=== PATIENT | female | born 1980 | race Caucasian/White ===

== ENCOUNTER 2022-01-23 19:29 | Emergency (ER) | payer MEDICAID, SELFPAY | END 2022-01-23 22:40 | disposition left against medical advice (07) | PROVIDERS: Emergency Provider Emergency Medicine; PCP Nurse Practitioner Primary Care | DX: D69.51 Posttransfusion purpura (principal) ==

== ENCOUNTER → 2022-05-22 09:30 | Outpatient (BNVA) | payer MEDICAID, SELFPAY | PROVIDERS: PCP Nurse Practitioner Primary Care; Visit Provider Physician Assistant Surgical | DX: Z13.89 Encounter for screening for other disorder (principal) ==

== ENCOUNTER 2023-03-07 10:43 | Outpatient (REF) | payer MEDICAID, SELFPAY ==
--- NOTE | ~2023-03-07 | XR_ITS ---
EXAMINATION: XR FOOT, LEFT CLINICAL INFORMATION: Left foot pain COMPARISON: Same-day left ankle TECHNIQUE: AP, lateral, and oblique views of the left foot. FINDINGS: The bones are intact. No fracture. Alignment is anatomic. Joint spaces are maintained. Small posterior plantar calcaneal spur and moderate size Achilles enthesopathy is noted. XR/XR foot LT min 3V IMPRESSION: No acute bony abnormality.
--- NOTE | ~2023-03-07 | XR_ITS ---
EXAMINATION: XR ANKLE, LEFT CLINICAL INFORMATION: Acute left ankle pain COMPARISON: None available. TECHNIQUE: AP and oblique views of the left ankle. FINDINGS: No fracture. Alignment is anatomic. No erosions. Joint spaces are maintained. Soft tissues are normal. XR/XR ankle LT 2V IMPRESSION: No bony abnormality.
== END 2023-03-07 10:44 | disposition home or self-care (01) ==
LOC: HO.XRAY 10:43
PROVIDERS: PCP Nurse Practitioner Primary Care; Visit Provider Nurse Practitioner Primary Care
DX: M25.572 Pain in left ankle and joints of left foot (principal); M79.672 Pain in left foot
CPT/HCPCS: 73600; 73630

== ENCOUNTER 2023-03-17 20:31 | Emergency (ER) | payer MEDICAID, SELFPAY ==
--- NOTE | ~2023-03-17 | XR_ITS ---
EXAMINATION: XR CHEST CLINICAL INFORMATION: Chest pain COMPARISON: None available. TECHNIQUE: 2 views of the chest were obtained. FINDINGS: Tiny area of linear atelectasis is present at the left lung base. No significant abnormality is noted involving the heart, lungs, mediastinum, bony thorax or soft tissues. XR/XR chest 2V IMPRESSION: No acute intrathoracic disease.
[2023-03-17 20:33] VITALS: BP 137/71; PULSE 83; RESP 14; TEMP 36.5; O2SAT 98; BMI 37.1
--- NOTE | 2023-03-17 20:36 | ECG_ITS ---
Test Reason : CHEST PAIN Blood Pressure : / mmHG Vent. Rate : 068 BPM Atrial Rate : 068 BPM P-R Int : 162 ms QRS Dur : 080 ms QT Int : 396 ms P-R-T Axes : 017 066 021 degrees QTc Int : 421 ms Normal sinus rhythm with sinus arrhythmia Normal ECG No previous ECGs available Referred By: Elvia Bobo Electronically Signed By:BHUPINDER CLINTON MD
--- NOTE | 2023-03-17 20:36 | ED.GENADULT ---
HPI - General Adult General Chief complaint: Chest Pain Stated complaint: pain under left breast.dizziness, ear pain Time Seen by Provider: 03/17/23 21:28 Source: patient Mode of arrival: ambulatory Limitations: no limitations History of Present Illness HPI narrative: Patient Been complaining of pain left lower ribs under the breast since early today apparently patient was bending down on the sofa edge no shortness of breath pain increases on deep breath Related Data Previous Rx's Medication Instructions Recorded ibuprofen 600 mg tablet 600 mg PO Q6H PRN fever or pain 03/17/23 #30 tabs Allergies Allergy/AdvReac Type Severity Reaction Status Date / Time No Known Allergies Allergy Verified 05/22/22 10:08 Review of Systems Review of Systems: Yes all other systems are reviewed and are negative [facility] Past Medical History Medical History Hyperlipidemia, unspecified Pseudotumor cerebri Iron deficiency anemia due to chronic blood loss Cardiovascular event risk Depressive disorder Asthma Social History Social History Household Members: Significant Other Advance Directives: No Advance Directives Information Provided: Yes Physical Exam ED Vital Signs: Vital Signs - 24 hr 03/17/23 20:33 Temperature 97.7 F Pulse Rate 83 Respiratory Rate 14 Blood Pressure 137/71 Pulse Oximetry 98 Oxygen Delivery Method Room Air BMI result Body Mass Index 37.1 Appearance: Alert. Oriented X3. No acute distress. Neck: Normal inspection. Neck supple. CVS: Normal heart rate and rhythm. Pulses normal. Respiratory: No respiratory distress. Equal air entry bilateral, no wheezing/rales/rhonchi tender left lower rib Abdomen: Soft and nontender. Bowel sounds are present, no mass palpable, no CVA tenderness Skin: Skin warm and dry. Normal skin color. Normal skin turgor. Extremities: No lower extremity edema. No calf tenderness Neuro: Oriented X 3. No motor deficit. Course Course Course Narrative: RME performed by Elvia Bobo PA-C. Patient is a 42 year old assigned female at presenting to the emergency department with left sided chest pain. Labs, imaging, and swabs ordered. Patient placed back in the waiting room pending room availability and results. Medications Administered Discontinued Medications Generic Name Dose Route Start Last Admin Trade Name Freq PRN Reason Stop Dose Admin Tramadol HCl 50 mg 11/20/23 21:51 03/17/23 22:04 Tramadol Hcl 50 Mg Tablet PO 03/17/23 21:52 50 mg ONCE ONE Administration Medical Decision Making Medical Decision Making [facility] Narrative: Patient clinically musculoskeletal pain when she bent down and hit the edge of the sofa to her left lower ribs x-rays negative for fracture lungs are clear discharge patient home on ibuprofen Differential Diagnosis Differential Diagnoses: The differential diagnosis associated with the presentation includes Musculoskeletal pain/rib contusion/rib fracture Lab Data [facility] Lab Attestation statement: I reviewed the patient's lab results. 03/17/23 20:52 03/17/23 20:52 Labs: Lab Results 03/17/23 Range/Units 20:52 WBC 9.4 (4.8-10.8) X10*3/uL RBC 4.11 L (4.20-5.50) X10*6/uL Hgb 10.0 L (12.0-16.0) g/dl Hct 32.3 L (37.0-47.0) % MCV 78.6 L (80.0-98.0) fL MCH 24.3 L (27.0-33.0) pg MCHC 31.0 (31.0-35.0) g/dl RDW 15.7 (11.0-16.0) % Plt Count 259 (160-400) X10*3/uL MPV 9.6 (9.4-12.3) fL Immature Gran % (Auto) 0.5 H (0.0-0.4) % Neut % (Auto) 61.6 (45-73) % Lymph % (Auto) 29.8 (20-40) % Daniels % (Auto) 6.5 (2-11) % Eos % (Auto) 1.4 (0-4) % Baso % (Auto) 0.2 (0-2) % Lymph # (Auto) 2.8 (1.2-4.9) X10*3/uL Daniels # (Auto) 0.6 (0.1-1.2) X10*3/uL Eos # (Auto) 0.1 (0.0-0.4) X10*3/uL Baso # (Auto) 0.0 (0.0-0.2) X10*3/uL Abs Immat Gran (auto) 0.05 H (0.00-0.03) X10*3/uL Absolute Neuts (auto) 5.8 (2.0-8.3) x10*3/uL Absolute Nucleated RBC 0.000 (0.0-0.012) X10*3/uL Nucleated RBC % (auto) 0.0 (0.0-0.2) /100WBC PT 11.7 (11.1-13.3) SEC INR 1.0 (0.9-1.1) APTT 30.3 (26.0-36.4) SEC Sodium 141 (135-145) mmol/L Potassium 3.6 (3.3-5.1) mmol/L Chloride 109 H (96-108) mmol/L Carbon Dioxide 25 (22-29) mmol/L Anion Gap 11 L (12-20) BUN 7 L (9-16) mg/dL Creatinine 0.90 (0.5-1.4) mg/dL Estim Creat Clear Calc 95.9 Estimated GFR > 60 Random Glucose 114 (60-115) mg/dL Calcium 9.0 (8.4-10.2) mg/dL Magnesium 1.8 (1.6-2.6) mg/dL Total Bilirubin 0.3 (0.0-1.0) mg/dL AST 13 (5-31) U/L ALT 13 (0-31) U/L Alkaline Phosphatase 55 (39-117) U/L Troponin I High Sens < 2.7 (<3.5-17.0) ng/L Total Protein 6.8 (6.5-8.0) g/dL Albumin 3.9 (3.5-5.0) g/dL Influenza Type A (PCR) NEGATIVE (Negative) Influenza Type B (PCR) NEGATIVE (Negative) RSV RNA Qual (PCR) NEGATIVE (Negative) SARS-CoV-2 RNA (RT-PCR) NEGATIVE (Negative) Independent Interpretation I performed an independent interpretation of an: Plain X-Ray Radiology Impression Discussion of test interpretation with radiology: I have reviewed the radiologist's reading. Discharge Plan Discharge Clinical Impression: Anterior chest wall pain Patient Disposition: Home, Self-Care Instructions: Chest Wall Pain (ED) Additional Instructions: Likely have rib contusion take pain medication as prescribed Prescriptions: New ibuprofen 600 mg tablet 600 mg PO Q6H PRN (Reason: fever or pain) Qty: 30 0RF Interventions: ED Discharge Assessment Last Done: 03/17/23 22:31 Discharge Date/Time: 03/17/23 22:31
[2023-03-17 21:03] LABS: Basophils Percent Auto 0.2 % (0-2); Eosinophils Absolute Auto 0.1 X10*3/uL (0.0-0.4); Eosinophils Percent Auto 1.4 % (0-4); Hematocrit 32.3 % (37.0-47.0); Imm Gran Abs Auto 0.05 X10*3/uL (0.00-0.03); Imm Gran Pct Auto 0.5 % (0.0-0.4); Lymphocytes Absolute Auto 2.8 X10*3/uL (1.2-4.9); Lymphocytes Percent Auto 29.8 % (20-40); MANUAL DIFF FLAG NO; Mean Corpuscular Hemoglobin 24.3 pg (27.0-33.0); Mean Corpuscular Volume 78.6 fL (80.0-98.0); Mean Platelet Volume 9.6 fL (9.4-12.3); Monocytes Absolute Auto 0.6 X10*3/uL (0.1-1.2); Monocytes Percent Auto 6.5 % (2-11); Neutrophils Absolute Auto 5.8 x10*3/uL (2.0-8.3); Neutrophils Percent Auto 61.6 % (45-73); Platelet Count 259 X10*3/uL (160-400); Red Blood Count 4.11 X10*6/uL (4.20-5.50); Red Cell Distribution Width 15.7 % (11.0-16.0); White Blood Count 9.4 X10*3/uL (4.8-10.8)
[2023-03-17 21:12] LABS: Prothrombin Time 11.7 SEC (11.1-13.3)
[2023-03-17 21:15] LABS: Partial Thromboplastin Time 30.3 SEC (26.0-36.4)
[2023-03-17 21:23] LABS: Alanine Aminotransferase 13 U/L (0-31); Albumin Level 3.9 g/dL (3.5-5.0); Alkaline Phosphatase 55 U/L (39-117); Anion Gap 11 (12-20); Aspartate Amino Transferase 13 U/L (5-31); Bilirubin Total 0.3 mg/dL (0.0-1.0); Blood Urea Nitrogen 7 mg/dL (9-16); Carbon Dioxide 25 mmol/L (22-29); Chloride 109 mmol/L (96-108); Creatinine Clr Calc Pharmacy 95.9; Estimated Glomerular Filt Rate > 60; Glucose Random 114 mg/dL (60-115); Magnesium 1.8 mg/dL (1.6-2.6); Potassium 3.6 mmol/L (3.3-5.1); Sodium 141 mmol/L (135-145); Total Protein 6.8 g/dL (6.5-8.0)
[2023-03-17 21:36] LABS: Troponin-I High Sensitivity < 2.7 ng/L (<3.5-17.0)
[2023-03-17 21:50] LABS: Influenza A PCR NEGATIVE (Negative); Influenza B PCR NEGATIVE (Negative); Resp Syncy Virus RNA Qual PCR NEGATIVE (Negative); SARS COV2 PCR INHOUSE NEGATIVE (Negative)
[2023-03-17] MEDS: traMADoL HCL 50 MG TABLET PO (22:04)
== END 2023-03-17 22:31 | disposition home or self-care (01) ==
LOC: HO.ED 22:30
PROVIDERS: Physician Assistant Medical; Emergency Provider Internal Medicine; PCP Nurse Practitioner Primary Care
DX: R07.89 Other chest pain (principal); E78.5 Hyperlipidemia, unspecified; D50.9 Iron deficiency anemia, unspecified; Z20.822 Contact with and (suspected) exposure to COVID-19; Z20.828 Contact with and (suspected) exposure to other viral communicable diseases; Z87.891 Personal history of nicotine dependence
CPT/HCPCS: 0241U; 71046; 80053; 83735; 84484; 85025; 85610; 85730; 93005; 99283; 99284

== ENCOUNTER 2023-03-27 09:03 | Outpatient (AMB) | payer MEDICAID, SELFPAY ==
[2023-03-27 09:09] VITALS: BP 128/70; PULSE 90; TEMP 36.3; O2SAT 98; BMI 36.9
--- NOTE | 2023-03-27 09:09 | A.OFFVIS_ITS ---
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 Reports generalized body pains making it difficult to sleep. Was given Tramadol for a chest spasm which she has also taken for the pain and has found relief. Reports cold sensation in the bones for 6 months. Cold and rainy days make her pain worst specially on left hip, down the left leg. Finds relief when bending the left knee. 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 NO prior clinical safety specialist. Medicare Compliance Auditor Required: No Accompanied by: Self / Same As Patient Allergies No Known Allergies Allergy (Verified 03/27/23 09:18) HPI HPI Comments History of Present Illness Details Ms. Leonarda rodriguez 42-year-old female referred for evaluation of left ankle enthesopathy. Patient reports she had ankle pain and was evaluated by her PCP who took an x-ray and they sent her to Rheumatology for further workup. She also reports left-sided pain to her gluteal muscle. Additionally, a time left lateral thigh to feels numb with a weird pain. It sometimes wakes her up at night and she has to constantly turning to change sides during sleep. The pain travels down from her gluteal muscle to the side of her knees at times. She reports that sometimes her left leg feels weak like it is going to fall out from under her. She takes Aleve that sometimes help but the last 2-3 hours and Tylenol is of no effect Patient denies Raynaud's phenomenon, butterfly rash on face ; denies photosensitivity - getting sick or developing a rash from being out in the sun; denies blood or froth in urine; patient denies hx of SOB, chest pain. Patient denies hx of Carditis or Pleuritis. The patient reports never have had o take aspirin or a blood thinner during the successful pregnancies. Denies fevers, excessive fatigue, unexplained weight-loss or weight-gain, Denies: thinning hair or hair loss Denies: dry, itchy eyes, red burning eyes needing steroids to treat. She does report that she was told she has increased pressure in her high and possible glaucoma in the right. Patient denied dry mouth, mouth sores or ulcers; nose bleed; ringing in the ear, She has abdominal pain to right upper quadrant but workup was unrevealing and she was put on a PPI. Patient has bouts of constipation that can last up to 4 days. However, she denies blood or mucous in stool; nausea, vomiting and diarrhea , difficulty swallowing, heartburn. Colonoscopy 1 year ago at [facility] - no concerns per patient. Denies morning stiffness lasting more than 10 mins. She deines red, warm swollen joints. Denies dactylitis, uveitis, plantar fasciitis, low back pain, elbow tendinitis. [facility] Medical History (Updated 03/27/23 @ 10:18 by ENOC Charles-) Piriformis syndrome of left side Left sciatic nerve pain Plantar fasciitis of left foot Psoriasis Enthesopathy of ankle Hyperlipidemia, unspecified Pseudotumor cerebri Iron deficiency anemia due to chronic blood loss Cardiovascular event risk Depressive disorder Asthma Family History (Updated 03/27/23 @ 09:21 by GISELA Aldana) Maternal Aunt Hx of autoimmune disorder Mother Arthritis Maternal Grandmother Arthritis Social History (Updated 03/27/23 @ 09:19 by GISELA Aldana) Household Members: Significant Other Alcohol intake: current Alcohol intake frequency: holidays/special occasions only Patient Tobacco Use Status: Former Tobacco user Years Smoked: 5 Current occupational status: unemployed Female Reproductive History Menstrual Total pregnancies: 6 Review of Systems Const All systems reviewed & are unremarkable except as noted in HPI and below Physical Exam Vital Signs: Last Vital Signs Temp 97.4 F 03/27/23 09:09 Pulse 90 03/27/23 09:09 Pulse Ox 98 03/27/23 09:09 Oxygen Delivery Method Room Air 03/27/23 09:09 BMI result Body Mass Index 36.9 BP 128/70 APPEARANCE: Patient in no acute distress EYES no redness, pupils equal and reactive to light, eyelids normal EARS:? External ear normal, canal clear and tympanic membrane normal. NOSE/SINUS:? Airflow through both nares, no nasal discharge, no bleeding THROAT:? Oral mucosa moist, no ulcerations NECK:? No thyromegaly or masses, no adenopathy, trachea midline. HEART:? Regulrar rhythm, S1-S2 heard, no murmurs, rubs or gallops. LUNG:? Clear to percussion and auscultation ABD:? Normal bowel sounds, no organomegaly, masses or tenderness. EXTREMITIES:? No edema, no calf tenderness, normal peripheral pulses. NEURO:? Oriented and alert x3.? No focal weakness.? Reflexes symmetric.? Gait normal. SKIN:? There are scattered small 1 to 2 cm erythematous lesions on bilateral lower legs, largest on left calf with mild scaling. Disfigured fingernail rate 2nd due to injury per patient. Left great toe psoriasis versus fungus. -brittle nails both toes and fingers. No objective signs of Raynaud's phenomenon. JOINT EXAM: ?Cervical Spine:.? Full range of motion without pain; no tenderness. Thoracic Spine:.? No scoliosis.? No tenderness on palpation. Lumbar Spine:.? Alignment normal.? Full range of motion without pain, no tenderness. Chest Wall:.? No tenderness, swelling, increased warmth or erythema. Hands:.? Normal pain-free range of motion without tenderness, swelling, increased warmth or erythema. Able to make a full fist and has a good flask pusher strength. mild tenderness in MCP grove of left 2nd and 3rd fingers Wrists:.? Normal pain-free range of motion without tenderness, swelling, increased warmth or erythema. Elbows:. Normal pain-free range of motion without tenderness, swelling, increased warmth or erythema. mild tenderness to left lateral epicondyle Shoulders:.?? Full range of motion without pain. No tenderness, weakness, swelling, increased warmth or erythema. Hips:.? Full range of motion without pain. Hip bursa:.?Moderate tenderness to left bursa, lateral mid Gluteal muscle pin point tenderness Knees:.?? Normal pain-free range of motion without tenderness, swelling, i ncreased warmth or erythema.? There is no effusion or crepitation Ankles:.? Normal pain-free range of motion without swelling, increased warmth or erythema. Left heel, plantar and achilles tenderness, Feet:.? Normal pain-free range of motion without swelling, increased warmth or erythema. tenderness to dorsum left football scout points:? No tenderness to digital palpation at the occiput, trapezius, second rib, right lateral epicondyle, knees, greater trochanter and gluteal area bilaterally. ? Office Procedures Joint Injection/Drain Joint Injection/Drain Details: Left Piriformis Muscle/Sciatica Injection Primary Site: other Injected: 40 mg of, Kenalog, with 1 mL of and 1% plain lidocaine Approach Used: anterolateral Procedure: The patient tolerated the procedure well Coding 74188 - Sternocleidomastoid/Piriformis Procedure code (CPT) selection complete Results Reviewed Results Reviewed: FINDINGS: Tiny area of linear atelectasis is present at the left lung base. No significant abnormality is noted involving the heart, lungs, mediastinum, bony thorax or soft tissues. XR/XR chest 2V IMPRESSION: No acute intrathoracic disease. TECHNIQUE: AP, lateral, and oblique views of the left foot. FINDINGS: The bones are intact. No fracture. Alignment is anatomic. Joint spaces are maintained. Small posterior plantar calcaneal spur and moderate size Achilles enthesopathy is noted. FINDINGS: No fracture. Alignment is anatomic. No erosions. Joint spaces are maintained. Soft tissues are normal. XR/XR ankle LT 2V IMPRESSION: No bony abnormality. Laboratory Tests 03/17/23 20:52 RBC 4.11 L Hgb 10.0 L Hct 32.3 L MCV 78.6 L MCH 24.3 L Immature Gran % (Auto) 0.5 H Abs Immat Gran (auto) 0.05 H Chloride 109 H Anion Gap 11 L BUN 7 L Assessment & Plan Assessment & Plan (1) Enthesopathy of ankle: Code(s): M77.50 - Other enthesopathy of unspecified foot and ankle (2) Psoriasis: Code(s): L40.9 - Psoriasis, unspecified (3) Plantar fasciitis of left foot: Code(s): M72.2 - Plantar fascial fibromatosis (4) Piriformis syndrome of left side: Code(s): G57.02 - Lesion of sciatic nerve, left lower limb (5) Left sciatic nerve pain: Code(s): M54.32 - Sciatica, left side Plan #Left Ankle Enthesopathy/Psoriasis/PsA: Ms. Eric, 42-year-old female, referred to our practice by PCP for evaluation of left ankle enthesopathy. 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 She has scattered lesions on her lower extremities that she says happens intermittently since 2017. They are effectively treated with hydrocortisone cream and oatmeal exfoliate. 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 Per patient she does not get them when she is m ore exposed to the sun in [place]. Left Ankle Xray shows small posterior plantar calcaneal spur and moderate size Achilles enthesopathy. She does have tenderness on PE of the left Achilles, none on the right. I will obtain additional imaging to assess the right ankle. Patient denies chronic tendinitis and tenderness in other joints, and none observed on PE. Enthisitis a common occurrence in the presence of SPA such as PsA. She denies other signs symptoms of psoriatic arthritis such as uveitis, red warm swollen joints, DIP tenderness, dactylitis and lower back pain. She does endorses IBS. She does have thin nails but no pitting observe. The great left toenail does have look of psoriasis or possible fungal. Nonetheless I do not think she requires empiric treatment at this time. Her psoriasis is being effectively treated with topical hydrocortisone. I will refer her to Podiatry for further evaluation of her left foot as patient describe what could possibly be plantar fasciitis and she does have a heel spur also seen on xray which is painful for her. I anticipate that podiatry can help. At this time I will do thin it is necessary to start a systemic immunomdulator. Will continue to monitor for increase in and worsening of symptoms. Will review with patient Possible Dermatology evaluation. #Left Sciatic Nerve/Piriformis Muscle: I think she will benefit from physical therapy for her left sciatic nerve pain and piriformis muscle pain. It seems reasonable to me so I gave her an injection that could help relieve the acute discomfort. Patient cautioned to modify her activities not to engage in anything strenuous for the next couple of day steroids. Orders: Orders Anti Extractable Nuclear Ag Today L40.9 - Psoriasis, unspecified, M77.50 - Other enthesopathy of unspecified foot and ankle C Reactive Protein Today L40.9 - Psoriasis, unspecified, M77.50 - Other enthesopathy of unspecified foot and ankle Erythrocyte Sedimentation Rate Today L40.9 - Psoriasis, unspecified, M77.50 - Other enthesopathy of unspecified foot and ankle RUSSELL Reflex Titer and Pattern Today L40.9 - Psoriasis, unspecified, M77.50 - Other enthesopathy of unspecified foot and ankle Creatine Kinase Total Today L40.9 - Psoriasis, unspecified, M77.50 - Other enthesopathy of unspecified foot and ankle Aldolase Today L40.9 - Psoriasis, unspecified, M77.50 - Other enthesopathy of unspecified foot and ankle HLA B27 Today L40.9 - Psoriasis, unspecified, M77.50 - Other enthesopathy of unspecified foot and ankle PT Evaluation and Treatment Today G57.02 - Lesion of sciatic nerve, left lower limb, M54.32 - Sciatica, left side Referrals Podiatry Referral M72.2 - Plantar fascial fibromatosis, M77.50 - Other enthesopathy of unspecified foot and ankle Coding Level of Care Code New Pt Level 4 (09553) Diagnoses Enthesopathy of ankle M77.50 Psoriasis L40.9 Plantar fasciitis of left foot M72.2 Piriformis syndrome of left side G57.02 Left sciatic nerve pain M54.32 CPT Codes Coding - Joint 3: 32727 - Sternocleidomastoid/Piriformis ([id number])
== END 2023-03-27 10:35 | disposition home or self-care (01) ==
PROVIDERS: PCP Nurse Practitioner Primary Care; Visit Provider Nurse Practitioner Family
DX: M77.50 Other enthesopathy of unspecified foot and ankle (principal); L40.9 Psoriasis, unspecified; M72.2 Plantar fascial fibromatosis; G57.02 Lesion of sciatic nerve, left lower limb; M54.32 Sciatica, left side
CPT/HCPCS: 20552; 99204

== ENCOUNTER → 2023-03-27 09:03 | Outpatient (BNVA) | payer MEDICAID, SELFPAY | PROVIDERS: PCP Nurse Practitioner Primary Care; Visit Provider Nurse Practitioner Family | DX: M77.50 Other enthesopathy of unspecified foot and ankle (principal); M72.2 Plantar fascial fibromatosis; M54.32 Sciatica, left side; L40.9 Psoriasis, unspecified; G57.02 Lesion of sciatic nerve, left lower limb | CPT/HCPCS: 20552; 99212 ==

== ENCOUNTER 2023-04-01 13:59 | Outpatient (REF) | payer MEDICAID, SELFPAY ==
[2023-04-01 15:11] LABS: C Reactive Protein 0.87 mg/dL (< or = 0.50)
[2023-04-01 15:24] LABS: Erythrocyte Sedimentation Rate 9 MM/HR (0-20)
[2023-04-04 12:24] LABS: SM/Ribonucleoprotein Ab <1.0 NEG AI (<1.0 NEG); Smith Protein <1.0 NEG AI (<1.0 NEG)
[2023-04-05 17:27] LABS: HLA B27 Negative (Negative)
[2023-04-06 14:49] LABS: Aldolase 3.8 U/L (<=8.1)
[2023-04-07 14:14] LABS: Anti Nuclear Antibody Screen NEGATIVE (NEGATIVE)
== END 2023-04-01 14:00 | disposition home or self-care (01) ==
LOC: HO.LAB 13:59
PROVIDERS: PCP Nurse Practitioner Primary Care; Visit Provider Nurse Practitioner Family
DX: M77.50 Other enthesopathy of unspecified foot and ankle (principal); L40.9 Psoriasis, unspecified
CPT/HCPCS: 36415; 82085; 82550; 85652; 86038; 86140; 86235; 86812

== ENCOUNTER 2023-05-06 09:36 | Outpatient (AMB) | payer MEDICAID, SELFPAY ==
--- NOTE | 2023-05-06 09:37 | A.OFFVIS_ITS ---
Intake Vital Signs 05/06/23 09:48 Height 5 ft 5 in Weight 218 lb 14.704 oz BMI 36.4 BP 100/60 Blood Pressure Location Rt brachial Position Sitting Pulse 77 Pulse Source Pulse Oximeter Temp 97.7 F Temp Source Skin Pulse Oximetry (%) 97 Oxygen Delivery Method Room Air Intake Visit Reasons: PsO, Left Ankle Enthesitis, Left Sciatica Intake Note: Patient last seen 03/27/23, presents today for follow up and test results. c/o left ankle pain c/o hand shakiness x 1 mo, has caught herself close to dropping items c/o left thumb pulling back Reports receiving a series of 3 injections on left shoulder at PCP's office. ? Euglexxa. Heavy Repairer Required: No Accompanied by: Self / Same As Patient Allergies No Known Allergies Allergy (Verified 05/06/23 09:49) HPI HPI Comments History of Present Illness Details Ms. Eric 42-year-old female has returned for follow-up to her initial evaluation of left ankle enthesopathy. She expresses relief from the injection to the left trochanteric bursa and gluteal muscle. She continues with pain to her left ankle. She has new onset of lower back pain which she thinks was incited by sudden twist in her body movement. Lower back pain is helped with Aleve which lasts about 6 hours per patient;hot showers also help. The patient describes that she thinks she would benefit from using a compression device to her abdomen which she Avinash does cause additional strain and stress to her lower back due to the increase weight gain in her abdomen. She has not yet started PT as prescribed last visit - she desires to resolve the concerns with her lower back before starting PT. Per patient her ankle pain is worse during the colder weather Prior Visit Ms. Eric 42-year-old female referred for evaluation of left ankle enthesopathy. Patient reports she had ankle pain and was evaluated by her PCP who took an x-ray and they sent her to Rheumatology for further workup. She also reports left-sided pain to her gluteal muscle. Additionally, a time left lateral thigh to feels numb with a weird pain. It sometimes wakes her up at night and she has to constantly turning to change sides during sleep. The pain travels down from her gluteal muscle to the side of her knees at times. She reports that sometimes her left leg feels weak like it is going to fall out from under her. She takes Aleve that sometimes help but the last 2-3 hours and Tylenol is of no effect Patient denies Raynaud's phenomenon, butterfly rash on face ; denies photosensitivity - getting sick or developing a rash from being out in the sun; denies blood or froth in urine; patient denies hx of SOB, chest pain. Patient denies hx of Carditis or Pleuritis. The patient reports never have had o take aspirin or a blood thinner during the successful pregnancies. Denies fevers, excessive fatigue, unexplained weight-loss or weight-gain, Denies: thinning hair or hair loss Denies: dry, itchy eyes, red burning eyes needing steroids to treat. She does report that she was told she has increased pressure in her high and possible glaucoma in the right. Patient denied dry mouth, mouth sores or ulcers; nose bleed; ringing in the ear, She has abdominal pain to right upper quadrant but workup was unrevealing and she was put on a PPI. Patient has bouts of constipation that can last up to 4 days. However, she denies blood or mucous in stool; nausea, vomiting and diarrhea , difficulty swallowing, heartburn. Colonoscopy 1 year ago at [facility] - no concerns per patient. Denies morning stiffness lasting more than 10 mins. She deines red, warm swollen joints. Denies dactylitis, uveitis, plantar fasciitis, low back pain, elbow tendinitis. [facility] Medical History (Updated 03/27/23 @ 10:18 by Rachel Allen [facility]) Piriformis syndrome of left side Left sciatic nerve pain Plantar fasciitis of left foot Psoriasis Enthesopathy of ankle Hyperlipidemia, unspecified Pseudotumor cerebri Iron deficiency anemia due to chronic blood loss Cardiovascular event risk Depressive disorder Asthma Family History Maternal Aunt Hx of autoimmune disorder Mother Arthritis Maternal Grandmother Arthritis Social History (Updated 05/06/23 @ 09:52 by GISELA Cruz) Household Members: Significant Other Alcohol intake: current Alcohol intake frequency: holidays/special occasions only Patient Tobacco Use Status: Former Tobacco user Years Smoked: 5 Substance Use Type: Marijuana Current occupational status: unemployed Review of Systems Const All systems reviewed & are unremarkable except as noted in HPI and below Physical Exam Vital Signs: Last Vital Signs Temp 97.7 F 05/06/23 09:48 Pulse 77 05/06/23 09:48 BP 100/60 05/06/23 09:48 Pulse Ox 97 05/06/23 09:48 Oxygen Delivery Method Room Air 05/06/23 09:48 BMI result Body Mass Index 36.4 BP 128/70 APPEARANCE: Patient in no acute distress EYES no redness, pupils equal and reactive to light, eyelids normal EARS:? External ear normal, canal clear and tympanic membrane normal. NOSE/SINUS:? Airflow through both nares, no nasal discharge, no bleeding THROAT:? Oral mucosa moist, no ulcerations NECK:? No thyromegaly or masses, no adenopathy, trachea midline. HEART:? Regulrar rhythm, S1-S2 heard, no murmurs, rubs or gallops. LUNG:? Clear to percussion and auscultation ABD:? Normal bowel sounds, no organomegaly, masses or tenderness. EXTREMITIES:? No edema, no calf tenderness, normal peripheral pulses. NEURO:? Oriented and alert x3.? No focal weakness.? Reflexes symmetric.? Gait normal. SKIN:? The scattered small 1 to 2 cm erythematous lesions on bilateral lower legs, largest on left calf with mild scaling that was previous, has resolved ast this visit. Disfigured fingernail rate 2nd due to injury per patient. Left great toe psoriasis versus fungus. -brittle nails both toes and fingers. No objective signs of Raynaud's phenomenon. JOINT EXAM: Cervical Spine:.? Full range of motion without pain; no tenderness. Thoracic Spine:.? No scoliosis.? No tenderness on palpation. Lumbar Spine:.? Alignment normal.?Reduced range of motion without pain, with tenderness. Chest Wall:.? No tenderness, swelling, increased warmth or erythema. Hands:.? Normal pain-free range of motion without tenderness, swelling, increased warmth or erythema. 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 mild tenderness in MCP grove of left 2nd and 3rd fingers Wrists:.? Normal pain-free range of motion without tenderness, swelling, increased warmth or erythema. Elbows:. Normal pain-free range of motion without tenderness, swelling, increased warmth or erythema. mild tenderness to left lateral epicondyle Shoulders:.?? Full range of motion without pain. No tenderness, weakness, swelling, increased warmth or erythema. Hips:.? Full range of motion without pain. Hip bursa:.?No tenderness to left or right bursa. Left lateral mid Gluteal muscle pin point tenderness has resolved Knees:.?? Normal pain-free range of motion without tenderness, swelling, increased warmth or erythema.? There is no effusion or crepitation Ankles:.? Normal pain-free range of motion without swelling, increased warmth or erythema. Left heel, plantar and achilles tenderness, Feet:.? Normal pain-free range of motion without swelling, increased warmth or erythema. 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 No tenderness to digital palpation at the occiput, trapezius, second rib, right lateral epicondyle, knees, greater trochanter and gluteal area bilaterally. ? Assessment & Plan Assessment & Plan (1) Enthesopathy of ankle: Code(s): M77.50 - Other enthesopathy of unspecified foot and ankle (2) Psoriasis: Code(s): L40.9 - Psoriasis, unspecified (3) Plantar fasciitis of left foot: Code(s): M72.2 - Plantar fascial fibromatosis (4) Piriformis syndrome of left side: Code(s): G57.02 - Lesion of sciatic nerve, left lower limb (5) Left sciatic nerve pain: Code(s): M54.32 - Sciatica, left side Plan #Left Ankle Enthesopathy/Psoriasis/PsA: Ms. Eric, 42-year-old female, returns for follow-up of left ankle enthesopathy. Serology was unrevealing (Negative for CCP, RF, HLAB27, ESR, RUSSELL). There was a mild elevation in CRP at 0.87. Though the patient may have symptoms for mild onset of PSA, at this time I do not think there is a need for immunosuppressive therapy. 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 Bilateral Ankle Xray shows small posterior plantar calcaneal spur and moderate size Achilles enthesopathy. She does have tenderness on PE of the left Achilles, none on the right. Patient denies chronic tendinitis and tenderness in other joints, and none observed on PE. Enthisitis a common occurrence in the presence of SPA such as PsA. She denies other signs symptoms of psoriatic arthritis such as uveitis, red warm swollen joints, DIP tenderness, dactylitis and lower back pain. She does endorses IBS. She does have thin nails but no pitting observe. The great left toenail does have look of psoriasis or possible fungal. Nonetheless I do not think she requires empiric treatment at this time. Her psoriasis is being effectively treated with topical hydrocortisone. She has an active referral to Podiatry for further evaluation of her left foot as patient described what could possibly be plantar fasciitis and she does have a heel spur also seen on xray which is painful for her. I anticipate that podiatry can help. At this time I will do think it is necessary to start a systemic immunomdulator. Will continue to monitor for increase in and worsening of symptoms. #Left Sciatic Nerve/Piriformis Muscle: She has an active referral to physical therapy for her left sciatic nerve pain and piriformis muscle pain but did not start. The cortisone injection given at last visit seem to have helped. Follow-up in 4 months I have spent 20 minutes reviewing chart, evaluating patient, and documenting. Coding Level of Care Code Est Pt Level 3 (38145) Diagnoses Enthesopathy of ankle M77.50 Psoriasis L40.9 Plantar fasciitis of left foot M72.2 Piriformis syndrome of left side G57.02 Left sciatic nerve pain M54.32
[2023-05-06 09:48] VITALS: BP 100/60; PULSE 77; TEMP 36.5; O2SAT 97; BMI 36.4
== END 2023-05-06 10:25 | disposition home or self-care (01) ==
PROVIDERS: PCP Nurse Practitioner Primary Care; Visit Provider Nurse Practitioner Family
DX: M77.52 Other enthesopathy of left foot and ankle (principal); L40.9 Psoriasis, unspecified; M72.2 Plantar fascial fibromatosis; G57.02 Lesion of sciatic nerve, left lower limb; M54.32 Sciatica, left side
CPT/HCPCS: 99213

== ENCOUNTER → 2023-05-06 09:36 | Outpatient (BNVA) | payer MEDICAID, SELFPAY | PROVIDERS: PCP Nurse Practitioner Primary Care; Visit Provider Nurse Practitioner Family | DX: M77.50 Other enthesopathy of unspecified foot and ankle (principal); M54.32 Sciatica, left side; L40.9 Psoriasis, unspecified; M72.2 Plantar fascial fibromatosis; G57.02 Lesion of sciatic nerve, left lower limb | CPT/HCPCS: 99212 ==

== ENCOUNTER 2023-08-20 | Outpatient (REF) | payer MEDICAID, SELFPAY ==
[2023-08-21 11:59] LABS: Appearance Urine Turbid; Color Urine Yellow; Glucose Urine UA Negative (Negative); Leukocyte Esterase Urine Trace (Negative); Nitrite Urine Negative (Negative); PH 5.5 (5.0-9.0); UMIC TRIGGER UACC YES; Urine Blood Negative (Negative); Urine Ketones Negative (Negative); Urine Protein Negative (Neg-Trace)
[2023-08-21 12:03] LABS: Bacteria Urine None Seen (None Seen); Hyaline Casts Urine 0-2 /LPF (0-2); RBC Urine 0-2 /HPF (0-2); WBC Urine 0-5 /HPF (0-5)
== END 2023-08-20 00:01 | disposition home or self-care (01) ==
LOC: HO.HHCLNP
PROVIDERS: Visit Provider Family Medicine
DX: R10.9 Unspecified abdominal pain (principal); R82.90 Unspecified abnormal findings in urine
CPT/HCPCS: 81001

== ENCOUNTER 2023-08-22 13:01 | Outpatient (REF) | payer MEDICAID, SELFPAY ==
--- NOTE | ~2023-08-22 | US_ITS ---
EXAMINATION: US RETROPERITONEAL LIMITED (RENAL ONLY) CLINICAL INFORMATION: Right flank pain. COMPARISON: None available. TECHNIQUE: Real-time imaging of the kidneys. FINDINGS: RIGHT KIDNEY: 11.3 x 4.2 x 5.1 cm (SAG x AP x TRV). The kidney is normal in size, contour, and echogenicity. Renal cortical thickness is normal. No calculi or focal parenchymal lesions. No hydronephrosis. Hyperechoic area is seen in upper right renal cortex measuring 0.4 x 0.5 cm in size, visible only on the longitudinal images. Nonspecific right lower renal pole echogenic focus without twinkle artifact is present. LEFT KIDNEY: 11.8 x 5.8 x 4.2 cm (SAG x AP x TRV). The kidney is normal in size, contour, and echogenicity. Renal cortical thickness is normal. No calculi or focal parenchymal lesions. No hydronephrosis. US/US renal BI IMPRESSION: 1. No hydronephrosis. 2. Nonspecific right lower renal pole echogenic focus without twinkle artifact is present, may represent atherosclerotic calcification. 3. Hyperechoic area in upper right renal cortex measuring 0.4 x 0.5 cm in size, visible only on the longitudinal images, could be suggestive of angiomyolipoma. 4. Consider follow-up ultrasound in 6 months.
--- NOTE | ~2023-08-22 | XR_ITS ---
EXAMINATION: XR CHEST CLINICAL INFORMATION: Pleuritic pain/flank pain COMPARISON: Chest 03/17/2023 TECHNIQUE: 2 views of the chest were obtained. FINDINGS: No significant abnormality is noted involving the heart, lungs, mediastinum, bony thorax or soft tissues. XR/XR chest 2V IMPRESSION: No acute cardiopulmonary disease.
== END 2023-08-22 13:02 | disposition home or self-care (01) ==
LOC: HO.US 13:01
PROVIDERS: PCP Nurse Practitioner Primary Care; Visit Provider Family Medicine
DX: R07.81 Pleurodynia (principal); R10.9 Unspecified abdominal pain
CPT/HCPCS: 71046; 76775

== ENCOUNTER 2023-09-04 10:06 | Outpatient (AMB) | payer MEDICAID, SELFPAY ==
--- NOTE | 2023-09-04 10:12 | MHC.OFFVIS ---
Vital Signs 09/04/23 10:17 Height 5 ft 5 in Weight 218 lb 0.595 oz BMI 36.3 BP 138/78 Blood Pressure Location Rt brachial Position Sitting Pulse 73 Pulse Source Pulse Oximeter Pulse Oximetry (%) 98 Oxygen Delivery Method Room Air Intake Visit Reasons: Sciatica/Low Back Pain/CM Intake Note: Patient presents today c/o worsening left knee pain that radiates to the left hip. Patient is also experiencing bucky knee pain that gets very uncomfortable around 8-9am. She is also having feet pain when staning for a long period of time. Gripper Installer Required: No Accompanied by: Self / Same As Patient Allergies No Known Allergies Allergy (Verified 09/04/23 10:18) HPI Comments Details: Ms. Eric 42-year-old female has returned for follow-up of her left ankle enthesopathy and Trochanteric Bursitis. . She expresses relief from the injection to the left trochanteric bursa and gluteal muscle. given at She continues with pain to her left ankle. She has new onset of lower back pain which she thinks was incited by sudden twist in her body movement. Lower back pain is helped with Aleve which lasts about 6 hours per patient;hot showers also help. The patient describes that she thinks she would benefit from using a compression device to her abdomen which she Avinash does cause additional strain and stress to her lower back due to the increase weight gain in her abdomen. She has not yet started PT as prescribed last visit - she desires to resolve the concerns with her lower back before starting PT. Per patient her ankle pain is worse during the colder weather 04/28/2023:Ms. Eric 42-year-old female has returned for follow-up to her initial evaluation of left ankle enthesopathy. She expresses relief from the injection to the left trochanteric bursa and gluteal muscle. She continues with pain to her left ankle. She has new onset of lower back pain which she thinks was incited by sudden twist in her body movement. Lower back pain is helped with Aleve which lasts about 6 hours per patient;hot showers also help. The patient describes that she thinks she would benefit from using a compression device to her abdomen which she Avinash does cause additional strain and stress to her lower back due to the increase weight gain in her abdomen. She has not yet started PT as prescribed last visit - she desires to resolve the concerns with her lower back before starting PT. Per patient her ankle pain is worse during the colder weather 02/2023 Prior Visit: Ms. Eric 42-year-old female referred for evaluation of left ankle enthesopathy. Patient reports she had ankle pain and was evaluated by her PCP who took an x-ray and they sent her to Rheumatology for further workup. She also reports left-sided pain to her gluteal muscle. Additionally, a time left lateral thigh to feels numb with a weird pain. It sometimes wakes her up at night and she has to constantly turning to change sides during sleep. The pain travels down from her gluteal muscle to the side of her knees at times. She reports that sometimes her left leg feels weak like it is going to fall out from under her. She takes Aleve that sometimes help but the last 2-3 hours and Tylenol is of no effect Patient denies Raynaud's phenomenon, butterfly rash on face ; denies photosensitivity - getting sick or developing a rash from being out in the sun; denies blood or froth in urine; patient denies hx of SOB, chest pain. Patient denies hx of Carditis or Pleuritis. The patient reports never have had o take aspirin or a blood thinner during the successful pregnancies. Denies fevers, excessive fatigue, unexplained weight-loss or weight-gain, Denies: thinning hair or hair loss Denies: dry, itchy eyes, red burning eyes needing steroids to treat. She does report that she was told she has increased pressure in her high and possible glaucoma in the right. Patient denied dry mouth, mouth sores or ulcers; nose bleed; ringing in the ear, She has abdominal pain to right upper quadrant but workup was unrevealing and she was put on a PPI. Patient has bouts of constipation that can last up to 4 days. However, she denies blood or mucous in stool; nausea, vomiting and diarrhea , difficulty swallowing, heartburn. Colonoscopy 1 year ago at [facility] - no concerns per patient. Denies morning stiffness lasting more than 10 mins. She deines red, warm swollen joints. Denies dactylitis, uveitis, plantar fasciitis, low back pain, elbow tendinitis. [facility] Medical History (Updated 09/04/23 @ 10:48 by Rachel Alejandro, [employer]) Trochanteric bursitis, left hip Piriformis syndrome of left side Left sciatic nerve pain Plantar fasciitis of left foot Psoriasis Enthesopathy of ankle Hyperlipidemia, unspecified Pseudotumor cerebri Iron deficiency anemia due to chronic blood loss Cardiovascular event risk Depressive disorder Asthma Family History Maternal Aunt Hx of autoimmune disorder Mother Arthritis Maternal Grandmother Arthritis Social History Household Members: Significant Other Alcohol intake: current Alcohol intake frequency: holidays/special occasions only Patient Tobacco Use Status: Former Tobacco user Years Smoked: 5 Substance Use Type: Marijuana Current occupational status: unemployed Physical Exam Vital Signs: Last Vital Signs Pulse 73 09/04/23 10:17 BP 138/78 09/04/23 10:17 Pulse Ox 98 09/04/23 10:17 Oxygen Delivery Method Room Air 09/04/23 10:17 BMI result Body Mass Index 36.3 APPEARANCE: Patient in no acute distress; Patient thinks elevated BP due using stairs to come to office. EYES no redness, pupils equal and reactive to light, eyelids normal EARS:? External ear normal, canal clear and tympanic membrane normal. NOSE/SINUS:? Airflow through both nares, no nasal discharge, no bleeding THROAT:? Oral mucosa moist, no ulcerations NECK:? No thyromegaly or masses, no adenopathy, trachea midline. HEART:? Regulrar rhythm, S1-S2 heard, no murmurs, rubs or gallops. LUNG:? Clear to percussion and auscultation ABD:? Normal bowel sounds, no organomegaly, masses or tenderness. EXTREMITIES:? No edema, no calf tenderness, normal peripheral pulses. NEURO:? Oriented and alert x3.? No focal weakness.? Reflexes symmetric.? Gait normal. SKIN:? Hyperpigmentation remains from resolution of scattered small 1 to 2 cm erythematous lesions on bilateral lower legs, largest on left calf with mild scaling that was previous which remains resolved from prior visits. Disfigured fingernail rate 2nd due to injury per patient. Left great toe psoriasis versus fungus. -brittle nails both toes and fingers. No objective signs of Raynaud's phenomenon. JOINT EXAM: Cervical Spine:.? Full range of motion without pain; no tenderness. Thoracic Spine:.? No scoliosis.? No tenderness on palpation. Lumbar Spine:.? Alignment normal.?Reduced range of motion without pain, with tenderness. Chest Wall:.? No tenderness, swelling, increased warmth or erythema. Hands:.? Normal pain-free range of motion without tenderness, swelling, increased warmth or erythema. 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 mild tenderness in MCP grove of left 2nd and 3rd fingers Wrists:.? Normal pain-free range of motion without tenderness, swelling, increased warmth or erythema. Elbows:. Normal pain-free range of motion without tenderness, swelling, increased warmth or erythema. mild tenderness to left lateral epicondyle Shoulders:.?? Full range of motion without pain. No tenderness, weakness, swelling, increased warmth or erythema. Hips:.? Full range of motion without pain. Hip bursa:.?No tenderness to left or right bursa. Left lateral mid Gluteal muscle pin point tenderness has resolved Knees:.?? Normal pain-free range of motion without tenderness, swelling, increased warmth or erythema.? There is no effusion or crepitation Ankles:.? Normal pain-free range of motion without swelling, increased warmth or erythema. Left heel, plantar and achilles tenderness, Feet:.? Normal pain-free range of motion without swelling, increased warmth or erythema. tenderness to dorsum left curer acid drum points:? No tenderness to digital palpation at the occiput, trapezius, second rib, right lateral epicondyle, knees, greater trochanter and gluteal area bilaterally. ? Office Procedures Joint Injection/Drain Joint Injection/Drain Primary Site: other (Left Trochanteric Bursa) Prep: site was prepped using aseptic technique Injected: 40 mg of, Kenalog, with 1 mL of and 1% plain lidocaine Approach Used: posterolateral Procedure: The patient tolerated the procedure well Coding 86839 - Glenohumeral/Tronchanteric Bursa/Intraarticular Procedure code (CPT) selection complete Assessment & Plan Assessment & Plan (1) Enthesopathy of ankle: Code(s): M77.50 - Other enthesopathy of unspecified foot and ankle Category: Medical (2) Psoriasis: Code(s): L40.9 - Psoriasis, unspecified Category: Medical (3) Plantar fasciitis of left foot: Code(s): M72.2 - Plantar fascial fibromatosis Category: Medical (4) Piriformis syndrome of left side: Code(s): G57.02 - Lesion of sciatic nerve, left lower limb Category: Medical (5) Left sciatic nerve pain: Code(s): M54.32 - Sciatica, left side Category: Medical (6) Trochanteric bursitis, left hip: Code(s): M70.62 - Trochanteric bursitis, left hip Category: Medical Plan #Left Ankle Enthesopathy/Psoriasis/PsA: Ms. Eric, 42-year-old female, returns for follow-up of left ankle enthesopathy. Serology was unrevealing (Negative for CCP, RF, HLAB27, ESR, RUSSELL). There was a mild elevation in CRP at 0.87. Though the patient may have symptoms for mild onset of PSA, at this time I do not think there is a need for immunosuppressive therapy. 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 Bilateral Ankle Xray shows small posterior plantar calcaneal spur and moderate size Achilles enthesopathy. She does have tenderness on PE of the left Achilles, none on the right. Patient denies chronic tendinitis and tenderness in other joints, and none observed on PE. Enthisitis a common occurrence in the presence of SPA such as PsA. She denies other signs symptoms of psoriatic arthritis such as uveitis, red warm swollen joints, DIP tenderness, dactylitis and lower back pain. She does endorses IBS. She does have thin nails but no pitting observe. The great left toenail does have look of psoriasis or possible fungal. Nonetheless I do not think she requires empiric treatment at this time. Her psoriasis is being effectively treated with topical hydrocortisone. She has an active referral to Podiatry for further evaluation of her left foot as patient described what could possibly be plantar fasciitis and she does have a heel spur also seen on xray which is painful for her. I anticipate that podiatry can help. At this time I will do think it is necessary to start a systemic immunomdulator. Will continue to monitor for increase in and worsening of symptoms. #Left Sciatic Nerve/Piriformis Muscle: She has an active referral to physical therapy for her left sciatic nerve pain and piriformis muscle pain but did not start. The cortisone injection given at last visit in april seem to have helped so she desires it again. Follow-up in 4 months I have spent 20 minutes reviewing chart, evaluating patient, and documenting. Orders: Orders AMB Joint Injection/Aspiration 09/04/23 M70.62 - Trochanteric bursitis, left hip Coding Level of Care Code Est Pt Level 3 (48279) Complex EM visit Add On G2211 Diagnoses Enthesopathy of ankle M77.50 Psoriasis L40.9 Plantar fasciitis of left foot M72.2 Piriformis syndrome of left side G57.02 Left sciatic nerve pain M54.32 Trochanteric bursitis, left hip M70.62 CPT Codes Coding - Joint 7: 03100 - Glenohumeral/Tronchanteric Bursa/Intraarticular ([id number])
[2023-09-04 10:17] VITALS: BP 138/78; PULSE 73; O2SAT 98; BMI 36.3
== END 2023-09-04 10:47 | disposition home or self-care (01) ==
LOC: HO.RHE 10:07
PROVIDERS: PCP Nurse Practitioner Primary Care; Visit Provider Nurse Practitioner Family
DX: M77.50 Other enthesopathy of unspecified foot and ankle (principal); L40.9 Psoriasis, unspecified; M72.2 Plantar fascial fibromatosis; G57.02 Lesion of sciatic nerve, left lower limb; M54.32 Sciatica, left side; M70.62 Trochanteric bursitis, left hip
CPT/HCPCS: 20610; 99213

== ENCOUNTER → 2023-09-04 10:06 | Outpatient (BNVA) | payer MEDICAID, SELFPAY | PROVIDERS: PCP Nurse Practitioner Primary Care; Visit Provider Nurse Practitioner Family | DX: M77.50 Other enthesopathy of unspecified foot and ankle (principal); M72.2 Plantar fascial fibromatosis; M54.32 Sciatica, left side; M70.62 Trochanteric bursitis, left hip; L40.9 Psoriasis, unspecified; G57.02 Lesion of sciatic nerve, left lower limb | CPT/HCPCS: 20610; 99212 ==

== ENCOUNTER → 2023-10-07 08:00 | Outpatient (BNV) | payer MEDICAID, SELFPAY | PROVIDERS: PCP Nurse Practitioner Primary Care; Visit Provider Radiology Diagnostic Radiology | DX: Z12.31 Encounter for screening mammogram for malignant neoplasm of breast (principal) | CPT/HCPCS: 77063; 77067 ==

== ENCOUNTER 2023-10-07 08:11 | Outpatient (REF) | payer MEDICAID, SELFPAY ==
--- NOTE | ~2023-10-07 | MM_ITS ---
EXAMINATION: MM SCREENING DIGITAL BREAST TOMOSYNTHESIS, BILATERAL CLINICAL INFORMATION: Screening. Asymptomatic. COMPARISON: Mammography: This is a baseline mammogram. TECHNIQUE: Digital breast tomosynthesis is performed in both the craniocaudal and mediolateral oblique views along with computer-aided detection (CAD). Synthesized 2D images are generated from the tomosynthesis. FINDINGS: There are scattered areas of fibroglandular density (ACR BI-RADS breast composition Category b). There are no significant masses, abnormal calcifications, or other abnormalities. MM/MM tomosynthesis screening BI IMPRESSION: No mammographic evidence of malignancy. ASSESSMENT: BI-RADS BI-RADS 1 - Negative RECOMMENDATION: Routine annual mammography screening. 1 year F/U This examination should not preclude the clinical evaluation of a suspicious palpable abnormality. This patient's information was entered into a reminder system with a target due date for their next mammogram.
== END 2023-10-07 08:12 | disposition home or self-care (01) ==
LOC: HO.MAMMO 08:11
PROVIDERS: PCP Nurse Practitioner Primary Care; Visit Provider Nurse Practitioner Primary Care
DX: Z12.31 Encounter for screening mammogram for malignant neoplasm of breast (principal)
CPT/HCPCS: 77063; 77067

== ENCOUNTER 2023-11-07 12:59 | Outpatient (AMB) | payer MEDICAID, SELFPAY ==
--- NOTE | 2023-11-07 13:14 | MHC.OFFVIS ---
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 She has been suffering with this pain for approximately 1.5 years. 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 Pain today is rated as a 5/10, constant and worse in the evenings and at night. Endorses left lower back pain with radiation down the left thigh and groin. Denies radiation of the pain past the knee. Denies shooting, electrical, stabbing pain. Pain is worse with sitting, standing, descending stairs and lying on the left side She has not found anything that improves her pain. Has a referral pending for physical therapy, is waiting to start. Currently taking ibuprofen daily without improvement of her pain. Patient has not been to chiropractor, acupuncture or massage. Currently receiving injections for plantar fasciitis and most recently underwent left GTB injection without improvement of her pain. Denies red flag symptoms including new loss of bowel, bladder or saddle anesthesia. In terms of muscle damage condition is described as spasms, stabbing, sharp, shooting, cramping, squeezing, throbbing. Pain is negatively impacting patient's mood, normal work, relationships with people, sleep and walking. Patient also endorses burning, numbness, tingling of both feet. Endorses family history of neuropathy. Denies past medical history of diabetes. Denies history of peripheral neuropathy diagnosis. [facility] Medical History (Updated 11/07/23 @ 14:28 by Vicenta Martinez, SPECIAL EDUCATION COORDINATOR, HEALTH EDUCATION ASSISTANT) Trochanteric bursitis, left hip Piriformis syndrome of left side Left sciatic nerve pain Plantar fasciitis of left foot Psoriasis Enthesopathy of ankle Hyperlipidemia, unspecified Pseudotumor cerebri Iron deficiency anemia due to chronic blood loss Cardiovascular event risk Depressive disorder Asthma Family History Maternal Aunt Hx of autoimmune disorder Mother Arthritis Maternal Grandmother Arthritis Social History Household Members: Significant Other Alcohol intake: current Alcohol intake frequency: holidays/special occasions only Patient Tobacco Use Status: Former Tobacco user Years Smoked: 5 Substance Use Type: Marijuana Current occupational status: unemployed Review of Systems Const All systems reviewed & are unremarkable except as noted in HPI and below Physical Exam Vital Signs: Last Vital Signs Pulse 59 11/07/23 13:15 BP 124/74 11/07/23 13:15 Pulse Ox 98 11/07/23 13:15 Oxygen Delivery Method Room Air 11/07/23 13:15 BMI result Body Mass Index 36.6 General: awake, alert, oriented. Answers questions appropriately. Fully engaged in examination. Skin: warm, dry, intact HEENT: Normocephalic. Hearing intact. Cardiac: External chest normal in appearance. Respiratory: No cough, audible wheezing or stridor. Abdomen: without gross distension. MS: No obvious swelling or deformities. Able to stand on bilateral tiptoes and bilateral heels.? Able to transition from sit to stand unassisted. Ambulates with bilaterally normal heel strike and toe off Nontender over midline lumbar vertebrae and lumbar paraspinal muscles Tenderness over left PSIS Full lumbar range of motion Facet loading negative DENNIS positive on the left Gaenslen positive in the left Thigh thrust on the left SI compression positive on the left Bilateral lower extremity strength 5/5 SLR negative bilaterally Neurological: Oriented to person, place, time and situation. Thought process intact. No gait abnormalities appreciated. Psychiatric: Appropriate mood and affect. Good judgment and insight. Assessment & Plan Assessment & Plan (1) Sacroiliac joint dysfunction of left side: Code(s): M53.3 - Sacrococcygeal disorders, not elsewhere classified Category: Medical (2) Peripheral neuropathy: Code(s): G62.9 - Polyneuropathy, unspecified Category: Medical Plan Patient presented to the office today for evaluation management of her chronic left lower back pain History, physical exam and provocative testing consistent with left sacroiliac joint dysfunction Continue with plan physical therapy X-ray ordered for further evaluation EMG ordered to evaluate for bilateral peripheral neuropathy. Consider topical capsaicin application, we will discuss further at next visit. Methocarbamol 500 mg p.o. t.i.d.. Patient advised on cautions for use. No driving while taking this medication, do not take with alcohol. All questions and concerns were answered, patient agrees to the plan. Follow up after physical therapy, sooner if needed Orders: Orders XR hip LT w PEL1V Today M53.3 - Sacrococcygeal disorders, not elsewhere classified NE electromyogram (EMG) Today G62.9 - Polyneuropathy, unspecified Medications: New methocarbamol No driving while taking this medication. 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
[2023-11-07 13:15] VITALS: BP 124/74; PULSE 59; O2SAT 98; BMI 36.6
== END 2023-11-07 14:13 | disposition home or self-care (01) ==
PROVIDERS: PCP Nurse Practitioner Primary Care; Visit Provider Registered Nurse Emergency
DX: M53.3 Sacrococcygeal disorders, not elsewhere classified (principal); G62.9 Polyneuropathy, unspecified
CPT/HCPCS: 99204

== ENCOUNTER → 2023-11-07 12:59 | Outpatient (BNVA) | payer MEDICAID, SELFPAY | PROVIDERS: PCP Nurse Practitioner Primary Care; Visit Provider Registered Nurse Emergency | DX: M53.3 Sacrococcygeal disorders, not elsewhere classified (principal); G62.9 Polyneuropathy, unspecified | CPT/HCPCS: 99212 ==

== ENCOUNTER 2023-11-18 10:27 | Outpatient (REF) | payer MEDICAID, SELFPAY ==
--- NOTE | ~2023-11-18 | XR_ITS ---
EXAMINATION: XR HIP, LEFT CLINICAL INFORMATION: Sacrococcygeal disorder COMPARISON: None available. TECHNIQUE: Single view the pelvis 2 views of the left hip FINDINGS: No acute visible fracture or dislocation. Joint spaces and alignment are maintained. Soft tissues are unremarkable. Visualized bowel gas is unremarkable. XR/XR hip LT w PEL1V IMPRESSION: No acute visible fracture or dislocation.
[2023-11-18 10:39] LABS: MANUAL DIFF FLAG NO
[2023-11-18 11:31] LABS: Basophils Percent Auto 0.5 % (0-2); Eosinophils Absolute Auto 0.1 X10*3/uL (0.0-0.4); Eosinophils Percent Auto 1.5 % (0-4); Hematocrit 34.7 % (37.0-47.0); Imm Gran Abs Auto 0.08 X10*3/uL (0.00-0.03); Lymphocytes Absolute Auto 2.4 X10*3/uL (1.2-4.9); Lymphocytes Percent Auto 30.1 % (20-40); Mean Corpuscular HGB Conc 31.7 g/dl (31.0-35.0); Mean Corpuscular Hemoglobin 27.3 pg (27.0-33.0); Mean Corpuscular Volume 86.1 fL (80.0-98.0); Mean Platelet Volume 9.2 fL (9.4-12.3); Monocytes Absolute Auto 0.6 X10*3/uL (0.1-1.2); Monocytes Percent Auto 7.6 % (2-11); Neutrophils Absolute Auto 4.8 x10*3/uL (2.0-8.3); Neutrophils Percent Auto 59.3 % (45-73); Platelet Count 251 X10*3/uL (160-400); Red Blood Count 4.03 X10*6/uL (4.20-5.50); Red Cell Distribution Width 17.9 % (11.0-16.0)
[2023-11-18 12:08] LABS: Anion Gap 13 (12-20); Blood Urea Nitrogen 13 mg/dL (9-16); C Reactive Protein 0.73 mg/dL (< or = 0.50); Calcium 9.6 mg/dL (8.4-10.2); Carbon Dioxide 23 mmol/L (22-29); Chloride 109 mmol/L (96-108); Cholesterol 227 mg/dL (<200); Estimated Glomerular Filt Rate > 60; Glucose Random 109 mg/dL (60-115); HDL Cholesterol 47 mg/dL (>40); LDL Cholesterol Calculated 146 mg/dL (<100); Potassium 3.8 mmol/L (3.3-5.1); Sodium 141 mmol/L (135-145); Triglycerides 172 mg/dL (<150)
[2023-11-18 12:19] LABS: Estimated Average Glucose 103 mg/dL; Hemoglobin A1c % 5.2 % (<6.0)
[2023-11-18 12:41] LABS: Vitamin B12 354 pg/mL (200-900)
== END 2023-11-18 10:28 | disposition home or self-care (01) ==
LOC: HO.XRAY 10:27
PROVIDERS: Absent Provider Nurse Practitioner Primary Care; PCP Nurse Practitioner Primary Care; Visit Provider Registered Nurse Emergency
DX: R20.0 Anesthesia of skin (principal); R20.2 Paresthesia of skin; D50.0 Iron deficiency anemia secondary to blood loss (chronic); R73.01 Impaired fasting glucose; E78.5 Hyperlipidemia, unspecified; R79.82 Elevated C-reactive protein (CRP); M53.3 Sacrococcygeal disorders, not elsewhere classified
CPT/HCPCS: 36415; 73502; 80048; 80061; 82607; 83036; 85025; 86140

== ENCOUNTER 2023-11-24 18:06 | Outpatient (REF) | payer MEDICAID, SELFPAY ==
[2023-11-25 05:22] LABS: CT PCR NOT DETECTED (Not Detect.); NG PCR NOT DETECTED (Not Detect.)
== END 2023-11-24 18:07 | disposition home or self-care (01) ==
LOC: HO.HHCLNP 18:06
PROVIDERS: Visit Provider Advanced Practice Midwife
DX: N76.0 Acute vaginitis (principal)
CPT/HCPCS: 87491; 87591

== ENCOUNTER 2023-11-28 08:44 | Outpatient (REF) | payer MEDICAID, SELFPAY ==
--- NOTE | 2023-11-28 09:00 | EMG_ITS ---
Chief complaint: Left worse than right leg pain Reason for referral: Evaluate for peripheral neuropathy Referred by: Vicenta Martinez NP Procedure done: Bilateral lower extremity NCS/EMG Precautions and/or limitations: None The limb temperature was monitored continuously and remained between 32-36 degrees C during the performance of the NCS. Nerve Conduction Studies Anti Sensory Summary Table ?Stim Site NR Onset (ms) Norm Onset (ms) Peak (ms) Norm Peak (ms) O-P Amp (?V) Norm O-P Amp Site1 Site2 Delta-0 (ms) Dist (cm) Jadon (m/s) Norm Jadon (m/s) Left Sural Anti Sensory (Lat Mall) Calf ? 2.5 3.0 <4.0 19.2 >5.0 Calf Lat Mall 2.5 14.0 56 Right Sural Anti Sensory (Lat Mall) Calf ? 2.4 3.1 <4.0 9.5 >5.0 Calf Lat Mall 2.4 14.0 58 Motor Summary Table ?Stim Site NR Onset (ms) Norm Onset (ms) O-P Amp (mV) Norm O-P Amp iAmp (mV) Amp (1st) (%) Site1 Site2 Delta-0 (ms) Dist (cm) Jadon (m/s) Norm Jadon (m/s) Right Peroneal Motor (Ext Dig Brev) Ankle ? 3.4 <4.0 4.9 >2.5 6.4 100.0 Ankle Ext Dig Brev 3.4 0.0 B Fib ? 9.7 5.2 6.9 106.1 B Fib Ankle 6.3 32.0 51 >40 Poplt ? 10.5 5.4 6.9 110.2 Poplt B Fib 0.8 6.0 75 >40 Left Tibial Motor (Abd Botello Brev) Ankle ? 3.5 <5 13.1 >2.5 18.1 100.0 Ankle Abd Botello Brev 3.5 0.0 Knee ? 11.3 9.4 13.2 71.8 Knee Ankle 7.8 37.0 47 >40 Right Tibial Motor (Abd Botello Brev) Ankle ? 3.4 <5 10.1 >2.5 16.5 100.0 Ankle Abd Botello Brev 3.4 0.0 Knee ? 11.5 5.2 8.3 51.5 Knee Ankle 8.1 38.0 47 >40 EMG ?Side Muscle Nerve Root Ins Act Fibs Psw Amp Dur Poly Recrt Int Pat Comment Right AbdHallucis MedPlantar S1-2 Nml Nml Nml Nml Nml 0 Nml Complete Right AntTibialis Dp Br Peron L4-5 Nml Nml Nml Nml Nml 0 Nml Complete Right PostTibialis Tibial L5, S1 Nml Nml Nml Nml Nml 0 Nml Complete Right MedGastroc Tibial S1-2 Nml Nml Nml Nml Nml 0 Nml Complete Right VastusMed Femoral L2-4 Nml Nml Nml Nml Nml 0 Nml Complete Left AbdHallucis MedPlantar S1-2 Nml Nml Nml Nml Nml 0 Nml Complete Left AntTibialis Dp Br Peron L4-5 Nml Nml Nml Nml Nml 0 Nml Complete Left PostTibialis Tibial L5, S1 Nml Nml Nml Nml Nml 0 Nml Complete Left MedGastroc Tibial S1-2 Nml Nml Nml Nml Nml 0 Nml Complete Left VastusMed Femoral L2-4 Nml Nml Nml Nml Nml 0 Nml Complete FINDINGS: All motor and sensory nerves tested showed normal latencies, amplitudes and conduction velocities. Concentric needle EMG was performed in selected muscles of the bilateral lower extremity. Study did not reveal signs of electric abnormalities as shown in the table above. IMPRESSION: 1. This is a normal study. 2. There is no electrodiagnostic evidence for peroneal neuropathy, tibial neuropathy, lumbosacral plexopathy, lumbar radiculopathy, or peripheral neuropathy. Thank you for your kind referral. Ina Bucio MD, CANDELAR[place] Board Certified, [place] [employer] and [employer] (ABPMR) Board Certified, [place] Board of Electrodiagnostic Medicine (ABEM) CODIN [id number] x 2 MTDD
== END 2023-11-28 08:45 | disposition home or self-care (01) ==
LOC: HO.NEURO 08:44
PROVIDERS: PCP Nurse Practitioner Primary Care; Visit Provider Registered Nurse Emergency
DX: G62.9 Polyneuropathy, unspecified (principal)
CPT/HCPCS: 95886; 95909

== ENCOUNTER → 2023-11-28 09:00 | Outpatient (BNV) | payer MEDICAID, SELFPAY | PROVIDERS: PCP Nurse Practitioner Primary Care; Visit Provider Physical Medicine & Rehabilitation | DX: M79.604 Pain in right leg (principal); M79.605 Pain in left leg | CPT/HCPCS: 95886; 95909 ==

== ENCOUNTER 2024-04-01 11:17 | Outpatient (REF) | payer MEDICAID, SELFPAY ==
--- NOTE | ~2024-04-01 | MM_ITS ---
EXAMINATION: MM DIAGNOSTIC DIGITAL BREAST TOMOSYNTHESIS, LEFT Limited left breast ultrasound. CLINICAL INFORMATION: Left palpable lump. COMPARISON: Mammography: Comparison is made with available prior examinations. TECHNIQUE: Digital breast tomosynthesis is performed in both the craniocaudal and mediolateral oblique views along with computer-aided detection (CAD). Synthesized 2D images are generated from the tomosynthesis. Left Limited ultrasound. FINDINGS: The breasts are heterogeneously dense, which may obscure small masses (ACR BI-RADS breast composition Category c). BB marker in the upper central breast with an underlying circumscribed oval mass measuring up to 2 cm. No suspicious calcifications or other abnormal findings. Targeted color Doppler left breast ultrasound scanning in the superior breast area of patient's palpable lump from 10-2 o'clock demonstrates a simple cyst at 11:00 7 cm from the nipple measuring 20 x 15 x 19 mm correlating with the patient's palpable lump and is benign. There is a simple cyst at 11:00 7 cm from the nipple measuring 8 x 5 x 8 mm. MM/MM tomosynthesis diagnostic LT IMPRESSION: Simple cysts correlating with patient's palpable lump. Benign. Discussion with the patient that if she has persistent and increasing pain in this area this cyst is amenable to aspiration for pain relief. ASSESSMENT: BI-RADS BI-RADS 2 - Benign Findings RECOMMENDATION: 1 year F/U Results were provided to the patient at time of visit by the technologist. This patient's information was entered into a reminder system with a target due date for their next mammogram. Electronically signed by: Lluvia Carpio DO 04/01/2024 12:15 PM [facility]IR[facility] PIRES
== END 2024-04-01 11:18 | disposition home or self-care (01) ==
LOC: HO.MAMMO 11:17
PROVIDERS: PCP Nurse Practitioner Primary Care; Visit Provider Advanced Practice Midwife
DX: N63.22 Unspecified lump in the left breast, upper inner quadrant (principal)
CPT/HCPCS: 76642; 77061; 77065

== ENCOUNTER → 2024-04-01 12:00 | Outpatient (BNV) | payer MEDICAID, SELFPAY | PROVIDERS: PCP Nurse Practitioner Primary Care; Visit Provider Internal Medicine | DX: N60.02 Solitary cyst of left breast (principal); R92.332 Mammographic heterogeneous density, left breast | CPT/HCPCS: 76642; 77061; 77065 ==

== ENCOUNTER 2024-08-09 14:01 | Outpatient (REF) | payer MEDICAID, SELFPAY ==
--- OUTSIDE RECORDS SUMMARY | 2024-08-09 16:18 | XMS_ITS | Clinical Summary ---
Author Organization [facility] Address [address] [place] [address] Phone Care Team Providers Care Preparation Plant Supervisor Name Role Phone Genna Snow NP Primary Care Provider [phone] Allergies No known active allergies Medications ibuprofen (ADVIL,MOTRIN) 800 mg tablet Take 1 Tab by mouth every 8 hours as needed for Pain. 7 Active ondansetron ODT (ZOFRAN-ODT) 4 mg disintegrating tablet Take 4 mg by mouth every 8 hours as needed. Active albuterol HFA (PROAIR HFA ; PROVENTIL HFA ; VENTOLIN HFA) 90 mcg/actuation inhaler Inhale 2 Puffs into the lungs 4 times daily as needed for Cough, Wheezing or Shortness of Breath. 7 Active Symbicort 160-4.5 mcg/actuation inhaler PLEASE SEE ATTACHED FOR DETAILED DIRECTIONS Active cholecalciferol (VITAMIN D-3) 25 mcg (1,000 unit) tablet Take 1 tablet (1,000 Units total) by mouth daily. 2 Active methocarbamoL (ROBAXIN) 750 mg tablet Take 1 tablet (750 mg total) by mouth every 6 hours. 3 Active meclizine (ANTIVERT) 25 mg tablet Take 1 tablet (25 mg total) by mouth 3 times daily as needed. 2 Active PARoxetine (PAXIL) 20 mg tablet Take 1 tablet (20 mg total) by mouth 1 (one) time each day in the morning. Active omeprazole (PriLOSEC) [address] capsule Take 1 capsule (20 mg total) by mouth. Active tirzepatide, weight loss, (Zepbound) 2.5 mg/0.5 mL injection Inject 0.5 mL (2.5 mg total) under the skin every 7 (seven) days. Active Active Problems Problem Noted Date Diagnosed Date Iron deficiency anemia due to chronic blood loss 02/27/2022 Ureteral stone 08/29/2016 Overview (02/23/2024): Seeing urology Bipolar disorder ([facility] V24, [facility] V28) 07/28 Gestational diabetes mellitus 08/23/2014 Encounters Date Type Department Care Team Description 06/15/2024 10:30 AM EST Office Visit [facility] Hematology Oncology [address] [place] [address] Earnestine Beltran PA Iron deficiency anemia due to chronic blood loss (Primary Dx); Menorrhagia with irregular cycle 06/10/2024 Telephone [facility] Hematology Oncology [address] [place] [address] Savannah Rangel DO from Last 3 Months Immunizations Name Administration Dates Next Due PPD Test 08/23/2014 Pfizer (ages 12 & older) MALLY S-CoV-2 COVID-19, mRNA, LNP-S, ld-sucrose, preservative free 10/17/2021 Pfizer SARS-CoV-2 COVID-19, mRNA, LNP-S, preservative free 04/25/2021,04/04/2021 Tdap Tetanus diptheria acell ular pertussis (Boostrix; Adacel) 7yo and older 08/23/2014 Surgical History Surgery Date Site/Laterality Comments HYSTERECTOMY PROCEDURE:HYSTERECTOMY KIDNEY STONE SURGERY PROCEDURE:KIDNEY STONE SURGERY COLONOSCOPY PROCEDURE:COLONOSCOPY Medical History Medical History Date Comments Anemia DX:Anemia Family History Relation Name Status Comments Father Mother Alive Social History Tobacco Use Types Packs/Day Years Used Date Smoking Tobacco: Never Smokeless Tobacco: Never Tobacco Cessation:Counseling Given: Not Answered Alcohol Use Standard Drinks/Week Comments Yes 1 (1 standard drink = 0.6 oz pur e alcohol) Comments Unknown Sex and Gender Information Value Date Recorded Sex Assigned at Not on file Legal Sex Female 9:59 AM EST Gender Identity Not on file Sexual Orientation Not on file Obstetrics History Last Filed Vital Signs Vital Sign Reading Time Taken Comments Blood Pressure 108/58 06/15/2024 10:36 AM EST Pulse 68 06/15/2024 10:36 AM EST Temperature 36.7 ??C (98 ??F) 06/15/2024 10:36 AM EST Respiratory Rate - - Oxygen Saturation 100% 06/15/2024 10:36 AM EST Inhaled Oxygen Concentration - - Weight 101 kg (222 lb) 06/15/2024 10:36 AM EST Height 165.1 cm (5' 5 ) 03/12/2024 1:59 PM EST Body Mass Index 36.94 03/12/2024 1:59 PM EST Plan of Treatment Upcoming Encounters Date Type Department Care Team (Late st Contact Info) Description 08/11/2024 9:30 AM EDT Consult Orthopedic Surgery - [place] [address] [phone] Jacob Lim, DPM [address] [address] 09/13/2024 10:30 AM EDT Office Visit [facility] Hematology Oncology [address] [place] [phone] Savannah Rangel, DO [address] [place] [address] Health Maintenance Due Date Last Done Comments Hepatitis B Vaccines (1 of 3 - 19+ 3-dose series) 07/03/1999 Social Influencers of Health Screening 04/10/2022 HPV Vaccines (2 - Risk 3-dose SCDM series) 12/16/2023 11/18/2023 COVID-19 Vaccine ( season) 2023 02/27/2022, 10/17/2021, 04/25/2021, Additional history exists DTaP,Tdap,and Td Vaccines (2 - Td or Tdap) 08/23/2024 08/23/2014 Depression Screening 12/15/2024 12/16/2023 Breast Cancer Screening 10/06/2025 10/07/2023 Cervical Cancer Screening: Pap Smear 04/22/2027 04/22/2024, 09/23/2014, 09/23/2014 Cholesterol Screening (Lipid Panel) 11/17/2028 11/18/2023, 07/03/2016 Hepatitis C Screening Completed 12/21/2015 HIV Screening Completed 08/20/2021, 12/21/2015 Pneumococcal Vaccine: Pediatrics (0 to 5 Years) and At-Risk Patients (6 to 64 Years) Completed 11/18/2023 Influenza Vaccine Completed 05/11/2024, , 03/26/2021, Additional history exists HIB Vaccines Aged Out No longer eligi ble based on patient's age to complete this topic Hepatitis A Vaccines Aged Out No long er eligible based on patient's age to complete this topic IPV Vaccines Aged Out No longer eligi ble based on patient's age to complete this topic MMR Vaccines Aged Out No longer eligi ble based on patient's age to complete this topic Meningococcal ACWY Vaccine Aged Out N o longer eligible based on patient's age to complete this topic Meningococcal B Vaccine Aged Out No l onger eligible based on patient's age to complete this topic RSV Immunization Patients Under 20 months Aged Out No longer eligible based on patient's age to complete this topic Varicella Vaccines Aged Out No longer eligible based on patient's age to complete this topic Procedures Procedure Name Priority Date/Time Associated Diagnosis Comments CBC WITH AUTO DIFFERENTIAL Routine 06/11/2024 8:14 AM EST Iron deficiency anemia due to chronic blood loss FERRITIN Routine 06/11/2024 8:14 AM EST Iron deficiency anemia due to chronic blood loss IRON AND TIBC Routine 06/11/2024 8:14 AM EST Iron deficiency anemia due to chronic blood loss CBC AND DIFFERENTIAL Routine 06/11/2024 8:14 AM EST Iron deficiency anemia due to chronic blood loss PAP SMEAR Routine 04/22/2024 12:00 AM EST Unspecified abnormal cytological findings in specimens from cervix uteri MG MAMMO DIGITAL SCREENING W TORIBIO BILAT Routine 10/07/2023 8:37 AM EDT LIPID PANEL Routine 07/03/2016 HEPATITIS C SCREENING Routine 12/21/2015 HIV SCREENING Routine 12/21/2015 from Last 3 Months or Most Recently Relevant to Health Maintenance Results * (ABNORMAL) CBC auto differential (06/11/2024 8:14 AM EST) WBC 8.0 4.8 - 10.8 K/mcL LAB HEMETOLOGY METHOD 06/11/2024 11:26 AM [facility] RBC 4.50 3.80 - 4.80 M/mcL LAB HEMETOLOGY METHOD 06/11/2024 11:26 AM [facility] Hemoglobin 12.6 11.5 - 16.0 g/dL LAB HEMETOLOGY METHOD 06/11/2024 11:26 AM [facility] Hematocrit 39.7 35.0 - 47.0 % LAB HEMETOLOGY METHOD 06/11/2024 11:26 AM [facility] MCV 88.8 79.0 - 98.0 FL LAB HEMETOLOGY METHOD 06/11/2024 11:26 AM [facility] MCH 28.2 27.0 - 32.0 pcg LAB HEMETOLOGY METHOD 06/11/2024 11:26 AM [facility] MCHC 31.7(L) 32.0 - 37.0 g/dL LAB HEMETOLOGY METHOD 06/11/2024 11:26 AM [facility] RDW 13.8 11.0 - 15.0 % LAB HEMETOLOGY METHOD 06/11/2024 11:26 AM [facility] Platelets 241 130 - 400 K/mcL LAB HEMETOLOGY METHOD 06/11/2024 11:26 AM [facility] MPV 9.6 7.0 - 11.0 FL LAB HEMETOLOGY METHOD 06/11/2024 11:26 AM [facility] NRBC 0.0 <1.0 % LAB HEMETOLOGY METHOD 06/11/2024 11:26 AM [facility] NRBC Absolute 0.00 <0.10 K/mcL LAB HEMETOLOGY METHOD 06/11/2024 11:26 AM [facility] Neutrophils Relative 60.6 % LAB HEMETOLOGY METHOD 06/11/2024 11:26 AM [facility] Lymphocytes Relative 30.0 % LAB HEMETOLOGY METHOD 06/11/2024 11:26 AM [facility] Monocytes Relative 7.4 % LAB HEMETOLOGY METHOD 06/11/2024 11:26 AM [facility] Eosinophils Relative 1.3 % LAB HEMETOLOGY METHOD 06/11/2024 11:26 AM [facility] Basophils Relative 0.3 % LAB HEMETOLOGY METHOD 06/11/2024 11:26 AM [facility] Immature Granulocytes Relative 0.4 % LAB HEMETOLOGY METHOD 06/11/2024 11:26 AM [facility] Neutrophils Absolute 4.86 1.50 - 7.00 K/mcL LAB HEMETOLOGY METHOD 06/11/2024 11:26 AM [facility] Lymphocytes Absolute 2.40 1.00 - 5.00 K/mcL LAB HEMETOLOGY METHOD 06/11/2024 11:26 AM [facility] Monocytes Absolute 0.59 0.20 - 1.00 K/mcL LAB HEMETOLOGY METHOD 06/11/2024 11:26 AM [facility] Eosinophils Absolute 0.10 0.00 - 0.50 K/mcL LAB HEMETOLOGY METHOD 06/11/2024 11:26 AM EST [facility] Basophils Absolute 0.02 0.00 - 0.20 K/[facility] LAB HEMETOLOGY METHOD 06/11/2024 11:26 AM EST [facility] Immature Granulocytes Absolute 0.03 0.00 - 0.03 K/mcL LAB HEMETOLOGY METHOD 06/11/2024 11:26 AM EST [facility] Blood Venous blood specimen / Unknown Venipuncture / Unknown 06/11/2024 8:14 AM EST 06/11/2024 11:10 AM EST Savannah Rangel DO LAB BLOOD ORDERABLES Final Result Performing Organization Address City/[facility]/ZIP Co de Phone Number [facility] [address] [place] [address], [place] [phone] * (ABNORMAL) Iron and TIBC (06/11/2024 8:14 AM EST) [facility] Iron 44 40 - 150 mcg/dL LAB CHEMISTRY METHOD 06/11/2024 11:35 AM EST [facility] TIBC 315 250 - 450 mcg/dL LAB CHEMISTRY METHOD 06/11/2024 11:35 AM [facility] Iron Saturation 14(L) 15 - 50 % LAB CHEMISTRY METHOD 06/11/2024 11:35 AM [facility] Blood Venous blood specimen / Unknown Venipuncture / Unknown 06/11/2024 8:14 AM EST 06/11/2024 11:10 AM EST Savannah Rangel DO LAB BLOOD ORDERABLES Final Result Performing Organization Address [facility]/ZIP Co de Phone Number [facility] [address] [place] [address], [place] [phone] * Ferritin (06/11/2024 8:14 AM EST) Ferritin 22 8 - 252 ng/mL LAB CHEMISTRY METHOD 06/11/2024 11:35 AM EST [facility] Blood Venous blood specimen / Unknown Venipuncture / Unknown 06/11/2024 8:14 AM EST 06/11/2024 11:10 AM EST us Savannah Brito Juan Carlos DO LAB BLOOD ORDERABLES Final Result [facility] [address] [place] [address], * Pap smear (04/22/2024 12:00 AM EST) Pathologist [facility] Interpretation Negative for intraepithelial lesion or malignancy 04/26/2024 4:26 PM [facility] General Categorization Negative 04/26/2024 4:26 PM [facility] Other Findings Shift in ramin suggestive of bacterial vaginosis 04/26/2024 4:26 PM [facility] Specimen Adequacy Satisfactory for evaluation, endocervical/valente sformation zone component absent 04/26/2024 4:26 PM [facility] Pap Methodology Liquid Based Pap Test 04/26/2024 4:26 PM [facility] Disclaimer The Pap test is a screening test which carries an inherent false negative rate. These test results should be correlated with the patient's clinical findings and history. This Pap test was processed using an automated screening system. Technical cytopathology services provided by [facility], at [address] [place] [id number] (CLIA # [id number]/Penny Ozuna MD, Form Layer.) 04/26/2024 4:26 PM [facility] Console Pap Interpretation Reported 04/26/2024 4:26 PM [facility] Brushing/Spatula Cervix uteri structure / Unknown 04/22/2024 04/23/2024 7:04 AM EST Bertha Grewal MD LAB CYTOLOGY ORDERABLES Final Result [facility] ([facility]) [facility] [address] [place] [address], * MG Mammo Digital Screening w Toribio bilat (10/07/2023 8:37 AM EDT) Anatomical Region Laterality Modality Breast Bilateral Mammography Genna Snow NP IMG BI PROCEDURES Final Result * (ABNORMAL) Lipid panel (07/03/2016) Pathologist [facility] LDL/HDL Ratio 5(A) 0 - 4 Triglycerides 165(A) 0 - 150 mg/dL Cholesterol 252(A) 0 - 200 mg/dL HDL 46 >=40 mg/dL LDL Cholesterol 173(A) 0 - 100 mg/dL Blood Venous blood specimen / Unknown Result [facility] Historical Provider LAB BLOOD ORDERABLES Shelli l Result * HIV Screening (12/21/2015) Pathologist [facility] HIV Screening Abstracted Result [facility] Historical Provider HEALTH MAINTENANCE Final Result * Hepatitis C Screening (12/21/2015) [facility] Hepatitis C Screening Abstracted Historical Provider HEALTH MAINTENANCE Final Result from Last 3 Months or Most Recently Relevant to Health Maintenance Insurance MEDICAID - [place] Care Teams Preparation Plant Supervisor Relationship Specialty Start Date End Date Genna Snow NP [address] [place] [phone] PCP - General 01/30/22
--- OUTSIDE RECORDS SUMMARY | 2024-08-09 16:18 | XMS_ITS | Encounter Summary ---
Author Organization [employer] Address [address] [place] [address] Care Team Providers Care Factory Supervisor Name Role Phone Genna Snow Primary Care Provider [phone] Reason for Visit * Reason Comments Med Refill Encounter Details Date Type Department Care Team ([facility] st Contact Info) Description 06/17/2024 Refill [facility] [address] [place], [place] [phone] Genna Snow ANP [address] [place] [address] Class 2 obesity with body mass index (BMI) of 38.0 to 38.9 in adult, unspecified obesity type, unspecified whether serious comorbidity present Social History Tobacco Use Types Packs/Day Years Used Date Smoking Tobacco: Never Passive Smoke Exposure: Never Smokeless Tobacco: Never Alcohol Use Standard Drinks/Week Comments Not Currently 0 (1 standard drink = 0.6 oz pur e alcohol) Depression Answer Date Recorded Patient Health Questionnaire-9 Score 12/16/2023 Patient Health Questionnaire-9 Score 12/16/2023 Last PHQ-9: Questionnaire Data Not on file 0 12/16/2023 Housing Stability Answer Date Recorded What is your housing situation today? I have keny sepulveda 02/03/[address] you li ve. Do you have problems with any of the following? Mold 02/03/2023 Food Insecurity Answer Date Recorded Within the past 12 months, y ou worried that your food would run out before you got money to buy more: Sometimes True 2022 Within the past 12 months,th e food you bought just didn't last and you didn't have enough money to get more: Sometimes True 02/13/2023 Transportation Answer Date Recorded In the past 12 months, has l ack of transportation kept you from medical appts, meetings, work or from getting things needed for daily living? No 02/13/2023 Utilities Answer Date Recorded In the past 12 months, has t he electric, gas, oil or water company threatened to shut off services in your home? Already shut Off 02/03/2023 Depression Answer Date Recorded Patient Health Questionnaire-2 Score 5 12/16/2023 Comments Unknown Sex and Gender Information Value Date Recorded Sex Assigned at Female 02/25/2022 10:15 AM EDT Legal Sex Female 10:15 AM EDT Gender Identity Female 02/25/2022 10:15 AM EDT Sexual Orientation Choose not to disclose 2021 10:15 AM EDT documented as of this encounter Plan of Treatment Upcoming Encounters Date Type Department Care Team (Late st Contact Info) Description 11/19/2024 11:15 AM EDT Office Visit [facility] [address] [place] [phone] Genna Snow ANP [address] [place] [address] documented as of this encounter Visit Diagnoses Diagnosis Class 2 obesity with body mass index (BMI) of 38.0 to 38.9 in adult, unspecified obesity type, unspecified whether serious comorbidity present documented in this encounter Additional Health Concerns Assessment Noted Time PHQ-9 Depression Total Score: 19 024 12:50 PM EDT documented as of this encounter Care Teams Factory Supervisor Relationship Specialty Start Date End Date Genna Snow ANP [address] [place] [phone] PCP - General Family Medicine 03/26/21 Daniela Joy RN Care Manager 01/22/23 Jeramie Damon Field DirectorHeat Transfer Technician 10/28/23 documented as of this encounter
--- OUTSIDE RECORDS SUMMARY | 2024-08-09 16:18 | XMS_ITS | Encounter Summary ---
Author Organization [employer] Address [address] [facility] [address] [place] [address] Care Team Providers Care Outside Rigger Name Role Phone Genna Snow Primary Care Provider [phone] Encounter Details Date Type Department Care Team (Late st Contact Info) Description 03/10/2023 Abstract [facility] [address] [place], [place] [phone] Genna Snow ANP [address] [place] [address] Social History Tobacco Use Types Packs/Day Years Used Date Smoking Tobacco: Never Passive Smoke Exposure: Never Smokeless Tobacco: Never Alcohol Use Standard Drinks/Week Comments Not Currently 0 (1 standard drink = 0.6 oz pur e alcohol) Housing Stability Answer Date Recorded What is [...] in your home? Already shut Off 02/03/2023 Comments Unknown Sex and Gender Information Value [...] Description 11/19/2024 11:15 AM EDT Office Visit [facility] [address] [place] [address] Genna Snow ANP [address] [place] [address] documented as of this encounter Visit Diagnoses Not on filedocumented in this encounter Care Teams Outside Rigger Relationship Specialty Start Date End Date Genna Snow ANP [address] [place] [phone] PCP - General Family Medicine 03/26/21 Daniela Joy cloth shrinking machine operator helper 01/22/23 Jeramie Damon Grommet Machine OperatorCar Deliverer 10/28/23 documented as of this encounter
--- OUTSIDE RECORDS SUMMARY | 2024-08-09 16:18 | XMS_ITS | Encounter Summary ---
Author Organization [employer] Address [address] [facility] [address] [place] [address] Care Team Providers Care Retail Performance Specialist Name Role Phone Genna Snow Primary Care Provider [phone] Reason for Visit * Reason Onset Date Comments Nurse Triage 03/29/2024 Encounter Details Date Type Department Care Team ([facility] st Contact Info) Description 03/29/2024 Telephone [facility] [address] [place], [place] [phone] Genna Snow ANP [address] [place] [address] Nurse Triage Social History Tobacco Use Types Packs/Day Years Used Date Smoking Tobacco: Never Passive Smoke Exposure: Never Smokeless Tobacco: Never Alcohol Use Standard Drinks/Week Comments Not Currently 0 (1 standard drink = 0.6 oz pur e alcohol) Depression Answer Date Recorded Patient Health Questionnaire-9 Score 19 12/16/2023 Patient Health Questionnaire-9 Score 19 12/16/2023 Last PHQ-9: Questionnaire Data Not on [...] AM EDT documented as of this encounter Miscellaneous Notes * Telephone Encounter - Christin Perez RN - 03/29/2024 12:55 PM EST Triage call Pt reports breast lump on the top of left breast. Pt reports it is larger than a marble and getting bigger. Pt reports non painful and shape of left breast is different from right. Pt requests to see provider today. Advised to come to [facility] today open till 8pm. Pt agrees with disposition and insurance is verified as active. Protocol Used: Breast Symptoms (Adult) Protocol-Based Disposition: See in Office or Video Visit within 3 Days Positive Triage Questions: * Breast lump * Patient wants to be seen * All higher-acuity triage questions were negative Care Advice Discussed: * Reasons To Call Back - You feel a lump - Nipple discharge occurs - Change in appearance of breast - You have more questions - You become worse * Telephone Encounter - Daniele Ballard - 03/29/2024 12:12 PM EST Symptom: Breast Symptoms / non-painful lump on breast Outcome: Schedule an appointment to be seen within 24 hours Reason: Caller denied all higher acuity questions The caller accepted this outcome. documented in this encounter Plan of Treatment Upcoming Encounters Date Type Department Care Team (Late st Contact Info) Description 11/19/2024 11:15 AM EDT Office Visit [facility] [address] [place] [phone] Genna Snow ANP [address] [place] [address] documented as of this encounter Visit Diagnoses Not on filedocumented in this encounter Additional Health Concerns Assessment Noted Time PHQ-9 Depression Total Score: 19 024 12:50 PM EDT documented as of this encounter Care Teams Retail Performance Specialist Relationship Specialty Start Date End Date Genna Snow ANP [address] [place] [address] PCP - General Family Medicine 03/26/21 Daniela Joy RN Care Manager 01/22/23 Jeramie Damon Social Welfare AdministratorMechanical Process Engineer 10/28/23 documented as of this encounter
--- OUTSIDE RECORDS SUMMARY | 2024-08-09 16:18 | XMS_ITS | Encounter Summary ---
Author Organization [employer] Address [address] [facility] 7[address] [place] [address] Care Team Providers Care Coil Winding Supervisor Name Role Phone Genna Snow Primary Care Provider [phone] Reason for Visit * Reason Comments Med Refill Encounter Details Date Type Department Care Team ([facility] st Contact Info) Description 06/19/2024 Refill [facility] [address] [place], [place] [phone] Genna Snow ANP [address] [place] [address] Class 2 obesity with body mass index [...] Description 11/19/2024 11:15 AM EDT Office Visit [facility] [address] [place] [phone] Genna Snow ANP [address] [place] [address] documented as of this encounter Visit Diagnoses Diagnosis Class 2 obesity with body mass index (BMI) of 38.0 to 38.9 in adult, unspecified obesity type, unspecified whether serious comorbidity present documented in this encounter Additional Health Concerns Assessment Noted Time PHQ-9 Depression Total Score: 19 024 12:50 PM EDT documented as of this encounter Care Teams Coil Winding Supervisor Relationship Specialty Start Date End Date Genna Snow ANP [address] [place] [phone] PCP - General Family Medicine 03/26/21 Daniela Joy RN Care Manager 01/22/23 Jeramie Damon Double End Tenoner SetterTruck Dispatcher 10/28/23 documented as of this encounter
--- OUTSIDE RECORDS SUMMARY | 2024-08-09 16:18 | XMS_ITS | Encounter Summary ---
Author Organization [employer] Address [address] [facility] 7t [place] [address] Care Team Providers Care Tilt Wall Supervisor Name Role Phone Genna Snow Primary Care Provider [phone] Encounter Details Date Type Department Care Team (Late st Contact Info) Description 05/30/2023 Abstract [facility] MEDICINE [address] [place], [place] [phone] Genna Snow ANP [address] [place], [place] [phone] Social History Tobacco Use Types Packs/Day Years Used Date Smoking Tobacco: Never Passive Smoke Exposure: Never Smokeless Tobacco: Never Alcohol Use Standard Drinks/Week Comments Not Currently 0 (1 standard drink = 0.6 oz pur e alcohol) Depression Answer Date Recorded Patient Health Questionnaire-9 Score 0 04/17/2023 Patient Health Questionnaire-9 Score 0 04/17/2023 Last PHQ-9: Questionnaire Data Not on file 1 06/18/2022 Housing Stability Answer Date Recorded What is [...] Answer Date Recorded Patient Health Questionnaire-2 Score 0 04/17/2023 Comments Unknown Sex and Gender Information Value [...] Description 11/19/2024 11:15 AM EDT Office Visit [facility] MEDICINE [address] [place] [address] Genna Snow ANP [address] [place] [address] documented as of this encounter Visit Diagnoses Not on filedocumented in this encounter Additional Health Concerns Assessment Noted Time PHQ-9 Depression Total Score: 0 04/17/20 23 12:51 PM EST documented as of this encounter Care Teams Tilt Wall Supervisor Relationship Specialty Start Date End Date Genna Snow ANP [address] [place] [address] PCP - General Family Medicine 03/26/21 Daniela Joy RN Care Manager 01/22/23 Jeramie Damon Wire SetterPolygraph Technician 10/28/23 documented as of this encounter
--- OUTSIDE RECORDS SUMMARY | 2024-08-09 16:18 | XMS_ITS | Encounter Summary ---
Author Organization [employer] Address 75 [facility] 7t [place] [address] Care Team Providers Care Cutting Torch Operator Name Role Phone Genna Snow Primary Care Provider [phone] Reason for Visit * Reason Comments Anxiety Encounter Details Date Type Department Care Team ([facility] st Contact Info) Description 08/09/2024 1:15 PM EDT Office Visit [facility] MEDICINE [address] [place], [place] [phone] Genna Snow ANP 230 [place], [place] [phone] LAURO (generalized anxiety disorder) (Primary Dx); Class 1 obesity with serious comorbidity and body mass index (BMI) of 34.0 to 34.9 in adult, unspecified obesity type; Need for hepatitis B screening test; Mild persistent asthma with acute exacerbation; Left hip pain Social History Tobacco Use Types Packs/Day Years Used Date Smoking Tobacco: Never Passive Smoke Exposure: Never Smokeless Tobacco: Never Alcohol Use Standard Drinks/Week Comments Not Currently 0 (1 standard drink = 0.6 oz pur e alcohol) Depression Answer Date Recorded Patient Health Questionnaire-9 Score 21 07/01/2024 Patient Health Questionnaire-9 Score 21 07/01/2024 Last PHQ-9: Questionnaire Data Not on file 0 07/01/2024 Housing Stability Answer Date Recorded What is your housing situation today? I do not have housing (Staying with others, in a hotel, in a nursing home, living outside on the street, on a beach, in a car, or in a park 06/25/[address] you li ve. Do you have problems with any of the following? Mold;Lead [place] or Pipes;Water leaks 06/25/2024 Food Insecurity Answer Date Recorded Within the past 12 months, y ou worried that your food would run out before you got money to buy more: Sometimes True 2024 Within the past 12 months,th e food you bought just didn't last and you didn't have enough money to get more: Often true 06/25/2024 Transportation Answer Date Recorded In the past 12 months, has l ack of transportation kept you from medical appts, meetings, work or from getting things needed for daily living? No 06/25/2024 Utilities Answer Date Recorded In the past 12 months, has t he electric, gas, oil or water company threatened to shut off services in your home? Yes 06/25/2024 Depression Answer Date Recorded Patient Health Questionnaire-2 Score 6 07/01/2024 Internet Access Answer Date Recorded Internet Access Q1 Yes 06/25/2024 Internet Access Q2 Not on file 06/25/2024 Comments Unknown Sex and Gender Information Value Date Recorded Sex Assigned at Female 02/25/2022 10:15 AM EDT Legal Sex Female 10:15 AM EDT Gender Identity Female 02/25/2022 10:15 AM EDT Sexual Orientation Choose not to disclose 2021 10:15 AM EDT documented as of this encounter Last Filed Vital Signs Vital Sign Reading Time Taken Comments Blood Pressure 137/84 08/09/2024 1:32 PM EDT Pulse 64 08/09/2024 1:32 PM EDT Temperature - - Respiratory Rate 16 08/09/2024 1:32 PM EDT Oxygen Saturation - - Inhaled Oxygen Concentration - - Weight 95.3 kg (210 lb) 08/09/2024 1:32 PM EDT Height 165.1 cm (5' 5 ) 08/09/2024 1:32 PM EDT Body Mass Index 34.95 08/09/2024 1:32 PM EDT documented in this encounter Plan of Treatment Upcoming Encounters Date Type Department Care Team (Late st Contact Info) Description 11/19/2024 11:15 AM EDT Office Visit [facility] [address] [place] [address] Genna Snow ANP [address] [place] [address] Scheduled Orders Name Type Priority Associated Diagnoses Orde r Schedule Hepatitis B Core Antibody, Total Lab Routine Need for hepatitis B screening test Expected: 08/09/2024 (Approximate), Expires: 08/09/2025 Hepatitis B surface antigen, EIA Lab Routine Need for hepatitis B screening test Expected: 08/09/2024 (Approximate), Expires: 08/09/2025 Hepatitis B Surface Antibody, Qualitative Lab Routine Need for hepatitis B screening test Expected: 08/09/2024 (Approximate), Expires: 08/09/2025 documented as of this encounter Visit Diagnoses Diagnosis LAURO (generalized anxiety disorder)- Primary Generalized anxiety disorder Class 1 obesity with serious comorbidity and body mass index (BMI) of 34.0 to 34.9 in adult, unspecified obesity type Need for hepatitis B screening test Mild persistent asthma with acute exacerbation Left hip pain Pain in joint, pelvic region and thigh documented in this encounter Additional Health Concerns Assessment Noted Time PHQ-9 Depression Total Score: 21 025 3:43 PM EST documented as of this encounter Care Teams Cutting Torch Operator Relationship Specialty Start Date End Date Genna Snow ANP [address] [place] [address] PCP - General Family Medicine 03/26/21 Daniela Joy RN Care Manager 01/22/23 Jeramie Damon Head NurseLicensed Final Expense Agents 10/28/23 documented as of this encounter
--- OUTSIDE RECORDS SUMMARY | 2024-08-09 16:18 | XMS_ITS | Encounter Summary ---
Author Organization [employer] Address 75 [facility] 7t [place] [address] Care Team Providers Care Physician Compensation Analyst Name Role Phone Genna Snow Primary Care Provider [phone] Encounter Details Date Type Department Care Team (Latest Contact Info) Description 08/09/2024 Travel Social History Tobacco Use Types Packs/Day Years [...] with others, in a hotel, in a usp, living outside on the street, on a beach, in a car, or in a park 06/25/[address] you li ve. Do you have problems with any of the following? Mold;Lead [place] or Pipes;Water leaks 06/25/2024 Food Insecurity Answer [...] the past 12 months, has t he [employer], gas, oil or water company threatened to [...] Description 11/19/2024 11:15 AM EDT Office Visit [facility] MEDICINE 230 [place] [address] Genna Snow ANP 230 [place] [address] documented as of this encounter Visit Diagnoses Not on filedocumented in this encounter Additional Health Concerns Assessment Noted Time PHQ-9 Depression Total Score: 21 025 3:43 PM EST documented as of this encounter Care Teams Physician Compensation Analyst Relationship Specialty Start Date End Date Genna Snow ANP [address] [place] [address] PCP - General Family Medicine 03/26/21 Daniela Joy RN Care Manager 01/22/23 Jeramie Damon Small Brake Form OperatorDirect Mail Clerk 10/28/23 documented as of this encounter
--- OUTSIDE RECORDS SUMMARY | 2024-08-09 16:18 | XMS_ITS | Encounter Summary ---
Author Organization [employer] Address 75 [facility] 7t [place] [address] Care Team Providers Care Second Hand Paper Machine Name Role Phone Genna Snow Primary Care Provider [phone] Reason for Visit * Reason Comments Med Refill Encounter Details Date Type Department Care Team ([facility] st Contact Info) Description 12/30/[address] [facility] MEDICINE [address] [place], [place] [phone] Genna Snow ANP 230 [place] [address] Depressive disorder; Heartburn Social History Tobacco Use Types Packs/Day Years [...] Description 11/19/2024 11:15 AM EDT Office Visit [facility] MEDICINE [address] [place] [address] Genna Snow ANP 230 [place] [address] documented as of this encounter Visit Diagnoses Diagnosis Depressive disorder Depressive disorder, not elsewhere classified Heartburn documented in this encounter Additional Health Concerns Assessment Noted Time PHQ-9 Depression Total Score: 19 024 12:50 PM EDT documented as of this encounter Care Teams Second Hand Paper Machine Relationship Specialty Start Date End Date Genna Snow ANP [address] [place] [address] PCP - General Family Medicine 03/26/21 Daniela Joy RN Care Manager 01/22/23 Jeramie Damon Resistor InspectorChief Librarian Branch 10/28/23 documented as of this encounter
--- OUTSIDE RECORDS SUMMARY | 2024-08-09 16:18 | XMS_ITS | Encounter Summary ---
Author Organization [employer] Address [address] [facility] 7t [place] [address] Care Team Providers Care Granulizing Machine Operator Name Role Phone Genna Snow Primary Care Provider [phone] Reason for Visit * Reason Onset Date Comments Med Refill 08/06/2024 Encounter Details Date Type Department Care Team (Late st Contact Info) Description 08/06/2024 Refill [facility] MEDICINE [address] [place], [place] [phone] Genna Snow ANP 230 [place] [address] Class 2 severe obesity with serious comorbidity and body mass index (BMI) of 36.0 to 36.9 in adult, unspecified obesity type (CMS/HCC) Social History Tobacco Use Types Packs/Day Years [...] with others, in a hotel, in a chcf, living outside on the street, on a beach, in a car, or in a park 06/25/[address] you li ve. Do you have problems with any of the following? Mold;Lead [place] or Pipes;Water leaks 06/25/2024 Food Insecurity Answer [...] encounter Miscellaneous Notes * Telephone Encounter - RITA Metzegr - 08/06/2024 2:48 PM EDT Med refill documented in this encounter Plan of Treatment Upcoming Encounters Date Type Department Care Team (Late st Contact Info) Description 11/19/2024 11:15 AM EDT Office Visit [facility] MEDICINE [address] [place] [address] Genna Snow ANP 230 [place] [address] documented as of this encounter Visit Diagnoses Diagnosis Class 2 severe obesity with serious comorbidity and body mass index (BMI) of 36.0 to 36.9 in adult, unspecified obesity type (CMS/HCC) documented in this encounter Additional Health Concerns Assessment Noted Time PHQ-9 Depression Total Score: 21 025 3:43 PM EST documented as of this encounter Care Teams Granulizing Machine Operator Relationship Specialty Start Date End Date Genna Snow ANP [address] [place] [address] PCP - General Family Medicine 03/26/21 Daniela Joy RN Care Manager 01/22/23 Jeramie Damon Tack DrillerCashier Checker 10/28/23 documented as of this encounter
--- OUTSIDE RECORDS SUMMARY | 2024-08-09 16:18 | XMS_ITS | Clinical Summary ---
Author Organization [facility] Address [address] [place] [address] Care Team Providers Care Lead Web Application Developer Name Role Phone Genna Snow NP Primary Care Provider [phone] Allergies Active Allergy Reactions Criticality Noted Date Comments Dust 02/27/2022 Oxycodone 03/26/2021 Other reaction(s): Upset stomach Pollen Extract 02/27/2022 Seasonal 10/10/2011 Medications Medication Sig Dispensed Refills Start Date End Date Status PARoxetine (PAXIL) 20 MG tablet 0 07/07/2023 Active Ventolin HFA 108 (90 Base) MCG/ACT inhaler INHALE 2 PUFFS EVERY 6 HOURS NEEDED FOR SHORTNESS OF BREATH 0 07/08/2023 Active ibuprofen 800 MG tablet TAKE 1 TABLET BY MOUTH IN THE MORNING ,NOON AND AT BEDTIME NEEDED FOR PAIN 0 07/07/2023 Active Symbicort 160-4.5 MCG/ACT inhaler PLEASE SEE ATTACHED FOR DETAILED DIRECTIONS 0 07/07/2023 Active Active Problems Problem Noted Date Diagnosed Date Class 2 obesity 08/22/2023 08/22/2023 Iron deficiency anemia due to chronic blood loss 02/27/2022 Asthma 07/30/2021 08/22/2023 Depressive disorder 07/30/2021 08/22/2023 Ureteral stone 08/29/2016 08/22/2023 Overview: Seeing urology FHx: colon cancer 07/03/2016 08/22/2023 Gestational diabetes mellitus 08/23/2014 Family History Relation Name Status Comments Father Mother Alive Social History Tobacco Use Types Packs/Day Years Used Date Smoking Tobacco: Never Smokeless Tobacco: Never Tobacco Cessation:Counseling Given: Not Answered Alcohol Use Standard Drinks/Week Comments Yes 1 (1 standard drink = 0.6 oz pur e alcohol) Socially Sex and Gender Information Value Date Recorded Sex Assigned at Female 03/08/2022 2:13 PM EST Gender Identity Not on file Sexual Orientation Not on file Job Start Date Occupation Industry Not on file Not on file Not on file Last Filed Vital Signs Vital Sign Reading Time Taken Comments Blood Pressure 138/78 12/17/2023 2:41 PM EDT Pulse 69 12/17/2023 2:41 PM EDT Temperature 36.6 ??C (97.9 ??F) 12/17/2023 2:41 PM ED T Respiratory Rate 16 12/17/2023 2:41 PM EDT Oxygen Saturation 100% 12/17/2023 2:41 PM EDT Inhaled Oxygen Concentration - - Weight 98.4 kg (217 lb) 11/24/2023 10:40 AM EDT Height 167.6 cm (5' 6 ) 11/24/2023 10:40 AM EDT Body Mass Index 35.02 11/24/2023 10:40 AM EDT Plan of Treatment Health Maintenance Due Date Last Done Comments Hepatitis B Vaccines (1 of 3 - 3-dose series) 1980 Hepatitis C Screening 1980 Depression Screening 1992 BMI Counseling 1998 Preventative Health Evaluation 1998 Cervical Cancer Screening (Pap Smear) 2001 COVID-19 Vaccine (2023-2 5 season) 2023 10/17/2021, 04/25/2021, 04/04/2021 Influenza Vaccine (#1) 2023 2, 03/26/2021 DTap / Tdap / Td (2 - Td or Tdap) 08/23/2024 08/23/2014 Pneumococcal Vaccine Aged Out No long er eligible based on patient's age to complete this topic RSV Ped < 20 months Aged Out No longe r eligible based on patient's age to complete this topic Care Teams Lead Web Application Developer Relationship Specialty Start Date End Date Genna Snow NP [address] [place] [address] PCP - General Nurse Practitioner 01/30/22
--- OUTSIDE RECORDS SUMMARY | 2024-08-09 16:18 | XMS_ITS | Encounter Summary ---
Author Organization [employer] Address [address] [facility] 7t [place] [address] Care Team Providers Care Machine Stacker Name Role Phone Genna Snow Primary Care Provider [phone] Reason for Visit * Reason Onset Date Comments Nurse Triage 06/09/2024 Encounter Details Date Type Department Care Team ([facility] st Contact Info) Description 06/09/2024 Telephone [facility] MEDICINE [address] [place], [place] [phone] Genna Snow ANP 230 [place] [address] Nurse Triage Social History Tobacco Use Types Packs/Day Years Used Date Smoking Tobacco: Never Passive Smoke Exposure: Never Smokeless Tobacco: Never Alcohol Use Standard Drinks/Week Comments Not Currently 0 (1 standard drink = 0.6 oz pur e alcohol) Depression Answer Date Recorded Patient Health Questionnaire-9 Score 12/16/2023 Patient Health Questionnaire-9 Score 19 12/16/2023 [...] Telephone Encounter - Christin Perez RN - 06/09/2024 10:27 AM EST Triage call Pt reports dizziness with fatigue which started yesterday. Pt had 10 days of heavy menstrual bleeding a week or so earlier. Pt is concerned that HGB could be low. Pt reports ankle swelling especially in left ankle also. Pt is able to ambulate without difficulty. Shoes are a bit tight sowears sandals as much as possible. Pt is advised to keep feet up while sitting and to prevent fallsadjusting prior to ambulating from sitting position if dizziness anticipated. Pt reports isnear by when Pt doesn't feel well. ASK apt with PCP 06/11/24 @ 1130am. Pt agrees with disposition. Insurance is verified as active prior to booking. Protocol Used: Dizziness (Adult) Protocol-Based Disposition: See in Office or Video Visit within 3 Days Positive Triage Question: * Mild dizziness (e.g., walking normally) and has NOT been evaluated by physician for this (Exception: Dizziness caused by heat exposure, sudden standing, or poor fluid intake.) * All higher-acuity triage questions were negative Care Advice Discussed: * Drink Fluids * Reasons To Call Back - After 2 hours of rest and fluids and you are still feeling dizzy - You pass out (faint) or are too weak to stand - You become worse * Telephone Encounter - Crescencio Edwards - 06/09/2024 9:44 AM EST Symptoms: Dizziness, Foot or Ankle Swelling Outcome: Talk to a nurse or provider within 15 minutes Reason: Trouble walking Please contact pt at [phone]. documented in this encounter Plan of Treatment Upcoming Encounters Date Type Department Care Team ([facility] st Contact Info) Description 11/19/2024 11:15 AM EDT Office Visit [facility] MEDICINE [address] [place] [address] Genna Snow ANP [address] [place] [address] documented as of this encounter Visit Diagnoses Not on filedocumented in this encounter Additional Health Concerns Assessment Noted Time PHQ-9 Depression Total Score: 19 024 12:50 PM EDT documented as of this encounter Care Teams Machine Stacker Relationship Specialty Start Date End Date Genna Snow ANP [address] [place] [address] PCP - General Family Medicine 03/26/21 Daniela Joy RN Care Manager 01/22/23 Jeramie Damon Expansion Joint FinisherWall Scraper 10/28/23 documented as of this encounter
--- OUTSIDE RECORDS SUMMARY | 2024-08-09 16:19 | XMS_ITS | Encounter Summary ---
Author Organization [employer] Address [address] [facility] 7t [place] [address] Care Team Providers Care Adjusto Writer Operator Name Role Phone Genna Snow Primary Care Provider [phone] Reason for Visit * Reason Comments Med Refill Encounter Details Date Type Department Care Team ([facility] st Contact Info) Description 11/07/[address] [facility] MEDICINE [address] [place], [place] [phone] Genna Snow ANP [address] [place] [address] Depressive disorder Social History Tobacco Use Types Packs/Day Years Used Date Smoking Tobacco: Never Passive Smoke Exposure: Never Smokeless Tobacco: Never Alcohol Use Standard Drinks/Week Comments Not Currently 0 (1 standard drink = 0.6 oz pur e alcohol) Depression Answer Date Recorded Patient Health Questionnaire-9 Score 14 09/16/2023 Patient Health Questionnaire-9 Score 14 09/16/2023 Last PHQ-9: Questionnaire Data Not on file 0 09/16/2023 Housing Stability Answer Date Recorded What is [...] Answer Date Recorded Patient Health Questionnaire-2 Score 4 09/16/2023 Comments Unknown Sex and Gender Information Value [...] 11/19/2024 11:15 AM EDT Office [facility] MEDICINE [address] [place] [address] Genna Snow ANP [address] [place] [address] documented as of this encounter Visit Diagnoses Diagnosis Depressive disorder Depressive disorder, not elsewhere classified documented in this encounter Additional Health Concerns Assessment Noted Time PHQ-9 Depression Total Score: 14 024 3:11 PM EDT documented as of this encounter Care Teams Adjusto Writer Operator Relationship Specialty Start Date End Date Genna Snow ANP [address] [place] [address] PCP - General Family Medicine 03/26/21 Daniela Joy RN Care Manager 01/22/23 Jeramie Damon Flying Ii InstructorAddiction Medicine Physician 10/28/23 documented as of this encounter
--- OUTSIDE RECORDS SUMMARY | 2024-08-09 16:19 | XMS_ITS | Encounter Summary ---
Author Organization [facility] Address [address] [place] [address] Care Team Providers Care Fac Engineer Name Role Phone Genna Snow NP Primary Care Provider [phone] Encounter Details Date Type Department Care Team (Latest Contact Info) Description 04/23/2024 Lab Requisition [facility] - Main Lab [address] [facility] [place] [phone] Bertha Grewal MD 299 [facility] [address] [place] [phone] Unspecified abnormal cytological findings in specimens from cervix uteri; Encounter for gynecological examination (general) (routine) without abnormal findings Social History Tobacco Use Types Packs/Day Years Used Date Smoking Tobacco: Never Smokeless Tobacco: Never Alcohol Use Standard Drinks/Week Comments Yes 1 (1 standard drink = 0.6 oz pur e alcohol) Comments Unknown Sex and Gender Information Value Date Recorded Sex Assigned at Not on file Legal Sex Female 9:59 AM EST Gender Identity Not on file Sexual Orientation Not on file documented as of this encounter Plan of Treatment Upcoming Encounters Date Type Department Care Team (Late st Contact Info) Description 08/11/2024 9:30 AM EDT Consult Orthopedic Surgery - [place] 250 175 [facility] [address] [place] [phone] Jacob Lim, DPM [address] [address] 09/13/2024 10:30 AM EDT Office Visit [facility] Hematology Oncology [address] [place] [phone] Juan Carlos Savannah Alisha, DO [address] [place] [address] documented as of this encounter Procedures Procedure Name Priority Date/Time Associated Diagnosis Comments CHLAMYDIA TRACHOMATIS AND NEISSERIA GONORRHOEAE BY TMA, THINPREP Routine 04/22/2024 12:00 AM EST Unspecified abnormal cytological findings in specimens from cervix uteri PAP SMEAR Routine 04/22/2024 12:00 AM EST Unspecified abnormal cytological findings in specimens from cervix uteri documented in this encounter Results * Chlamydia trachomatis and neisseria gonorrhoeae by tma, thinprep (04/22/2024 12:00 AM EST) N. gonorrhoeae, RNA Probe Negative Negative LAB MICROBIOLOGY METHOD 04/23/2024 1:37 PM EST [facility] Chlamydia, RNA Probe Negative Negative LAB MICROBIOLOGY METHOD 04/23/2024 1:37 PM EST [facility] Brushing/Spatula Cervix uteri structure / Unknown 04/22/2024 04/23/2024 7:04 AM EST us Bertha Grewal MD LAB CYTOLOGY ORDERABLES Final Result [facility] [address] [place] [address], * Pap smear (04/22/2024 12:00 AM EST) Interpretation Negative for intraepithelial lesion or malignancy 04/26/2024 4:26 PM EST [facility] General Categorization Negative 04/26/2024 4:26 PM [...] screening system. Technical cytopathology services provided by [facility], at [address] [place] [address] (CLIA # [id number]/Penny Ozuna MD, Reverse Unit Operator.) 04/26/2024 4:26 PM [facility] Console Pap Interpretation Reported 04/26/2024 4:26 PM [facility] Brushing/Spatula Cervix uteri structure / Unknown 04/22/2024 04/23/2024 7:04 AM EST us Bertha Grewal MD LAB CYTOLOGY ORDERABLES Final Result [facility] [address] [place] [address], documented in this encounter Visit Diagnoses Diagnosis Unspecified abnormal cytological findings in specimens from cervix uteri Encounter for gynecological examination (general) (routine) without abnormal findings documented in this encounter Care Teams Fac Engineer Relationship Specialty Start Date End Date Genna Snow NP [address] [place] [phone] PCP - General 01/30/22 documented as of this encounter
--- OUTSIDE RECORDS SUMMARY | 2024-08-09 16:19 | XMS_ITS | Clinical Summary ---
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 Modality Breast Left Ultrasound 04/01/2024 11:5 2 AM EST Narrative 04/01/2024 12:18 PM EST ? [facility] ? [address] ?[place] [address] ? Ultrasound Report ? Signed ? Patient: Madison Eric ?MR#: [id number] ? : 1980 ?Acct:[id number] ? Age/Sex: 43 / F ?ADM Date: 04/01/24 ? Loc: HO.MAMMO ? Attending Dr: Emil Rodriguez CNM ? Ordering Physician: EMIL RODRIGUEZ CNM ?? Date of Service: 04/01/24 ?? Procedure(s): US breast LT limited mamm only ?? Accession Number(s): [id number] ? cc: EMIL RODRIGUEZ CNM; MARGOTH BAIG NP ? EXAMINATION: ?? MM DIAGNOSTIC DIGITAL BREAST TOMOSYNTHESIS, LEFT ?? Limited left breast ultrasound. ? CLINICAL INFORMATION: ? Left palpable lump. ? COMPARISON: ?? Mammography: Comparison is made with available prior examinations. ? TECHNIQUE: ?? Digital breast tomosynthesis is performed in both the craniocaudal and ?? mediolateral oblique views along with computer-aided detection (CAD). ?? Synthesized 2D images are generated from the tomosynthesis. ? Left Limited ultrasound. ? FINDINGS: ?? The breasts are heterogeneously dense, which may obscure small masses ?? (ACR BI-RADS breast composition Category c). ?? BB marker in the upper central breast with an underlying circumscribed ?? oval mass measuring up to 2 cm. ? No suspicious calcifications or other abnormal findings. ? Targeted color Doppler left breast ultrasound scanning in the superior ?? breast area of patient's palpable lump from 10-2 o'clock demonstrates a ?? simple cyst at 11:00 7 cm from the nipple measuring 20 x 15 x 19 mm ?? correlating with the patient's palpable lump and is benign. ? There is a simple cyst at 11:00 7 cm from the nipple measuring 8 x 5 x ?? 8 mm. ? US/US breast LT limited mamm only ?? IMPRESSION: ?? Simple cysts correlating with patient's palpable lump. Benign. ?? Discussion with the patient that if she has persistent and increasing ?? pain in this area this cyst is amenable to aspiration for pain relief. ? ASSESSMENT: ? BI-RADS BI-RADS 2 - Benign Findings ? RECOMMENDATION: ?? 1 year F/U ? Results were provided to the patient at time of visit by the ?? technologist. ? This patient's information was entered into a reminder system with a ?? target due date for their next mammogram. ? Electronically signed by: ??Lluvia Carpio DO ??04/01/2024 12:15 PM EST ? Dictated By: ?Balaji,Lluvia DO ? Signed By: ?<Electronically signed by Lluvia Carpio, DO in OV> ? 04/01/24 1215 ? DD/ 1152 ? TD/TT: 04/01/24 1207 ? Social And Human Services Assistant: ? Procedure Note Domonique Cartagena - 04/01/2024 [place] [facility] [address] [place], [place] [address] Ultrasound Report Signed Patient: Madison Eric#: [id number] : 1980Acct:[id number] Age/Sex: 43 / FADM Date: 04/01/24 Loc: HO.MAMMO Attending Dr: Emil Rodriguez CNM Ordering Physician: EMIL RODRIGUEZ CNM Date of Service: 04/01/24 Procedure(s): US breast LT limited mamm only Accession Number(s): [id number] cc: EMIL RODRIGUEZ CNM; MARGOTH BAIG NP EXAMINATION: MM DIAGNOSTIC DIGITAL BREAST TOMOSYNTHESIS, LEFT Limited left breast ultrasound. CLINICAL INFORMATION: Left palpable lump. COMPARISON: Mammography: Comparison is made with available prior examinations. TECHNIQUE: Digital breast tomosynthesis is performed in both the craniocaudal and mediolateral oblique views along with computer-aided detection (CAD). Synthesized 2D images are generated from the tomosynthesis. Left Limited ultrasound. FINDINGS: The breasts are heterogeneously dense, which may obscure small masses (ACR BI-RADS breast composition Category c). BB marker in the upper central breast with an underlying circumscribed oval mass measuring up to 2 cm. No suspicious calcifications or other abnormal findings. Targeted color Doppler left breast ultrasound scanning in the superior breast area of patient's palpable lump from 10-2 o'clock demonstrates a simple cyst at 11:00 7 cm from the nipple measuring 20 x 15 x 19 mm correlating with the patient's palpable lump and is benign. There is a simple cyst at 11:00 7 cm from the nipple measuring 8 x 5 x 8 mm. US/US breast LT limited mamm only IMPRESSION: Simple cysts correlating with patient's palpable lump. Benign. Discussion with the patient that if she has persistent and increasing pain in this area this cyst is amenable to aspiration for pain relief. ASSESSMENT: BI-RADS BI-RADS 2 - Benign Findings RECOMMENDATION: 1 year F/U Results were provided to the patient at time of visit by the technologist. This patient's information was entered into a reminder system with a target due date for their next mammogram. Electronically signed by: Lluvia Carpio DO 04/01/2024 12:15 PM [facility] Dictated By: Lluvia Carpio DO Signed By: <Electronically signed by Lluvia Carpio DO in OV> 04/01/24 1215 DD/ 1152 TD/TT: 04/01/24 1207 Social And Human Services Assistant: Emil Rodriguez CNM [facility] US PROCEDURES Edited Result - Final * (ABNORMAL) Lipid Panel, Standard (11/18/2023 10:38 AM EDT) Triglycerides 172(H) <150 mg/dL [facility] Comment:Desirable Triglyceri de: less than 150 mg/dLBorderline High Triglyceride 150-199 mg/dLHigh Triglyceride: 200-499 mg/dLVery High Triglyceride: greater than or equal to 5OO mg/dL Cholesterol 227(H) <200 mg/dL [facility] Comment:Desirable Cholestero l: less than 200 mg/dLBorderline High Cholesterol: 200-239 mg/dLHigh Cholesterol: greater than 239 mg/dL LDL Cholesterol Calculated 146(H) <100 mg/dL [facility] Comment:Desirable LDL: less than 100 mg/dLNear Optimal/Above Optimal LDL: 110- 129 mg/dLBorderline High LDL: 130-159 mg/dLHigh LDL: 160-189 mg/dLVery High LDL: greater than or equal to 190 mg/dL HDL Cholesterol 47 >40 mg/dL [facility] Comment:Desirable HDL: great er than 40 mg/dL Note: This HDL assay may give artificially low results in patients with liver disease. Blood Venous blood specimen / Unknown 11/18/2023 10:38 AM EDT 11/18/2023 10:38 AM EDT Margoth Baig [facility] BLOOD ORDERABLES Final Resul t [facility] [address] [place] [address] [phone] * THINPREP TIS PAP AND HPV mRNA E6/E7, CT/NG, TRICH (10/10/2021 3:14 PM EDT) Chlamydia trachomatis RNA, TMA, Urogenital NOT DETECTED NOT DETECTED [facility] Clinical Information: None given [facility] COMMENT SEE COMMENT [facility] Comment: The analytical performance characteristics of this assay, when used to test SurePath(TM) specimens have been determined by [employer]. The modifications have not been cleared or approved by the FDA. This assay has been validated pursuant to the CLIA regulations and is used for clinical purposes. ?? For additional information, please refer to https://[employer].Check/faq/GLV741 (This link is being provided for information/ educational purposes only.) ?? COMMENT SEE COMMENT [facility] Comment: EXPLANATORY NOTE: ? The Pap is a screening test for cervical cancer. It is ?? not a diagnostic test and is subject to false negative ?? and false positive results. It is most reliable when a ?? satisfactory sample, regularly obtained, is submitted ?? with relevant clinical findings and history, and when ?? the Pap result is evaluated along with historic and ?? current clinical information. ?? COMMENT: This Pap test has been evaluated with computer assisted technology. [facility] Skiver Machine: SEE COMMENT [facility] Comment: ED, CT(ASCP) CT screening location: ?? [facility] ?? [address] [place] [address] ?? [place] [address] HPV nRNA E6/E7 Not Detected Not Detected [facility] Comment: Methodology: Paradi Tender-Mediated Amplification This assay detects E6/E7 viral messenger RNA (mRNA) from 14 high-risk HPV types (16,18,31,33,35,39,45,51,52,56,58,59,66,68). ? Cervical sources are required for HPV testing. If a vaginal source from a patient who has had a total hysterectomy with removal of cervix was ?? submitted, please contact the testing laboratory for alternative testing options. ?? For additional information, please refer to http://education.Check/faq/QHD815p0 (This link if provided for information/ educational purposes only.) Interpretation/Re sult: Negative for intraepithelial lesion or malignancy. [facility] LMP: 10/02/2021 [facility] Neisseria gonorrhoeae RNA, TMA, Urogenital NOT DETECTED NOT DETECTED [facility] Prev. BX: NONE GIVEN [facility] Prev. PAP: NONE GIVEN [facility] SOURCE: None given [facility] Statement Of Adequacy: SEE COMMENT [facility] Comment: Satisfactory for evaluation. Endocervical/transformation zone component absent. Trichomonas vaginalis, QL, TMA, PAP Vial NOT DETECTED NOT DETECTED [facility] Comment: The analytical performance characteristics of this assay have been determined by [facility]. The modifications have not been cleared or approved by the FDA. This assay has been validated pursuant to the CLIA regulations and is used for clinical purposes. ?? For additional information, please refer to http://[employer].Check/ faq/Trichomonastma (This link is being provided for information/ educational purposes only.) ?? 10/10/2021 3:14 PM EDT Emil SOTO LAB PATHOLOGY ORDERABLES Final Result Performing Organization Address [facility] Phone Number [facility] [address] * HEPATITIS C AB W/REFL TO HCV RNA, QN, PCR (08/20/2021 10:22 AM EDT) HEPATITIS C ANTIBODY NON-REACT FRIEDA NON-REACT FRIEDA [facility] INDEX 0.01 <1.00 [facility] Comment: ?? HCV antibody was non-reactive. There is no laboratory ?? evidence of HCV infection. ?? In most cases, no further action is required. However, if recent HCV exposure is suspected, a test for HCV RNA (test code 15958) is suggested. ?? For additional information please refer to http://[employer].Check/faq/VQU81i6 (This link is being provided for informational/ educational purposes only.) ?? 08/20/2021 10:2 2 AM EDT Margoth Baig ANP HISTORICAL/NON ORDERABLE LABS Fi nal Result Performing Organization Address [facility] de Phone Number [facility] [address] * HIV 1/2 ANTIGEN/ANTIBODY,FOURTH GENERATION W/RFL (08/20/2021 10:22 AM EDT) HIV-1/2 ANTIGEN AND ANTIBODIES, 4TH GENERATION W/ REFLEX NON-REACT FRIEDA NON-REACT FRIEDA [facility] Comment: HIV-1 antigen and HIV-1/HIV-2 antibodies were not detected. There is no laboratory evidence of HIV infection. ?? PLEASE NOTE: This information has been disclosed to you from records whose confidentiality may be protected by state law. ??If your state requires such protection, then the state law prohibits you from making any further disclosure of the information without the specific written consent of the person to whom it pertains, or as otherwise permitted by law. A general authorization for the release of medical or other information is NOT sufficient for this purpose. ? For additional information please refer to http://education.Check/faq/CZV375 (This link is being provided for informational/ educational purposes only.) ? The performance of this assay has not been clinically validated in patients less than 2 years old. ?? 08/20/2021 10:2 2 AM EDT [facility] LAB BLOOD ORDERABLES Final Resul t [facility] [address] from Last 3 Months or Most Recently Relevant to Health Maintenance Insurance [facility] C3 [employer] AD[place] Care Teams Remnant Sorter Relationship Specialty Start Date End Date Margoth Baig ANP [address] [place] [id number] PCP - General Family Medicine 03/26/21 Daniela Joy portfolio accountant 01/22/23 Jeramie Damon Stage DirectorToll Test Worker 10/28/23
[2024-08-10 08:18] LABS: HBS Num1 1.02 mIU/mL (0-7.99); HBc Num1 0.06 S/CO (0.00-0.79); HBsAGNum1 0.28 S/CO (0.00-0.99); Hepatitis B Core Antibody Nonreactive (Nonreactive); Hepatitis B Surface Antigen Negative (Negative); ~Hepatitis B Surface Antibody NONREACTIVE (Nonreactive)
== END 2024-08-09 14:02 | disposition home or self-care (01) ==
LOC: HO.HHCL 14:01
PROVIDERS: Visit Provider Nurse Practitioner Primary Care
DX: Z11.59 Encounter for screening for other viral diseases (principal); Z72.89 Other problems related to lifestyle
CPT/HCPCS: 36415; 86704; 86706; 87340

== ENCOUNTER 2024-11-22 09:18 | Outpatient (REF) | payer MEDICAID, SELFPAY ==
--- OUTSIDE RECORDS SUMMARY | 2024-11-22 10:07 | XMS_ITS | Encounter Summary ---
Author Organization [employer] Address [address] [place] [address] Care Team Providers Care Tobacco Packer Name Role Phone Genna Snow Primary Care Provider Encounter Details Date Type Department Care Team (Late st Contact Info) Description 08/25/2024 Orders Only [facility] [address] [place] [address] Josey Gray Social History Tobacco Use Types Packs/Day Years [...] with others, in a hotel, in a residential, living outside on the street, on a beach, in a car, or in a park 06/25/[address] you li ve. Do you have problems with any of the following? Mold;Lead Smyer or Pipes;Water leaks 06/25/2024 Food Insecurity Answer [...] Upcoming Encounters Date Type Department Care Team ([facility] st Contact Info) Description 12/13/2024 9:30 AM EDT Office Visit [facility] [address] [place] [address] Elizabeth Phillip, OD [address] [place] [address] documented as of this encounter Procedures Procedure Name Priority Date/Time Associated Diagnosis Comments HM PAP/HPV Routine 04/22/2024 12:00 AM EST documented in this encounter Results * HM PAP/HPV (04/22/2024 12:00 AM EST) us Historical Provider HEALTH MAINTENANCE Final Result documented in this encounter Visit Diagnoses Not on filedocumented in this encounter Additional Health Concerns Assessment Noted Time PHQ-9 Depression Total Score: 21 025 3:43 PM EST documented as of this encounter Care Teams Tobacco Packer Relationship Specialty Start Date End Date Genna Snow ANP [address] [place] [address] PCP - General Family Medicine 03/26/21 Daniela Joy RN Care Manager 01/22/23 Jeramie Damon Tread BookerFluxer 10/28/23 documented as of this encounter
--- OUTSIDE RECORDS SUMMARY | 2024-11-22 10:07 | XMS_ITS | Clinical Summary ---
Author Organization [facility] Address [address] [place] [address] Phone Care Team Providers Care Manufacturing Technology Professor Name Role Phone Genna Snow NP Primary Care Provider [phone] Allergies No known active allergies Medications ibuprofen [...] 1 capsule (20 mg total) by mouth. 2 Active Zepbound 7.5 mg/0.5 mL injection Inject 0.5 mL (7.5 mg total) under the skin every 7 (seven) days. 5 Active Active Problems Problem Noted Date Diagnosed Date Iron deficiency anemia due to chronic blood loss 02/27/2022 Ureteral stone 08/29/2016 Overview (02/23/2024): Seeing urology Bipolar disorder ([facility] V24, [facility] V28) 07/28 Gestational diabetes mellitus 08/23/2014 Encounters Date Type Department Care Team Description 10/25/2024 Telephone [facility] Hematology Oncology [address] [place] [phone] Olivia Golden [place] 09/13/2024 1:15 PM EDT Office Visit Orthopedic Surgery [facility] [address] [phone] Jacob Lim, DPM Plantar fascial fibromatosis (Primary Dx); Follow-up exam; Equinus contracture of ankle; Sciatica of left side; Calcaneal spur of left foot 09/13/2024 10:30 AM EDT Office Visit [facility] Hematology Oncology [address] [place] [phone] Savannah Rangel DO Iron deficiency anemia due to chronic blood loss (Primary Dx); Menorrhagia with irregular cycle from Last 3 Months Immunizations Name Administration Dates Next Due PPD Test 08/23/2014 Priceonomics (ages 12 & older) MALLY S-CoV-2 COVID-19, [...] Sign Reading Time Taken Comments Blood Pressure 132/79 09/13/2024 10:42 AM EDT Pulse 61 09/13/2024 10:42 AM EDT Temperature 36.7 C (98 F) 09/13/2024 10:42 AM EDT Respiratory Rate - - Oxygen Saturation 100% 09/13/2024 10:42 AM EDT Inhaled Oxygen Concentration - - Weight 92.5 kg (204 lb) 09/13/2024 12:59 PM EDT Height 165.1 cm (5' 5 ) 09/13/2024 12:59 PM EDT Body Mass Index 33.95 09/13/2024 12:59 PM EDT Plan of Treatment Upcoming Encounters Date Type Department Care Team (Late st Contact Info) Description 02/14/2025 10:45 AM EDT Office Visit [facility] Hematology Oncology [address] [place] [phone] Savannah Rangel, [address] [place] [address] Health Maintenance Due Date Last Done Comments Social Influencers of Health Screening 04/10/2022 HPV Vaccines (2 - 3-dose SCDM series) 12/16/2023 11/18/2023 COVID-19 Vaccine ( season) 2023 02/27/2022, 10/17/2021, 04/25/2021, Additional history exists Depression Screening 04/28/2024 Hepatitis B Vaccines (2 of 2 - CpG 2-dose series) 09/07/2024 08/10/2024 Influenza Vaccine (#1) 2024 , 02/27/2022, 03/26/2021, Additional history exists Breast Cancer Screening 10/06/2025 10/07/2023 Cervical Cancer Screening: Pap Smear 04/22/2027 04/22/2024, 09/23/2014, 09/23/2014 Cholesterol Screening (Lipid Panel) 11/17/2028 11/18/2023, 07/03/2016 DTaP,Tdap,and Td Vaccines (3 - Td or Tdap) 08/09/2034 08/09/2024, 08/23/2014 Hepatitis C Screening Completed 12/21/2015 HIV Screening Completed 08/20/2021, 12/21/2015 Pneumococcal Vaccine: Pediatrics (0 to 5 Years) and At-Risk Patients (6 to 49 Years) Completed 11/18/2023 HIB Vaccines Aged Out No longer eligi [...] Procedure Name Priority Date/Time Associated Diagnosis Comments INJECTION TENDON OR LIGAMENT Routine 09/13/2024 1:15 PM EDT Plantar fascial fibromatosis XR FOOT 3+ VIEWS LEFT Routine 09/13/2024 1:13 PM EDT Follow-up exam CBC WITH AUTO DIFFERENTIAL Routine 09/13/2024 11:01 AM EDT Iron deficiency anemia due to chronic blood loss FERRITIN Routine 09/13/2024 11:01 AM EDT Iron deficiency anemia due to chronic blood loss IRON AND TIBC Routine 09/13/2024 11:01 AM EDT Iron deficiency anemia due to chronic blood loss CBC AND DIFFERENTIAL Routine 09/13/2024 11:01 AM EDT Iron deficiency anemia due to chronic blood loss PAP SMEAR Routine 04/22/2024 12:00 AM EST Unspecified abnormal cytological findings in specimens from cervix uteri MG MAMMO DIGITAL SCREENING W TORIBIO BILAT Routine 10/07/2023 8:37 AM EDT LIPID PANEL Routine 07/03/2016 HEPATITIS C SCREENING Routine 12/21/2015 HIV SCREENING Routine 12/21/2015 from Last 3 Months or Most Recently Relevant to Health Maintenance Results * Injection tendon or ligament (09/13/2024 1:15 PM EDT) Narrative Jacob Lim DPM - 09/13/2024 1:15 PM EDT Jacob Lim DPM 09/13/2024 1:40 PM Injection tendon or ligament Indications: pain Details: 25 G needle Medications: 0.5 mL lidocaine (PF) 1 %; 20 mg triamcinolone acetonide 40 mg/mL Informed Consent: Site: Foot ligament tendon Jacob Lim DPM IN CLINIC/BEDSIDE ORDERAB LES Final Result * XR Foot 3+ Views Left (09/13/2024 1:13 PM EDT) Anatomical Region Laterality Modality Lower Extremities, Foot Left Computed Radiography Narrative 09/13/2024 1:39 PM EDT Left foot 3 views No fracture. No radiopaque foreign joint spaces normal Mild calcaneal spur Foot position Pes planus with Talus navicular uncovering decreased calcaneal inclination anterior displaced symes line talus navicular joint to calcaneal cuboid joint Jacob Lim DPM IMG XR PROCEDURES Final R esult * (ABNORMAL) CBC auto differential (09/13/2024 11:01 AM EDT) [facility] WBC 9.5 4.8 - 10.8 K/mcL LAB HEMETOLOGY METHOD 09/13/2024 11:59 AM [facility] RBC 4.60 3.80 - 4.80 M/mcL LAB HEMETOLOGY METHOD 09/13/2024 11:59 AM [facility] Hemoglobin 12.5 11.5 - 16.0 g/dL LAB HEMETOLOGY METHOD 09/13/2024 11:59 AM [facility] Hematocrit 38.9 35.0 - 47.0 % LAB HEMETOLOGY METHOD 09/13/2024 11:59 AM [facility] MCV 85.5 79.0 - 98.0 FL LAB HEMETOLOGY METHOD 09/13/2024 11:59 AM [facility] MCH 27.5 27.0 - 32.0 pcg LAB HEMETOLOGY METHOD 09/13/2024 11:59 AM [facility] MCHC 32.1 32.0 - 37.0 g/dL LAB HEMETOLOGY METHOD 09/13/2024 11:59 AM [facility] RDW 14.6 11.0 - 15.0 % LAB HEMETOLOGY METHOD 09/13/2024 11:59 AM [facility] Platelets 274 130 - 400 K/mcL LAB HEMETOLOGY METHOD 09/13/2024 11:59 AM [facility] MPV 10.0 7.0 - 11.0 FL LAB HEMETOLOGY METHOD 09/13/2024 [facility] NRBC 0.0 <1.0 % LAB HEMETOLOGY METHOD 09/13/2024 11:59 AM [facility] NRBC Absolute 0.00 <0.10 K/mcL LAB HEMETOLOGY METHOD 09/13/2024 11:59 AM [facility] Neutrophils Relative 56.8 % LAB HEMETOLOGY METHOD 09/13/2024 11:59 AM [facility] Lymphocytes Relative 34.6 % LAB HEMETOLOGY METHOD 09/13/2024 11:59 AM [facility] Monocytes Relative 6.3 % LAB HEMETOLOGY METHOD 09/13/2024 11:59 AM [facility] Eosinophils Relative 1.5 % LAB HEMETOLOGY METHOD 09/13/2024 11:59 AM [facility] Basophils Relative 0.2 % LAB HEMETOLOGY METHOD 09/13/2024 11:59 AM [facility] Immature Granulocytes Relative 0.6 % LAB HEMETOLOGY METHOD 09/13/2024 11:59 AM [facility] Neutrophils Absolute 5.41 1.50 - 7.00 K/mcL LAB HEMETOLOGY METHOD 09/13/2024 11:59 AM [facility] Lymphocytes Absolute 3.30 1.00 - 5.00 K/mcL LAB HEMETOLOGY METHOD 09/13/2024 11:59 AM [facility] Monocytes Absolute 0.60 0.20 - 1.00 K/mcL LAB HEMETOLOGY METHOD 09/13/2024 11:59 AM [facility] Eosinophils Absolute 0.14 0.00 - 0.50 K/mcL LAB HEMETOLOGY METHOD 09/13/2024 11:59 AM [facility] Basophils Absolute 0.02 0.00 - 0.20 K/mcL LAB HEMETOLOGY METHOD 09/13/2024 11:59 AM [facility] Immature Granulocytes Absolute 0.06(H) 0.00 - 0.03 K/mcL LAB HEMETOLOGY METHOD 09/13/2024 11:59 AM [facility] Blood Venous blood specimen / Unknown Venipuncture / Unknown 09/13/2024 11:01 AM EDT 09/13/2024 11:13 AM EDT Earnestine MCLAIN LAB BLOOD ORDERABLES Final Re sult Performing Organization Address [facility]/ZIP Co de Phone Number [facility] [address] [place] [address], [place] [phone] * (ABNORMAL) Iron and TIBC (09/13/2024 11:01 AM EDT) Iron 33(L) 40 - 150 mcg/dL LAB CHEMISTRY METHOD 09/13/2024 12:34 PM EDT [facility] TIBC 301 250 - 450 mcg/dL LAB CHEMISTRY METHOD 09/13/2024 12:34 PM EDT [facility] Iron Saturation 11(L) 15 - 50 % LAB CHEMISTRY METHOD 09/13/2024 12:34 PM EDT [facility] Blood Venous blood specimen / Unknown Venipuncture / Unknown 09/13/2024 11:01 AM EDT 09/13/2024 11:13 AM EDT Earnestine MCLAIN LAB BLOOD ORDERABLES Final Re sult Performing Organization Address [facility]/ZIP Co de Phone Number [facility] [address] [place] [address], [place] [phone] * Ferritin (09/13/2024 11:01 AM EDT) Ferritin 14 8 - 252 ng/mL LAB CHEMISTRY METHOD 09/13/2024 12:34 PM EDT [facility] Blood Venous blood specimen / Unknown Venipuncture / Unknown 09/13/2024 11:01 AM EDT 09/13/2024 11:13 AM EDT us Earnestine MCLAIN LAB BLOOD ORDERABLES Final Re sult Performing Organization Address City/[facility]/ZIP Co de Phone Number [facility] [address] [place] [phone], * Pap smear (04/22/2024 12:00 AM EST) Interpretation Negative for intraepithelial lesion or malignancy 04/26/2024 4:26 PM [facility] General Categorization Negative 04/26/2024 4:26 PM [facility] Other Findings Shift in ramin suggestive of bacterial vaginosis 04/26/2024 4:26 PM [facility] Specimen Adequacy Satisfactory for evaluation, endocervical/valente sformation zone component absent 04/26/2024 4:26 PM [facility] Pap Methodology Liquid Based Pap Test 04/26/2024 4:26 PM [facility] Disclaimer The Pap test is a screening test which carries an inherent false negative rate. These test results should be correlated with the patient's clinical findings and history. This Pap test was processed using an automated screening system. Technical cytopathology services provided by [facility], at [address] [place] [id number] (CLIA # [id number]/Penny Ozuna MD, Circular Stuffer.) 04/26/2024 4:26 PM [facility] Console Pap Interpretation Reported 04/26/2024 4:26 PM [facility] Brushing/Spatula Cervix uteri structure / Unknown 04/22/2024 04/23/2024 7:04 AM EST Bertha Grewal MD LAB CYTOLOGY ORDERABLES Final Result [facility] [address] [place] [address], * MG Mammo Digital Screening w Toribio bilat (10/07/2023 8:37 AM EDT) Anatomical Region Laterality Modality Breast Bilateral Mammography Genna Snow NP IMG BI PROCEDURES Final Result * (ABNORMAL) Lipid panel (07/03/2016) LDL/HDL Ratio 5(A) 0 - 4 Triglycerides 165(A) 0 - 150 mg/dL Cholesterol 252(A) 0 - 200 mg/dL HDL 46 >=40 mg/dL LDL Cholesterol 173(A) 0 - 100 mg/dL Blood Venous blood specimen / Unknown Result [facility] Historical Provider LAB BLOOD ORDERABLES Shelli l Result * HIV Screening (12/21/2015) HIV Screening Abstracted Result [facility] Historical Provider HEALTH MAINTENANCE Final Result * Hepatitis C Screening (12/21/2015) Pathologist [facility] Hepatitis C Screening Abstracted Result [facility] Historical Provider HEALTH MAINTENANCE Final Result from Last 3 Months or Most Recently Relevant to Health Maintenance Insurance MEDICAID - [place] Care Teams Manufacturing Technology Professor Relationship Specialty Start Date End Date Genna Snow NP [address] [place] [phone] PCP - General 01/30/22
--- OUTSIDE RECORDS SUMMARY | 2024-11-22 10:07 | XMS_ITS | Clinical Summary ---
Author Organization [facility] Address [address] [facility] [address] [place] [id number] Phone Care Team Providers Care Skein Yarn Dyer Helper Name Role Phone Genna Snow NP Primary Care Provider [phone] Allergies No known active allergies Medications No known medications Social History Tobacco Use Types Packs/Day Years Used Date Smoking Tobacco: Never Assessed Education Answer Date Recorded Are you interested in more education? Not on lora e 05/10/2023 Are you concerned about learning? Not on file 05/10/2023 No 05/10/2023 No 05/10/2023 Digital Access Answer Date Recorded No 05/10/2023 No 05/10/2023 Reliable internet access at home? Not on file 05/10/2023 Device with a working camera? Not on file Intimate Partner Violence Answer Date R ecorded Are you denied basic needs s uch as food, clothing, or medical care? No 05/10/2023 In the past 12 months have y ou been in a relationship with a person who hurts, threatens, or tries to control you? No 05/10/2023 Are you denied basic needs s uch as food, clothing, or medical care? No 05/10/2023 In the past 12 months have y ou been in a relationship with a person who hurts, threatens, or tries to control you? No 05/10/2023 Comments Unknown Sex and Gender Information Value Date Recorded Sex Assigned at Not on file Legal Sex Female 4:28 AM EST Gender Identity Not on file Sexual Orientation Not on file Last Filed Vital Signs Vital Sign Reading Time Taken Comments Blood Pressure 149/74 05/10/2023 8:21 AM EST Pulse 86 05/10/2023 8:21 AM EST Temperature 36.7 C (98 F) 05/10/2023 8:21 AM EST Respiratory Rate 13 05/10/2023 8:21 AM EST Oxygen Saturation 100% 05/10/2023 8:21 AM EST Inhaled Oxygen Concentration - - Weight - - Height - - Body Mass Index - - Plan of Treatment Health Maintenance Due Date Last Done Comments Adult Td,Tdap Booster 1980 DEPRESSION SCREENING 1992 SMOKING Hx and SMOKELESS TOB ACCO SCREENING 1993 HEPATITIS C SCREENING 1998 HIV ONE-TIME SCREENING (18-6 5 YEARS) 1998 PAP SMEAR 2001 MAMMOGRAM 2020 COVID-19 VACCINE (2023-2 5 season) 2023 HEPATITIS A VACCINES Aged Out No long er eligible based on patient's age to complete this topic HIB VACCINES Aged Out No longer eligi ble based on patient's age to complete this topic MENINGOCOCCAL VACCINES (ACWY) Aged Out No longer eligible based on patient's age to complete this topic MENINGOCOCCAL VACCINES (B) Aged Out N o longer eligible based on patient's age to complete this topic PNEUMOCOCCAL VACCINES (0-49 years) Aged Out No longer eligible based on patient's age to complete this topic Medical Devices Not on file Insurance C3 ACO C3 ACO C3 ACO C3 ACO [place] [place] [address] [place] [address] C3 ACO Care Teams Skein Yarn Dyer Helper Relationship Specialty Start Date End Date Genna Snow NP [address] [place] [phone] PCP - General Nurse Practitioner 05/10/23 Additional Source Comments The information contained in this document represents components of the legal health record. It is not the complete legal health record.[facility]
--- OUTSIDE RECORDS SUMMARY | 2024-11-22 10:07 | XMS_ITS | Clinical Summary ---
Author Organization [facility] Address [address] [place] [address] Care Team Providers Care Estimating Engineer Name Role Phone Genna Snow NP Primary Care Provider [phone] Allergies Active Allergy Reactions Criticality Noted Date [...] 69 12/17/2023 2:41 PM EDT Temperature 36.6 C (97.9 F) 12/17/2023 2:41 PM EDT Respiratory Rate 16 12/17/2023 2:41 PM EDT [...] Cancer Screening (Pap Smear) 2001 COVID-19 Vaccine (4 - 4-2 5 season) 2023 10/17/2021, 04/25/2021, 04/04/2021 DTap / Tdap / Td (2 - Td or Tdap) 08/23/2024 08/23/2014 Influenza Vaccine (#1) 2024 2, 03/26/2021 Pneumococcal Vaccine Aged Out No long er eligible based on patient's age to complete this topic RSV Ped < 20 months Aged Out No longe r eligible based on patient's age to complete this topic Care Teams Estimating Engineer Relationship Specialty Start Date End Date Genna Snow NP [address] [place] [phone] PCP - General Nurse Practitioner 01/30/22
[2024-11-22 11:40] LABS: Hematocrit 36.2 % (37.0-47.0); Hemoglobin 11.1 g/dl (12.0-16.0)
[2024-11-22 12:21] LABS: Iron 29 mcg/dL (30-160); Percent Iron Saturation 10 % (15-50); Total Iron Binding Capacity 298 mcg/dL (228-428); Unsaturated Iron Binding 269 ug/dL
[2024-11-22 12:26] LABS: Ferritin 9 ng/mL (10-250)
[2024-11-23 03:23] LABS: Follicle Stimulating Hormone 10.5 mIU/mL
[2024-11-28 13:58] LABS: Testosterone, Free 2.3 pg/mL (0.1-6.4)
== END 2024-11-22 09:19 | disposition home or self-care (01) ==
LOC: HO.HHCL 09:18
PROVIDERS: PCP Nurse Practitioner Primary Care; Visit Provider Nurse Practitioner Primary Care
DX: L65.9 Nonscarring hair loss, unspecified (principal); N92.6 Irregular menstruation, unspecified
CPT/HCPCS: 36415; 82728; 83001; 83540; 84402; 84403; 84443; 85014; 85018

== ENCOUNTER 2024-12-14 13:24 | Outpatient (AMB) | payer MEDICAID, SELFPAY ==
[2024-12-14 13:40] VITALS: BP 132/68; PULSE 69; O2SAT 99; BMI 33.2
--- NOTE | 2024-12-14 13:40 | A.OFFVIS_ITS ---
Vital Signs 12/14/24 13:40 Height 5 ft 5 in Weight 199 lb 4 oz BMI 33.2 BP 132/68 Blood Pressure Location Lt brachial Position Sitting Pulse 69 Pulse Source Pulse Oximeter Pulse Oximetry (%) 99 Oxygen Delivery Method Room Air Intake Visit Reasons: Right Hip Bursa/FM Intake Note: Patient presents for right hip bursa and fibromyalgia follow up. Patient states hip is still hurting, worse when she does PT. Patient also complains of bilateral knee pain. Allergies No Known Allergies Allergy (Verified 12/14/24 13:44) HPI Comments Details: Patient is a 44-year-old female asthma, GERD, peripheral neuropathy of undetermined etiology, psoriasis and ?PsA here today for follow up Interval History: Patient last seen 09/04/2023 with Rachel Allen - not on any rheumatologic medications - following up - had received left trochanteric bursa injection with relief and was requesting another 1 which was given - there was concern for possible psoriatic arthritis given enthesitis Achilles but no evidence of any active synovitis or need for immunosuppression at that time Today - not on any rheumatologic medications - Complaining of left outer hip pain - Went to PT but this was not helpful - Would like another injection today Rheumatologic History: Initial History: Ms. Brower no 42-year-old female referred for evaluation of left ankle enthesopathy. Patient reports she had ankle pain and was evaluated by her PCP who took an x-ray and they sent her to Rheumatology for further workup. She also reports left-sided pain to her gluteal muscle. Additionally, a time left lateral thigh to feels numb with a weird pain. It sometimes wakes her up at night and she has to constantly turning to change sides during sleep. The pain travels down from her gluteal muscle to the side of her knees at times. She reports that sometimes her left leg feels weak like it is going to fall out from under her. She takes Aleve that sometimes help but the last 2-3 hours and Tylenol is of no effect Patient denies Raynaud's phenomenon, butterfly rash on face ; denies photosensitivity - getting sick or developing a rash from being out in the sun; denies blood or froth in urine; patient denies hx of SOB, chest pain. Patient denies hx of Carditis or Pleuritis. The patient reports never have had o take aspirin or a blood thinner during the successful pregnancies. Denies fevers, excessive fatigue, unexplained weight-loss or weight-gain, Denies: thinning hair or hair loss Denies: dry, itchy eyes, red burning eyes needing steroids to treat. She does report that she was told she has increased pressure in her high and possible glaucoma in the right. Patient denied dry mouth, mouth sores or ulcers; nose bleed; ringing in the ear, She has abdominal pain to right upper quadrant but workup was unrevealing and she was put on a PPI. Patient has bouts of constipation that can last up to 4 days. However, she denies blood or mucous in stool; nausea, vomiting and diarrhea , difficulty swallowing, heartburn. Colonoscopy 1 year ago at [facility] - no concerns per patient. Denies morning stiffness lasting more than 10 mins. She deines red, warm swollen joints. Denies dactylitis, uveitis, plantar fasciitis, low back pain, elbow tendinitis. Current Rheumatology Medication(s): [facility] Medical History (Updated 11/07/23 @ 14:28 by Vicenta Martinez APRN, HOSIERY MATER) Trochanteric bursitis, left hip Piriformis syndrome of left side Left sciatic nerve pain Plantar fasciitis of left foot Psoriasis Enthesopathy of ankle Hyperlipidemia, unspecified Pseudotumor cerebri Iron deficiency anemia due to chronic blood loss Cardiovascular event risk Depressive disorder Asthma Family History Maternal Aunt Hx of autoimmune disorder Mother Arthritis Maternal Grandmother Arthritis Social History Household Members: Significant Other Alcohol intake: current Alcohol intake frequency: holidays/special occasions only Patient Tobacco Use Status: Former Tobacco user Years Smoked: 5 Substance Use Type: Marijuana Current occupational status: unemployed Review of Systems Const Details: Review of Systems Constitutional: Denies fever, chills, weight loss ENT: Denies vision changes, eye pain or eye redness, dental caries, dry mouth GI: Denies nausea, vomiting, diarrhea, abdominal pain, change in BM Pulm: Denies SOB, BROUSSARD, hemoptysis, wheezing Cards: Denies chest pain, palpitations Skin: Denies Raynaud's, rash, nail changes, photosensitivity, PRESSURIZATION MECHANIC: Denies headaches, weakness, paresthesias, recurrent falls MSK: as per HPI All other systems reviewed and are unremarkable except noted above Physical Exam Exam Exam: Vital signs reviewed Physical Examination CONSTITUITIONAL Patient alert and cooperative. Well appearing and in no apparent painful distress MSK Hands * Right Hand: Able to make a fist. No swelling or tenderness to palpation of these joints. No deformities noted. * Left Hand: Able to make a fist. No swelling or tenderness to palpation of these joints. No deformities noted. Wrists * Right Wrist: Full ROM. 70 degrees of wrist flexion, 80 degrees of wrist extension. No swelling or TTP * Left Wrist: Full ROM. 70 degrees of wrist flexion, 80 degrees of wrist extension. No swelling or TTP Elbows * Right Elbow: Full ROM. No swelling or TTP. No TTP of the medial and lateral epicondyles * Left Elbow: Full ROM. No swelling or TTP. No TTP of the medial and lateral epicondyles Shoulders * Right shoulder: Full ROM. No swelling noted. No TTP of the AC joint, subacromial bursa or posterior shoulder * Left shoulder: Full ROM but pain at the extremes of range. No swelling noted. No TTP of the AC joint, subacromial bursa or posterior shoulder. There is crepitation felt on the posterior shoulder Hip bursa: Tenderness to palpation bilaterally L>R Knees * Right knee: Full ROM. No swelling noted. No TTP of the knee joint lie or pes anserine bursa * Left knee: Full ROM. No swelling noted. No TTP of the knee joint lie or pes anserine bursa. Ankles * Right ankle: Good ankle dorsiflexion and plantar flexion. No swelling. No TTP of the ankle joint * Left ankle: Good ankle dorsiflexion and plantar flexion. No swelling. No TTP of the ankle joint Feet * Right foot: Negative squeeze test * Left foot: Negative squeeze test. TTP of the plantar surface Tender points? * No tenderness to palpation of the bilateral trapezius, supraspinatus, anterior costochondral junctions, bilateral suboccipital muscle insertions SKIN No rashes Vital Signs: Last Vital Signs Pulse 69 12/14/24 13:40 BP 132/68 12/14/24 13:40 Pulse Ox 99 12/14/24 13:40 Oxygen Delivery Method Room Air 12/14/24 13:40 BMI result Body Mass Index 33.2 Office Procedures AMB Joint Injection/Aspiration Joint Injection/Aspiration Details: Procedure was explained to the patient and informed consent was obtained. ? Risks associated with the procedure were discussed with the patient including but not limited to bleeding, infection, drug reactions and reactions to the topical anesthetic. Patient made aware of signs to look out for infectious complications. The area of interest was identified and confirmed with patient. ?This was subsequently cleaned with chlorhexidine x 2. ? The area was then anesthetized using ethyl chloride spray. 40 mg Kenalog with 1 cc 1% lidocaine was injected without issue. ?Minimal to no bleeding. ?Patient tolerated procedure. Primary Site: other (left trochanteric bursa) Prep: site was prepped using aseptic technique and ethochloride spray was applied Injected: 40 mg of, Kenalog, with 1 mL of and 1% plain lidocaine Procedure: The patient tolerated the procedure well Coding 00320 - Glenohumeral/Tronchanteric Bursa/Intraarticular Procedure code (CPT) selection complete Office Meds lidocaine (PF) 10 mg/mL (1 %) injection solution Performing Provider: Praveena Shipley MD Performing Location: [facility] Administered by: Jeffrey Reid RN on 12/14/24 14:22 Dose Route Admin Location Dispensed Lot Number Expiration Date [facility] Volcanology Teacher 1 mL Infiltration left greater trochanter 2 mL [id number] 09/25/26 63 [phone] [employer] Total Dispensed Waste 2 mL 50 % Kenalog 40 mg/mL suspension for injection Performing Provider: Praveena Shipley MD Performing Location: [facility] Administered by: Jeffrey Reid RN on 12/14/24 14:22 Dose Route Admin Location Dispensed Lot Number Expiration Date [facility] Volcanology Teacher 40 mg intrabursal left trochanteric bursa 1 mL [id number] 03/27/26 0 [phone] [employer]IKMA [employer]ARMACE[employer] Total Dispensed Waste 1 mL 0 % Results Reviewed Results Reviewed: Laboratory Tests 04/01/23 11/18/23 14:24 10:38 WBC 8.0 RBC 4.03 L Hgb 11.0 L Hct 34.7 L Plt Count 251 ESR 9 Sodium 141 Potassium 3.8 Chloride 109 H Carbon Dioxide 23 BUN 13 Creatinine 0.95 C-Reactive Protein 0.73 H Assessment & Plan Assessment & Plan (1) Low back pain: Code(s): M54.50 - Low back pain, unspecified Qualifiers: Chronicity: chronic Back pain laterality: left Sciatica presence: without sciatica Qualified Code(s): M54.50 - Low back pain, unspecified; G89.29 - Other chronic pain Plan: #Low back pain Patient is a 44 year old female with PsO here today for follow up Complaining of low back pain No evidence of synovitis or dactylitis No concern for PsA at this time Plan - Refer to PT - RTC 4 months for re-evaluation (2) Trochanteric bursitis, left hip: Code(s): M70.62 - Trochanteric bursitis, left hip Category: Medical Plan: #Left trochanteric bursitis Patient with c/o left outer hip pain consistent with left trochanteric bursitis Given steroid injection today Also gave trigger point injection in the left buttock Plan I spent 20 minutes reviewing the record and labs, taking a history, examining the patient, discussing the treatment plan and documenting in the medical record Orders: Orders PT Evaluation and Treatment Today G89.29 - Other chronic pain, M54.50 - Low back pain, unspecified AMB Joint Injection/Aspiration Today M70.62 - Trochanteric bursitis, left hip Coding Level of Care Code Est Pt Level 3 (68685) Diagnoses Chronic left-sided low back pain without sciatica M54.50; G89.29 Chronicity: chronic Back pain laterality: left Sciatica presence: without sciatica Trochanteric bursitis, left hip M70.62 CPT Codes Coding - Joint 7: 39368 - Glenohumeral/Tronchanteric Bursa/Intraarticular ([id number])
--- OUTSIDE RECORDS SUMMARY | 2024-12-14 14:38 | XMS_ITS | Encounter Summary ---
Author Organization [employer] Address [address] [place] [address] Care Team Providers Care Risk Analyst Name Role Phone Genna Snow Primary Care Provider [phone] Encounter Details Date Type Department Care Team (Late st Contact Info) Description 08/25/2024 Orders Only [facility] CHC MED & PEDS [address] [place] [address] Josey Gray Social History Tobacco Use Types [...] with others, in a hotel, in a intermediate, living outside on the street, on a beach, in a car, or in a park 06/25/[address] you li ve. Do you have problems with any of the following? Mold;Lead [place] or Pipes;Water leaks 06/25/2024 Food Insecurity Answer [...] Upcoming Encounters Date Type Department Care Team ([facility] st Contact Info) Description 01/28/2025 9:00 AM EDT Office Visit [facility] OPTOMETRY [address] [place] [address] Elizabeth Phillip, OD [address] [place] [address] documented as of this encounter Procedures Procedure [...] documented as of this encounter Care Teams Risk Analyst Relationship Specialty Start Date End Date Genna Snow ANP [address] [place] [address] PCP - General Family Medicine 03/26/21 Daniela Joy RN Care Manager 01/22/23 Jeramie Damon TelemarketerSplash Line Operator 10/28/23 documented as of this encounter
--- OUTSIDE RECORDS SUMMARY | 2024-12-14 14:38 | XMS_ITS | Clinical Summary ---
Author Organization [facility] Address [address] [place] [address] Phone Care Team Providers Care Information Technology Administrator Name Role Phone Gwendolyn Genna SALINAS Primary Care Provider [phone] Allergies No known active allergies Medications No [...] ACO C3 ACO C3 ACO C[address] [place] [address] [address] C3 ACO Care Teams Information Technology Administrator Relationship Specialty Start Date End Date Genna Snow ANP [address] [place] [id number] PCP - General Nurse Practitioner 05/10/23 Additional Source Comments The information contained in this document represents components of the legal health record. It is not the complete legal health record.[facility]
--- OUTSIDE RECORDS SUMMARY | 2024-12-14 14:38 | XMS_ITS | Clinical Summary ---
Author Organization [facility] Address [address] [place] [address] Care Team Providers Care Tile Molder Name Role Phone Genna Snow NP Primary Care Provider [phone] Allergies Active Allergy Reactions Criticality Noted Date [...] age to complete this topic Care Teams Tile Molder Relationship Specialty Start Date End Date Genna Snow NP [address] [place] [address] PCP - General Nurse Practitioner 01/30/22
--- OUTSIDE RECORDS SUMMARY | 2024-12-14 14:38 | XMS_ITS | Clinical Summary ---
Author Organization [facility] Address [address] [place] [address] Phone Care Team Providers Care Coverstitch Machine Operator Name Role Phone Genna Snow NP Primary Care Provider [phone] Allergies No known active allergies Medications ibuprofen [...] 08/29/2016 Overview (02/23/2024): Seeing urology Bipolar disorder ([facility] V24, [facility] V28) 07/28 Gestational diabetes mellitus 08/23/2014 Encounters Date Type Department Care Team Description 10/25/2024 Telephone [facility] Hematology Oncology [address] [place] [phone] Olivia Golden [place] 09/13/2024 1:15 PM EDT Office Visit Orthopedic Surgery [facility] [address] [phone] Jacob Lim, DPM Plantar fascial fibromatosis (Primary Dx); Follow-up exam; Equinus contracture of ankle; Sciatica of left side; Calcaneal spur of left foot 09/13/2024 10:30 AM EDT Office Visit [facility] Hematology Oncology [address] [place] [phone] Savannah Rangel DO Iron deficiency anemia due to chronic blood loss (Primary Dx); Menorrhagia with irregular cycle from Last 3 Months Immunizations Name Administration Dates Next Due PPD Test 08/23/2014 Dragonfly List (ages 12 & older) MALLY S-CoV-2 COVID-19, [...] Description 02/14/2025 10:45 AM EDT Office Visit [facility] Hematology Oncology [address] [place] [phone] Savannah Rangel, [address] [place] [address] Health Maintenance Due Date Last Done Comments [...] CBC auto differential (09/13/2024 11:01 AM EDT) [facility] WBC 9.5 4.8 - 10.8 K/mcL LAB HEMETOLOGY METHOD 09/13/2024 11:59 AM [facility] RBC 4.60 3.80 - 4.80 M/mcL LAB HEMETOLOGY METHOD 09/13/2024 11:59 AM [facility] Hemoglobin 12.5 11.5 - 16.0 g/dL LAB HEMETOLOGY METHOD 09/13/2024 11:59 AM [facility] Hematocrit 38.9 35.0 - 47.0 % LAB HEMETOLOGY METHOD 09/13/2024 11:59 AM [facility] MCV 85.5 79.0 - 98.0 FL LAB HEMETOLOGY METHOD 09/13/2024 11:59 AM [facility] MCH 27.5 27.0 - 32.0 pcg LAB HEMETOLOGY METHOD 09/13/2024 11:59 AM [facility] MCHC 32.1 32.0 - 37.0 g/dL LAB HEMETOLOGY METHOD 09/13/2024 11:59 AM [facility] RDW 14.6 11.0 - 15.0 % LAB HEMETOLOGY METHOD 09/13/2024 11:59 AM [facility] Platelets 274 130 - 400 K/mcL LAB HEMETOLOGY METHOD 09/13/2024 11:59 AM [facility] MPV 10.0 7.0 - 11.0 FL LAB HEMETOLOGY METHOD 09/13[facility]24 [facility] NRBC 0.0 <1.0 % LAB HEMETOLOGY METHOD 09/13/2024 11:59 AM [facility] NRBC Absolute 0.00 <0.10 K/mcL LAB HEMETOLOGY METHOD 09/13/2024 11:59 AM [facility] Neutrophils Relative 56.8 % LAB HEMETOLOGY METHOD 09/13/2024 11:59 AM [facility] Lymphocytes Relative 34.6 % LAB HEMETOLOGY METHOD 09/13/2024 11:59 AM [facility] Monocytes Relative 6.3 % LAB HEMETOLOGY METHOD 09/13/2024 11:59 AM [facility] Eosinophils Relative 1.5 % LAB HEMETOLOGY METHOD 09/13/2024 11:59 AM [facility] Basophils Relative 0.2 % LAB HEMETOLOGY METHOD 09/13/2024 11:59 AM [facility] Immature Granulocytes Relative 0.6 % LAB HEMETOLOGY METHOD 09/13/2024 11:59 AM [facility] Neutrophils Absolute 5.41 1.50 - 7.00 K/mcL LAB HEMETOLOGY METHOD 09/13/2024 11:59 AM [facility] Lymphocytes Absolute 3.30 1.00 - 5.00 K/mcL LAB HEMETOLOGY METHOD 09/13/2024 11:59 AM [facility] Monocytes Absolute 0.60 0.20 - 1.00 K/mcL LAB HEMETOLOGY METHOD 09/13/2024 11:59 AM [facility] Eosinophils Absolute 0.14 0.00 - 0.50 K/mcL LAB HEMETOLOGY METHOD 09/13/2024 11:59 AM [facility] Basophils Absolute 0.02 0.00 - 0.20 K/mcL LAB HEMETOLOGY METHOD 09/13/2024 11:59 AM [facility] Immature Granulocytes Absolute 0.06(H) 0.00 - 0.03 K/mcL LAB HEMETOLOGY METHOD 09/13/2024 11:59 AM [facility] Blood Venous blood specimen / Unknown Venipuncture / Unknown 09/13/2024 11:01 AM EDT 09/13/2024 11:13 AM EDT Earnestine MCLAIN LAB BLOOD ORDERABLES Final Re sult Performing Organization Address [facility]/ZIP Co de Phone Number [facility] [address] [place] [address], [place] [phone] * (ABNORMAL) Iron and TIBC (09/13/2024 11:01 AM EDT) Iron 33(L) 40 - 150 mcg/dL LAB CHEMISTRY METHOD 09/13/2024 12:34 PM EDT [facility] TIBC 301 250 - 450 mcg/dL LAB CHEMISTRY METHOD 09/13/2024 12:34 PM EDT [facility] Iron Saturation 11(L) 15 - 50 % LAB CHEMISTRY METHOD 09/13/2024 12:34 PM EDT [facility] Blood Venous blood specimen / Unknown Venipuncture / Unknown 09/13/2024 11:01 AM EDT 09/13/2024 11:13 AM EDT Earnestine MCLAIN LAB BLOOD ORDERABLES Final Re sult Performing Organization Address [facility]/ZIP Co de Phone Number [facility] [address] [place] [address], [place] [phone] * Ferritin (09/13/2024 11:01 AM EDT) Ferritin 14 8 - 252 ng/mL LAB CHEMISTRY METHOD 09/13/2024 12:34 PM EDT [facility] Blood Venous blood specimen / Unknown Venipuncture / Unknown 09/13/2024 11:01 AM EDT 09/13/2024 11:13 AM EDT us Earnestine MCLAIN LAB BLOOD ORDERABLES Final Re sult Performing Organization Address City[facility]/ZIP Co de Phone Number [facility] [address] [place] [phone], * Pap smear (04/22/2024 12:00 AM EST) Interpretation Negative for intraepithelial lesion or malignancy 04/26/2024 4:26 PM [facility] General Categorization Negative 04/26/2024 4:26 PM [facility] Other Findings Shift in ramin suggestive of bacterial vaginosis 04/26/2024 4:26 PM [facility] Specimen Adequacy Satisfactory for evaluation, endocervical/valente sformation zone component absent 04/26/2024 4:26 PM [facility] Pap Methodology Liquid Based Pap Test 04/26/2024 4:26 PM [facility] Disclaimer The Pap test is a screening test which carries an inherent false negative rate. These test results should be correlated with the patient's clinical findings and history. This Pap test was processed using an automated screening system. Technical cytopathology services provided by [facility], at [address] [place] [id number] (CLIA # [id number]/Penny Ozuna MD, Voice And Data Technician.) 04/26/2024 4:26 PM [facility] Console Pap Interpretation Reported 04/26/2024 4:26 PM [facility] Brushing/Spatula Cervix uteri structure / Unknown 04/22/2024 04/23/2024 7:04 AM EST Bertha Grewal MD LAB CYTOLOGY ORDERABLES Final Result [facility] [address] [place] [address], * MG Mammo Digital Screening w Toribio [...] Blood Venous blood specimen / Unknown Result [facility] Historical Provider LAB BLOOD ORDERABLES Shelli l Result * HIV Screening (12/21/2015) HIV Screening Abstracted Result [facility] Historical Provider HEALTH MAINTENANCE Final Result * Hepatitis C Screening (12/21/2015) Pathologist [facility] Hepatitis C Screening Abstracted Result [facility] Historical Provider HEALTH MAINTENANCE Final Result from Last 3 Months or Most Recently Relevant to Health Maintenance Insurance MEDICAID - [place] Care Teams Coverstitch Machine Operator Relationship Specialty Start Date End Date Genna Snow NP [address] [place] [phone] PCP - General 01/30/22
== END 2024-12-14 14:24 | disposition home or self-care (01) ==
LOC: HO.RHES 13:24
PROVIDERS: PCP Nurse Practitioner Primary Care; Visit Provider Student in an Organized Health Care Education/Training Program
DX: M54.50 Low back pain, unspecified (principal); G89.29 Other chronic pain; M70.62 Trochanteric bursitis, left hip
CPT/HCPCS: 20610; 99213

== ENCOUNTER → 2024-12-14 13:24 | Outpatient (BNVA) | payer MEDICAID, SELFPAY | PROVIDERS: PCP Nurse Practitioner Primary Care; Visit Provider Student in an Organized Health Care Education/Training Program | DX: M70.62 Trochanteric bursitis, left hip (principal); M54.50 Low back pain, unspecified; G89.29 Other chronic pain | CPT/HCPCS: 20610; 99212; J2003; J3300 ==

== ENCOUNTER 2025-01-28 10:01 | Outpatient (REF) | payer MEDICAID, SELFPAY ==
--- OUTSIDE RECORDS SUMMARY | 2025-01-28 09:00 | XMS_ITS | Encounter Summary ---
Author Organization [employer] Address [address] [place] [address] Care Team Providers Care Airport Manager Name Role Phone Genna Snow Primary Care Provider [phone] Encounter Details Date Type Department Care Team (Late st Contact Info) Description 01/28/2025 9:00 AM EDT Office Visit [facility] OPTOMETRY [address] [place], [place] [phone] Kenji, Elizabeth, OD [address] [place], [place] [phone] Proptosis (Primary Dx) Social History Tobacco Use Types Packs/Day Years [...] with others, in a hotel, in a care home, living outside on the street, on a beach, in a car, or in a park 06/25/[address] you li ve. Do you have problems with any of the following? Mold;Lead [place] or Pipes;Water leaks 06/25/2024 Food Insecurity Answer [...] Care Team (Late st Contact Info) Description 02/22/2025 9:30 AM EDT Office Visit [facility] MEDICINE [address] [place], [place] [phone] Genna Snow ANP [address] [place], [place] [phone] Scheduled Orders Name Type Priority Associated Diagnoses Orde r Schedule Thyroid peroxidase antibody Lab Routine Proptosis Expected: 01/28/2025 (Approximate), Expires: 01/28/2026 Thyroid stimulating immunoglobulin Lab Routine Proptosis Expected: 01/28/2025 (Approximate), Expires: 01/28/2026 T3, Total Lab Routine Proptosis Expected: 01/28/2025 (Approximate), Expires: 01/28/2026 T4, free Lab Routine Proptosis Expected: 01/28/2025 (Approximate), Expires: 01/28/2026 T3, Free Lab Routine Proptosis Expected: 01/28/2025 (Approximate), Expires: 01/28/2026 T4 (Thyroxine), Total Lab Routine Proptosis Expected: 01/28/2025 (Approximate), Expires: 01/28/2026 T3 Uptake Lab Routine Proptosis Expected: 01/28/2025 (Approximate), Expires: 01/28/2026 TSH Lab Routine Proptosis Expected: 01/28/2025 (Approximate), Expires: 01/28/2026 documented as of this encounter Visit Diagnoses Diagnosis Proptosis- Primary Unspecified exophthalmos documented in this encounter Additional Health Concerns Assessment Noted Time PHQ-9 Depression Total Score: 21 025 3:43 PM EST documented as of this encounter Care Teams Airport Manager Relationship Specialty Start Date End Date Genna Snow ANP [address] [place] [phone] PCP - General Family Medicine 03/26/21 Daniela Joy core winder 01/22/23 Jeramie Damon Corporate PilotMachinist Apprentice 10/28/23 documented as of this encounter
--- OUTSIDE RECORDS SUMMARY | 2025-01-28 10:45 | XMS_ITS | Encounter Summary ---
Author Organization [employer] Address [address] [facility] [address] 7t [place] [address] Care Team Providers Care Payable Processor Name Role Phone Genna Snow Primary Care Provider [phone] Encounter Details Date Type Department Care Team (Late st Contact Info) Description 08/25/2024 Orders Only [facility] MED & PEDS [address] [place] [address] Josey Gray Social History Tobacco Use Types [...] with others, in a hotel, in a skilled nursing, living outside on the street, on a beach, in a car, or in a park 06/25/[address] you li ve. Do you have problems with any of the following? Mold;Lead [place] or Pipes;Water leaks 06/25/2024 Food Insecurity Answer [...] Upcoming Encounters Date Type Department Care Team ([facility] st Contact Info) Description 02/22/2025 9:30 AM EDT Office Visit [facility] MEDICINE [address] [place] [address] Genna Snow ANP 230 [place] [address] documented as of this encounter Procedures Procedure [...] documented as of this encounter Care Teams Payable Processor Relationship Specialty Start Date End Date Genna Snow ANP [address] [place] [address] PCP - General Family Medicine 03/26/21 Daniela Joy project manager/team coach 01/22/23 Jeramie Damon Director Of Research And DevelopmentJoint Finisher 10/28/23 documented as of this encounter
--- OUTSIDE RECORDS SUMMARY | 2025-01-28 10:45 | XMS_ITS | Encounter Summary ---
Author Organization [employer] Address [address] [facility] 7t [place] [address] Care Team Providers Care Shipwright Name Role Phone Genna Snow Primary Care Provider [phone] Reason for Visit * Reason Onset Date Comments Med Refill 10/12/2024 Encounter Details Date Type Department Care Team ([facility] st Contact Info) Description 10/12/2024 Refill [facility] MEDICINE 230 [place], [place] [phone] Genna Snow ANP 230 [place], [place] [phone] Heartburn Social History Tobacco Use Types Packs/Day [...] with others, in a hotel, in a longterm, living outside on the street, on a beach, in a car, or in a park 06/25/[address] you li ve. Do you have problems with any of the following? Mold;Lead [place] or Pipes;Water leaks 06/25/2024 Food Insecurity Answer [...] Description 02/22/2025 9:30 AM EDT Office Visit [facility] MEDICINE 230 [place] [address] Genna Snow ANP [address] [place] [address] documented as of this encounter Visit Diagnoses Diagnosis Heartburn documented in this encounter Additional Health Concerns Assessment Noted Time PHQ-9 Depression Total Score: 21 025 3:43 PM EST documented as of this encounter Care Teams Shipwright Relationship Specialty Start Date End Date Genna Snow ANP [address] [place] [address] PCP - General Family Medicine 03/26/21 Daniela Joy RN Care Manager 01/22/23 Jeramie Damon Mat SewerRn Women Services 10/28/23 documented as of this encounter
--- OUTSIDE RECORDS SUMMARY | 2025-01-28 10:45 | XMS_ITS | Encounter Summary ---
Author Organization [employer] Address [address] [facility] 7t [place] [address] Care Team Providers Care Office Equipment Technician Name Role Phone Genna Snow Primary Care Provider [phone] Reason for Visit * Reason Onset Date Comments Med Refill 10/11/2024 Encounter Details Date Type Department Care Team ([facility] st Contact Info) Description 10/11/2024 Refill [facility] MEDICINE 230 [place], [place] [phone] Genna Snow ANP 230 [place], [place] [phone] Class 2 severe obesity with serious comorbidity [...] with others, in a hotel, in a assisted, living outside on the street, on a beach, in a car, or in a park 06/25/[address] you li ve. Do you have problems with any of the following? Mold;Lead [place] or Pipes;Water leaks 06/25/2024 Food Insecurity Answer [...] Description 02/22/2025 9:30 AM EDT Office Visit [facility] MEDICINE [address] [place] [address] Genna Snow ANP [address] [place] [address] documented as of this encounter Visit Diagnoses Diagnosis Class 2 severe obesity with serious comorbidity and body mass index (BMI) of 36.0 to 36.9 in adult, unspecified obesity type documented in this encounter Additional Health Concerns Assessment Noted Time PHQ-9 Depression Total Score: 21 025 3:43 PM EST documented as of this encounter Care Teams Office Equipment Technician Relationship Specialty Start Date End Date Genna Snow ANP [address] [place] [address] PCP - General Family Medicine 03/26/21 Daniela Joy RN Care Manager 01/22/23 Jeramie Damon Air Quality ChemistTraffic Workforce Representative 10/28/23 documented as of this encounter
--- OUTSIDE RECORDS SUMMARY | 2025-01-28 10:46 | XMS_ITS | Encounter Summary ---
Author Organization [employer] Address 75 [facility] 7t [place] [address] Care Team Providers Care Multi Craft Maintenance Technician Name Role Phone Genna Snow Primary Care Provider [phone] Reason for Visit * Reason Comments Med Refill Encounter Details Date Type Department Care Team ([facility] st Contact Info) Description 06/19/2024 Refill [facility] MEDICINE 230 [place], [place] [phone] Genna Snow ANP 230 [place], [place] [phone] Class 2 obesity with body mass index [...] Description 02/22/2025 9:30 AM EDT Office Visit [facility] MEDICINE [address] [place] [address] Genna Snow ANP [address] [place] [address] documented as of this encounter Visit Diagnoses Diagnosis Class 2 obesity with body mass index (BMI) of 38.0 to 38.9 in adult, unspecified obesity type, unspecified whether serious comorbidity present documented in this encounter Additional Health Concerns Assessment Noted Time PHQ-9 Depression Total Score: 19 024 12:50 PM EDT documented as of this encounter Care Teams Multi Craft Maintenance Technician Relationship Specialty Start Date End Date Genna Snow ANP [address] [place] [address] PCP - General Family Medicine 03/26/21 Daniela Joy RN Care Manager 01/22/23 Jeramie Damon Energy Conservation DirectorRn Medication 10/28/23 documented as of this encounter
--- OUTSIDE RECORDS SUMMARY | 2025-01-28 10:46 | XMS_ITS | Encounter Summary ---
Author Organization [employer] Address 75 [facility] 7t [place] [address] Care Team Providers Care Client Support Associate Name Role Phone Genna Snow Primary Care Provider [phone] Reason for Visit * Reason Onset Date Comments Nurse Triage 06/09/2024 Encounter Details Date Type Department Care Team ([facility] st Contact Info) Description 06/09/2024 Telephone [facility] MEDICINE 230 [place], [place] [phone] Genna Snow ANP 230 [place], [place] [phone] Nurse Triage Social History Tobacco Use Types [...] Reason: Trouble walking Please contact pt at [phone]. documented in this encounter Plan of Treatment Upcoming Encounters Date Type Department Care Team ([facility] st Contact Info) Description 02/22/2025 9:30 AM EDT Office Visit [facility] MEDICINE 230 [place] [address] Genna Snow ANP 230 [place] [address] documented as of this encounter Visit Diagnoses Not on filedocumented in this encounter Additional Health Concerns Assessment Noted Time PHQ-9 Depression Total Score: 19 024 12:50 PM EDT documented as of this encounter Care Teams Client Support Associate Relationship Specialty Start Date End Date Genna Snow ANP 230 [place] [address] PCP - General Family Medicine 03/26/21 Daniela Joy events specialist 01/22/23 Jeramie Damon Brickmason ContractorScalp Treatment Operator 10/28/23 documented as of this encounter
--- OUTSIDE RECORDS SUMMARY | 2025-01-28 10:46 | XMS_ITS | Encounter Summary ---
Author Organization [employer] Address [address] [facility] 7t [place] [address] Care Team Providers Care Operator Engineer Name Role Phone Genna Snow Primary Care Provider [phone] Reason for Visit * Reason Comments Med Refill Encounter Details Date Type Department Care Team ([facility] st Contact Info) Description 12/30/2023 Refill [facility] MEDICINE 230 [place], [place] [phone] Genna Snow ANP 230 [place], [place] [phone] Depressive disorder; Heartburn Social History Tobacco Use [...] Description 02/22/2025 9:30 AM EDT Office Visit [facility] MEDICINE [address] [place] [address] Genna Snow ANP 230 [place] [address] documented as of this encounter Visit Diagnoses Diagnosis Depressive disorder Depressive disorder, not elsewhere classified Heartburn documented in this encounter Additional Health Concerns Assessment Noted Time PHQ-9 Depression Total Score: 19 024 12:50 PM EDT documented as of this encounter Care Teams Operator Engineer Relationship Specialty Start Date End Date Genna Snow ANP [address] [place] [address] PCP - General Family Medicine 03/26/21 Daniela Joy RN Care Manager 01/22/23 Jeramie Damon Upholstery CleanerExtruder 10/28/23 documented as of this encounter
--- OUTSIDE RECORDS SUMMARY | 2025-01-28 10:46 | XMS_ITS | Clinical Summary ---
Author Organization [facility] Address [address] [place] [address] Care Team Providers Care Health Center Assistant Name Role Phone Genna Snow NP Primary Care Provider [phone] Allergies Active Allergy Reactions Criticality Noted Date [...] 1998 Cervical Cancer Screening (Pap Smear) 2001 DTap / Tdap / Td (2 - Td or Tdap) 08/23/2024 08/23/2014 COVID-19 Vaccine (2024-2 6 season) 2024 10/17/2021, 04/25/2021, 04/04/2021 Influenza Vaccine (#1) 2024 , 03/26/2021 Pneumococcal Vaccine Aged Out No long er eligible based on patient's age to complete this topic RSV Ped < 20 months Aged Out No longe r eligible based on patient's age to complete this topic Care Teams Health Center Assistant Relationship Specialty Start Date End Date Genna Snow NP [address] [place] [address] PCP - General Nurse Practitioner 01/30/22
--- OUTSIDE RECORDS SUMMARY | 2025-01-28 10:46 | XMS_ITS | Encounter Summary ---
Author Organization [employer] Address [address] [facility] 7t [place] [address] Care Team Providers Care Supply Controller Name Role Phone Genna Snow Primary Care Provider Encounter Details Date Type Department Care Team (Latest Contact Info) Description 01/28/2025 Travel Social History Tobacco Use Types Packs/Day [...] with others, in a hotel, in a mcfp, living outside on the street, on a beach, in a car, or in a park 06/25/[address] you li ve. Do you have problems with any of the following? Mold;Lead [place] or Pipes;Water leaks 06/25/2024 Food Insecurity Answer [...] Description 02/22/2025 9:30 AM EDT Office Visit [facility] MEDICINE [address] [place] [address] Genna Snow ANP 230 [place] [address] documented as of this encounter Visit Diagnoses Not on filedocumented in this encounter Additional Health Concerns Assessment Noted Time PHQ-9 Depression Total Score: 21 025 3:43 PM EST documented as of this encounter Care Teams Supply Controller Relationship Specialty Start Date End Date Genna Snow ANP [address] [place] [address] PCP - General Family Medicine 03/26/21 Daniela Joy RN Care Manager 01/22/23 Jeramie Damon Internal Controls ManagerTruck Operator 10/28/23 documented as of this encounter
--- OUTSIDE RECORDS SUMMARY | 2025-01-28 10:46 | XMS_ITS | Encounter Summary ---
Author Organization [employer] Address [address] [facility] 7t [place] [address] Care Team Providers Care Call Box Wirer Name Role Phone Genna Snow Primary Care Provider [phone] Reason for Visit * Reason Comments Med Refill Encounter Details Date Type Department Care Team ([facility] st Contact Info) Description 11/07/2023 Refill [facility] MEDICINE 230 [place], [place] [phone] Genna Snow ANP 230 [place], [place] [phone] Depressive disorder Social History Tobacco Use Types [...] Description 02/22/2025 9:30 AM EDT Office Visit [facility] MEDICINE [address] [place] [address] Genna Snow ANP 230 [place] [address] documented as of this encounter Visit Diagnoses Diagnosis Depressive disorder Depressive disorder, not elsewhere classified documented in this encounter Additional Health Concerns Assessment Noted Time PHQ-9 Depression Total Score: 14 024 3:11 PM EDT documented as of this encounter Care Teams Call Box Wirer Relationship Specialty Start Date End Date Genna Snow ANP [address] [place] [address] PCP - General Family Medicine 03/26/21 Daniela Joy RN Care Manager 01/22/23 Jeramie Damon Java Application DeveloperBriquetter Operator 10/28/23 documented as of this encounter
--- OUTSIDE RECORDS SUMMARY | 2025-01-28 10:46 | XMS_ITS | Encounter Summary ---
Author Organization [employer] Address [address] [facility] 7t [place] [address] Care Team Providers Care Emulsion Operator Name Role Phone Genna Snow Primary Care Provider [phone] Reason for Visit * Reason Onset Date Comments Med Refill 01/17/2025 Encounter Details Date Type Department Care Team ([facility] st Contact Info) Description 01/17/[address] [facility] MEDICINE 230 [place], [place] [phone] Araceli Sinha MD 230 [place], [place] [phone] Class 2 severe obesity with serious comorbidity [...] with others, in a hotel, in a custodial, living outside on the street, on a beach, in a car, or in a park 06/25/[address] you li ve. Do you have problems with any of the following? Mold;Lead [place] or Pipes;Water leaks 06/25/2024 Food Insecurity Answer [...] Description 02/22/2025 9:30 AM EDT Office Visit [facility] MEDICINE [address] [place] [address] Genna Snow ANP [address] [place] [address] documented as of this encounter Visit Diagnoses Diagnosis Class 2 severe obesity with serious comorbidity and body mass index (BMI) of 36.0 to 36.9 in adult, unspecified obesity type documented in this encounter Additional Health Concerns Assessment Noted Time PHQ-9 Depression Total Score: 21 025 3:43 PM EST documented as of this encounter Care Teams Emulsion Operator Relationship Specialty Start Date End Date Genna Snow ANP [address] [place] [address] PCP - General Family Medicine 03/26/21 Daniela Joy RN Care Manager 01/22/23 Jeramie Damon Shearer HelperPre K Special Education Teacher 10/28/23 documented as of this encounter
--- OUTSIDE RECORDS SUMMARY | 2025-01-28 10:46 | XMS_ITS | Encounter Summary ---
Author Organization [facility] Address [address] [place] [address] Care Team Providers Care Body Finisher Name Role Phone GwendolynGenna Jackie GOMEZ Primary Care Provider [phone] Encounter Details Date Type Department Care Team (Latest Contact Info) Description 04/23/2024 Lab Requisition [facility] Main Lab [address] [facility] [place] [phone] Bertha Grewal MD 299 [facility] [address] [place] [phone] Unspecified abnormal cytological findings in specimens from [...] Description 02/14/2025 10:45 AM EDT Office Visit [facility] Hematology Oncology [address] [place] [phone] [place], [address] [place] [address] documented as of this encounter Procedures Procedure [...] Negative LAB MICROBIOLOGY METHOD 04/23/2024 1:37 PM [facility] Chlamydia, RNA Probe Negative Negative LAB MICROBIOLOGY METHOD 04/23/2024 1:37 PM [facility] Brushing/Spatula Cervix uteri structure / Unknown 04/22/2024 04/23/2024 7:04 AM EST us Bertha Grewal MD LAB CYTOLOGY ORDERABLES Final Result [facility] [address] [place] [address], * Pap smear (04/22/2024 12:00 AM EST) Interpretation Negative for intraepithelial lesion or malignancy 04/26/2024 4:26 PM EST [facility] General Categorization Negative 04/26/2024 4:26 PM [facility] Other Findings Shift in ramin suggestive of bacterial vaginosis 04/26/2024 4:26 PM [facility] Specimen Adequacy Satisfactory for evaluation, endocervical/valente sformation zone component absent 04/26/2024 4:26 PM EST [facility] Pap Methodology Liquid Based Pap Test 04/26/2024 4:26 PM EST [facility] Disclaimer The Pap test is a screening test which carries an inherent false negative rate. These test results should be correlated with the patient's clinical findings and history. This Pap test was processed using an automated screening system. Technical cytopathology services provided by [facility], at [address] [place] [address] (CLIA # [id number]/Penny Ozuna MD, [employer] Caretaker.) 04/26/2024 4:26 PM [facility] Console Pap Interpretation Reported 04/26/2024 4:26 PM [facility] Brushing/Spatula Cervix uteri structure / Unknown 04/22/2024 04/23/2024 7:04 AM EST us Bertha Grewal MD LAB CYTOLOGY ORDERABLES Final Result [facility] [address] [place] [address], documented in this encounter Visit Diagnoses Diagnosis Unspecified abnormal cytological findings in specimens from cervix uteri Encounter for gynecological examination (general) (routine) without abnormal findings documented in this encounter Care Teams Body Finisher Relationship Specialty Start Date End Date Gnena Snow NP [address] [place] [phone] PCP - General 01/30/22 documented as of this encounter
--- OUTSIDE RECORDS SUMMARY | 2025-01-28 10:46 | XMS_ITS | Encounter Summary ---
Author Organization [employer] Address 75 [facility] 7t [place] [address] Care Team Providers Care Assisted Living Assistant Name Role Phone Genna Snow Primary Care Provider [phone] Reason for Visit * Reason Onset Date Comments Med Refill 09/06/2024 Encounter Details Date Type Department Care Team ([facility] st Contact Info) Description 09/06/2024 Refill [facility]INE 230 [place], [place] [phone] Genna Snow ANP 230 [place], [place] [phone] Class 2 severe obesity with serious comorbidity [...] with others, in a hotel, in a detention, living outside on the street, on a beach, in a car, or in a park 06/25/[address] you li ve. Do you have problems with any of the following? Mold;Lead [place] or Pipes;Water leaks 06/25/2024 Food Insecurity Answer [...] 9:30 AM EDT Office Visit [facility]INE [address] [place] [address] Genna Snow ANP [address] [place] [address] documented as of this encounter Visit Diagnoses Diagnosis Class 2 severe obesity with serious comorbidity and body mass index (BMI) of 36.0 to 36.9 in adult, unspecified obesity type documented in this encounter Additional Health Concerns Assessment Noted Time PHQ-9 Depression Total Score: 21 025 3:43 PM EST documented as of this encounter Care Teams Assisted Living Assistant Relationship Specialty Start Date End Date Genna Snow ANP [address] [place] [address] PCP - General Family Medicine 03/26/21 Daniela Joy RN Care Manager 01/22/23 Jeramie Damon Dough SheeterResidential Specialist 10/28/23 documented as of this encounter
--- OUTSIDE RECORDS SUMMARY | 2025-01-28 10:46 | XMS_ITS | Encounter Summary ---
Author Organization [employer] Address 75 [facility] 7t [place] [address] Care Team Providers Care Test Engineer Name Role Phone Genna Snow Primary Care Provider Encounter Details Date Type Department Care Team (Late st Contact Info) Description 05/30/2023 Abstract [facility] MEDICINE 230 [place], [place] [phone] Genna Snow ANP 230 [place], [place] [phone] Social History Tobacco Use Types Packs/Day Years [...] Description 02/22/2025 9:30 AM EDT Office Visit [facility] MEDICINE [address] [place] [address] Genna Snow ANP 230 [place] [address] documented as of this encounter Visit Diagnoses Not on filedocumented in this encounter Additional Health Concerns Assessment Noted Time PHQ-9 Depression Total Score: 0 04/17/20 23 12:51 PM EST documented as of this encounter Care Teams Test Engineer Relationship Specialty Start Date End Date Genna Snow ANP [address] [place] [address] PCP - General Family Medicine 03/26/21 Daniela Joy RN Care Manager 01/22/23 Jeramie Damon Global Program ManagerSenior Net C Developer 10/28/23 documented as of this encounter
--- OUTSIDE RECORDS SUMMARY | 2025-01-28 10:46 | XMS_ITS | Encounter Summary ---
Author Organization [employer] Address 75 [facility] 7t [place] [address] Care Team Providers Care Cannery Tender Engineer Name Role Phone Genna Snow Primary Care Provider [phone] Reason for Visit * Reason Onset Date Comments Med Refill 11/19/2024 Encounter Details Date Type Department Care Team ([facility] st Contact Info) Description 11/19/2024 Refill [facility] MEDICINE 230 [place], [place] [phone] Genna Snow ANP 230 [place], [place] [phone] Class 2 severe obesity with serious comorbidity [...] with others, in a hotel, in a halfway, living outside on the street, on a beach, in a car, or in a park 06/25/[address] you li ve. Do you have problems with any of the following? Mold;Lead [place] or Pipes;Water leaks 06/25/2024 Food Insecurity Answer [...] AM EDT documented as of this encounter Functional Status * Over the last 2 weeks, how often have you been bothered by any of the following problems? Question Answer Date of Assessment Author Feeling nervous, anxious, or on edge 3 11/22/2024 9:05 AM EDT Jessica Barajas ctoria Not being able to stop or control worrying 3 11/22/2024 9:05 AM EDT Jessica Barajas ctoria Worrying too much about different things 3 11/22/2024 9:05 AM EDT Jessica Barajas ctoria Trouble relaxing 3 11/22/2024 9:05 AM EDT Sara Cortes Being so restless that it is hard to sit still 2 11/22/2024 9:05 AM EDT Jessica Barajas ctoria Becoming easily annoyed or irritable 3 11/22/2024 9:05 AM EDT Jessica Barajas ctoria Feeling afraid as if somethi ng awful might happen 3 11/22/2024 9:05 AM EDT Larry Friedman V ictoria LAURO-7 Total Score 20 11/22/2024 9:05 AM EDT Sara Barajas documented as of this encounter Plan of Treatment Upcoming Encounters Date Type Department Care Team (Late st Contact Info) Description 02/22/2025 9:30 AM EDT Office Visit [facility] MEDICINE 230 [place] [address] Genna Snow ANP 230 [place] [address] documented as of this encounter Visit Diagnoses Diagnosis Class 2 severe obesity with serious comorbidity and body mass index (BMI) of 36.0 to 36.9 in adult, unspecified obesity type documented in this encounter Additional Health Concerns Assessment Noted Time PHQ-9 Depression Total Score: 21 025 3:43 PM EST documented as of this encounter Care Teams Cannery Tender Engineer Relationship Specialty Start Date End Date Genna Snow ANP 230 [place] [address] PCP - General Family Medicine 03/26/21 Daniela Joy RN Care Manager 01/22/23 Jeramie Damon Field Crew ChiefMachinery Mechanic 10/28/23 documented as of this encounter
--- OUTSIDE RECORDS SUMMARY | 2025-01-28 10:46 | XMS_ITS | Clinical Summary ---
Author Organization [facility] Address [address] [place] [phone] Phone Care Team Providers Care V/[employer] Land[employer] Signal Officer Name Role Phone Gwendolyn Genna SALINAS Primary Care Provider Allergies No known active allergies Medications No [...] YEARS) 1998 PAP SMEAR 2001 MAMMOGRAM 2020 INFLUENZA VACCINE (#1) 2024 COVID-19 VACCINE (2024-2 6 season) 2024 HEPATITIS A VACCINES Aged Out No long [...] ACO C3 ACO C3 ACO C3 ACO [facility] [place] [place] [id number] Care Teams V/[employer] Landing Signal Officer Relationship Specialty Start Date End Date Genna Snow ANP [address] [place] [id number] PCP - General Nurse Practitioner 05/10/23 Additional Source Comments The information contained in this document represents components of the legal health record. It is not the complete legal health record.[facility]
--- OUTSIDE RECORDS SUMMARY | 2025-01-28 10:46 | XMS_ITS | Clinical Summary ---
Author Organization [employer] Address [address] [place] [address] Care Team Providers Care Manager Field Investigations Name Role Phone Margoth Baig Primary Care Provider [phone] Allergies Active Allergy Reactions Criticality Noted Date [...] the morning, at noon, and at bedtime. 022 Active Multiple Vitamins-Minera ls (Hair/Skin/Nail s) capsule Active omeprazole (PriLOSEC) [address] capsule Take 1 capsule by mouth before breakfast. 022 Active albuterol (2.5 MG/3ML) 0.083% nebulizer solutionIndicat ions:Mild persistent asthma with acute exacerbation Take 3 mL by nebulization every 6 (six) hours if needed for shortness of breath or wheezing. 75 mL 1 024 Active Ventolin HFA 108 (90 Base) MCG/ACT inhalerIndicati ons:Mild persistent asthma with acute exacerbation INHALE 2 PUFFS EVERY 6 HOURS NEEDED FOR SHORTNESS OF BREATH 18 g 1 024 Active PARoxetine (Paxil) 20 MG tabletIndicatio ns:Depressive disorder Take 1 tablet (20 mg) by mouth in the morning. 90 tablet 3 025 Active Blood Pressure kitIndications: Elevated blood pressure reading without diagnosis of hypertension 1 each 2 times daily. 1 kit 025 2025 Active budesonide-form oterol (Symbicort) 160-4.5 MCG/ACT inhalerIndicati ons:Mild persistent asthma with acute exacerbation Inhale 2 puffs in the morning and at bedtime. Rinse mouth with water after use to reduce aftertaste and incidence of candidiasis. Do not swallow. 1 each 11 025 2025 Active Tirzepatide-Elias ght Management (Zepbound) 5 MG/0.5ML solution auto-injectorIn dications:Class 2 severe obesity with serious comorbidity and body mass index (BMI) of 36.0 to 36.9 in adult, unspecified obesity type Inject 0.5 mL (5 mg) under the skin 1 (one) time per week. 2 mL Active Blood Glucose Monitoring Suppl (FreeStyle Lite) w/Device kitIndications: Hypoglycemia 1 each 2 times daily. 1 kit Active FREESTYLE LITE test stripIndication s:Hypoglycemia Use as instructed twice daily 100 each 12 Active Lancets 33G miscIndications :Hypoglycemia 1 each 2 times daily. 100 each 2 025 Active ibuprofen 800 MG tabletIndicatio ns:Left leg pain Take 1 tablet (800 mg) by mouth Every 8-12 hours as needed for mild pain or moderate pain. 90 tablet 1 Active meclizine (Antivert) 25 MG tablet Take 1 tablet by mouth if needed in the morning, at noon, and at bedtime for dizziness. 022 2024 Discontinued(T herapy completed) docusate sodium (Colace) 100 MG capsuleIndicati ons:Constipatio n, unspecified constipation type Take 1 capsule (100 mg) by mouth 2 times daily. 180 capsule 023 2024 Discontinued(T herapy completed) D-1000 Extra Strength 25 MCG (1000 UT) tablet Take 25 mcg by mouth in the morning. 2024 Discontinued(T herapy completed) Junel FE 05/17 1-20 MG-MCG tablet Take 1 tablet by mouth at bedtime. 022 2024 Discontinued(T herapy completed) methocarbamol (Robaxin) 750 MG tablet Take 750 mg by mouth every 6 (six) hours. 023 2024 Discontinued(T herapy completed) ibuprofen 800 MG tabletIndicatio ns:Left leg pain TAKE 1 TABLET BY MOUTH IN THE MORNING ,NOON AND AT BEDTIME NEEDED FOR PAIN 90 tablet 1 025 2024 Discontinued(R eorder (will not trigger notification to Pharmacy)) Zepbound 10 MG/0.5ML solution auto-injectorIn dications:Class 2 severe obesity with serious comorbidity and body mass index (BMI) of 36.0 to 36.9 in adult, unspecified obesity type INJECT 1 PEN (10MG) INTO THE SKIN ONCE WEEKLY ON SAME DAY.ROTATE INJECTION SITES 2 mL 025 2024 Discontinued Active Problems Patient Care Coordination No te Formatting of this note migh t be different from the original. C3/CM Daniela Joy RN Problem Noted Date Diagnosed Date Homeless 07/01/2024 Class 1 obesity with serious comorbidity and body mass index (BMI) of 32.0 to 32.9 in adult 05/11/2024 LAURO (generalized anxiety disorder) 12/16/2023 Assessment & Plan (11/22/2024 9:12 AM EDT): During [facility] Consult Madison presenting with excessive worry/anxiety, difficulty controlling worry, anxiety/worry associated to restlessness and/or feeling keyed-up/On edge , easily fatigued , difficulty concentrating and/or mind going blank , irritability, muscle tension , and sleep disturbance difficulty falling asleep, Fear , and sense of dread ; for a period of 18+ mo, for most or all symptoms in the context of unable to identify significant stressors. Pt with on-going anxiety and hx of depression and PTSD. Her housing situation is stable now which is helping decrease some of the anxiety sxs. However, pt continues to experience excessive anxiety and worry occurring more days than not for at least six months. She finds it difficult to concentrate. Pt has positive support received by her partner. Her chronic medical condition can also exacerbate her anxiety. Assessment & Plan (2024 2:43 PM EST): [...] by . She was given information for [facility] for sooner appointments. Pt is aware of [...] previous documented hx of Depression services including [facility] Psychotherapy psychopharmacology who presents for Anxiety, Depression, [...] Health Integration Plan Internal Follow up with [facility] External OP therapy referral and OP psychiatry Referral Patient Self Plan Patient to utilize skills provided in intervention , [facility], Patient to engage in OP therapy , and Patient to reach out to [facility] as needed Cannabis use disorder 12/16/2023 Abnormal [...] and protective factors. She was referred to [facility] on 09/26/23. Clinician provided information so that Madison can contact agency for the intake process. Pt is currently on medication to treat symptoms (see PCP note). PLAN: (check all that apply) Continue with current services (defined as services in the past 12 months) . Pt was referred to [facility] on 09/26/23. I printed out letter with agency's contact information. Resolved Problems Problem Noted Date Diagnosed Date Resolved Date Current moderate episode of major depressive disorder without prior episode ([facility]) 03/12/2023 12/16/2023 Assessment & Plan (03/12/2023 4:46 PM EST): Madison reports feeling anhedonia feeling depressed, sleep disturbances, little energy, poor appetite, difficulties concentrating and passive SI; denies plan and/or attempt. She also reports feeling on edge, difficulties controlling worries, worrying about different things, trouble relaxing and fearfulness. She agrees to follow up 03/12. I will reach out to Direct Support Specialist to inform Madison would like a call. [...] and protective factors. She was referred to [facility] on 09/26/23. Clinician provided information so that Madison can contact agency for the intake process. Pt is currently on medication to treat symptoms (see PCP note). PLAN: (check all that apply) Continue with current services (defined as services in the past 12 months) . Pt was referred to [facility] on 09/26/23. I printed out letter with agency's contact information. Assessment & Plan (08/15/2023 12:44 PM EDT): During [facility] Consult Madison presenting with depressed mood, loss [...] external referral and will reach out to [facility] clinician during next medical f/u if needed. Assessment & Plan (01/16/2023 10:08 AM EDT): Assessment: Patient with anxiety symptoms (excessive anxiety, difficult [...] OP therapy referral declined at this time. At this time Madison Eric meets criteria for Visit Diagnoses: Problem List Items Addressed This Visit Other Adjustment disorder with mixed disturbance of emotions and conduct Patient ready to address current needs Yes Strengths-Madison has a supportive partner and she is in the precontemplation stage of change. PLAN: 1. Follow up with [facility]: Recommended for follow-up: As needed 2. Patient goal is to explore additional coping mechanisms and meet with [facility] tree care foreman 3. Behavioral Recommendations a. SDOH referral b. Yoga c. Deep Breathing Encounters * This document contains information received from the source organization and may not represent a complete record from that organization. Date Type Department Care Team Description 01/28/2025 9:00 AM EDT Office Visit [facility] [address] [place], [place] [phone] Elizabeth Phillip, TUTU Proptosis (Primary Dx) 01/28/2025 Travel 01/20/2025 11:30 AM EDT Office Visit [facility] [address] [place] [address] Margoth Baig ANP Hypoglycemia (Primary Dx); Hyperlipidemia, unspecified hyperlipidemia type; Iron deficiency anemia due to chronic blood loss; Left leg pain; Encounter for immunization; Encounter for vaccination; Class 1 obesity with serious comorbidity and body mass index (BMI) of 32.0 to 32.9 in adult, unspecified obesity type; Dietary counseling; Exercise counseling; Screening for diabetes mellitus 01/20/2025 Travel 01/18/2025 Telephone [facility] [address] [place], [place] [phone] Margoth Baig ANP chart prep 01/17/2025 Refill [facility] [address] [place], [place] [phone] Araceli Sinha MD Class 2 severe obesity with serious comorbidity and body mass index (BMI) of 36.0 to 36.9 in adult, unspecified obesity type (CMS/[facility]) 01/17/2025 Refill [facility] [address] [place], [place] [phone] Margoth Baig ANP Class 2 severe obesity with serious comorbidity and body mass index (BMI) of 36.0 to 36.9 in adult, unspecified obesity type (CMS/HCC) 01/17/2025 Telephone [facility] [address] [place] [phone] Laura Wiggins MD ER Follow-up 01/17/2025 Travel 12/31/2024 Telephone [facility] [address] [place] [phone] Beth Vences, RANI NTTS Triage 12/22/2024 Telephone [facility] [address] [place] [phone] Margoth Baig ANP January12/16/2024 Refill [facility] [address] [place] [phone] Margoth Baig ANP Class 2 severe obesity with serious comorbidity and body mass index (BMI) of 36.0 to 36.9 in adult, unspecified obesity type (CMS/HCC) 12/16/2024 Refill [facility] [address] [place] [phone] Araceli Sinha MD Class 2 severe obesity with serious comorbidity and body mass index (BMI) of 36.0 to 36.9 in adult, unspecified obesity type (CMS/HCC) 12/13/2024 Telephone [facility] [address] [place] [phone] Elizabeth Phillip, OD 12/06/2024 Travel 11/22/2024 Telephone [facility] [address] [place] [phone] Margoth Baig ANP Prior Authorization 11/22/2024 Results Follow-Up [address] [address] Margoth Baig ANP Hemoglobin and Hematocrit 11/19/2024 11:15 AM EDT Office Visit [address] [address] Margoth Baig ANP LAURO (generalized anxiety disorder) (Primary Dx); Class 2 severe obesity with serious comorbidity and body mass index (BMI) of 36.0 to 36.9 in adult, unspecified obesity type (CMS/HCC); Left hip pain; Hair loss; Irregular menses 11/19/2024 Refill [facility] [address] [place] [address] Margoth Baig ANP Class 2 severe obesity with serious comorbidity and body mass index (BMI) of 36.0 to 36.9 in adult, unspecified obesity type (CMS/HCC) 11/19/2024 Travel 11/18/2024 Telephone [facility] [address] [place] [address] Margoth Baig ANP chart prep 11/07/2024 Telephone [facility] [address] [place] [address] Margoth Baig ANP Med Refill 11/07/2024 Refill [facility] [address] [place] [address] Margoth Baig ANP Class 2 severe obesity with serious comorbidity and body mass index (BMI) of 36.0 to 36.9 in adult, unspecified obesity type ([facility]) from Last 3 Months Immunizations Immunization Administration Dates Next Due HPV 9-Valent 11/18/2023 HepB-CpG 09/14/2024,08/10/2024 Influenza injectable quadriv alent preservative free 02/27/2022,03/26/2021 Influenza, seasonal, injecta ble, preservative free 01/20/2025,05/11/2024,02/12/2017 Pfizer Covid-19 Vaccine 12+ 01/20/2025,,04/04/2021 Pfizer Covid-19 Vaccine 12+ ld-sucrose (Bee Cap) 10/17/2021 Pneumococcal Conjugate PCV 20 11/18/2023 Tdap [...] with others, in a hotel, in a penitentiary, living outside on the street, on a beach, in a car, or in a park 06/25/[address] you li ve. Do you have problems with any of the following? Mold;Lead [place] or Pipes;Water leaks 06/25/2024 Food Insecurity Answer [...] Sign Reading Time Taken Comments Blood Pressure 118/80 01/20/2025 11:55 AM EDT Pulse 84 01/20/2025 11:55 AM EDT Temperature 36.8 C (98.2 F) 01/20/2025 11:55 AM EDT Respiratory Rate 18 01/20/2025 11:55 AM EDT Oxygen Saturation 99% 01/17/2025 1:12 PM EDT Inhaled Oxygen Concentration - - Weight 88.1 kg (194 lb 3.2 oz) 01/20/2025 11:55 AM EDT Height 165.1 cm (5' 5 ) 01/20/2025 11:55 AM EDT Body Mass Index 32.32 01/20/2025 11:55 AM EDT Plan of Treatment Upcoming Encounters Date Type Department Care Team (Late st Contact Info) Description 02/22/2025 9:30 AM EDT Office Visit [facility] [address] [place] [address] Margoth Baig, ANP [address] [place] [address] Health Maintenance Due Date Last Done Comments Dental Oral Exam 1980 Dental Prophylaxis 1980 Dental X-Ray: Bitewings 1980 Dental X-Ray: Full Mouth 1980 Family Planning (PISQ) 07/03/1995 HPV Vaccines (2 - 3-dose series) 12/16/2023 11/18/2023 Depression Monitoring 01/01/2025 07/01/2024, 025 Mammogram 04/01/2025 04/01/2024, 08/2023, 04/01/2024, Additional history exists SDOH Screening 06/25/2025 06/25/2024 Alcohol/Substance Use Screening 08/09/2025 08/09/2024 Disability Screening 08/09/2025 08/09/2024 Tobacco Screening 01/20/2026 01/20/2025 Cervical Cancer Screening 04/22/2027 HPV/Cotest 04/22/2027 10/10/2021 Pap Smear 04/22/2027 04/22/2024, 10/10/2021 Lipid Panel 11/17/2028 11/18/2023, 02/0 12/2022, 08/20/2021 Zoster Vaccines (1 of 2) 2030 DTaP/Tdap/Td Vaccines (3 - Td or Tdap) 08/09/2034 08/09/2024, 08/23/2014 RSV Patients and Patients Aged 60 years or older (1 - 1-dose 75+ series) 07/03/2055 HIV Screening Completed 08/20/2021 Hepatitis C Screening Completed 08/20/2021 Pneumococcal Vaccine: Pediatrics (0 to 5 Years) and At-Risk Patients (6 to 49) Years Completed 11/18/2023 Hepatitis B Vaccines Completed 09/14/2024, 08/11/19 COVID-19 Vaccine Completed 01/20/2025, 05/2021, 10/17/2021, Additional history exists Influenza Vaccine Completed 01/20/2025, , 02/27/2022, Additional history exists HIB Vaccines Aged Out [...] Procedure Name Priority Date/Time Associated Diagnosis Comments FSH Routine 11/22/2024 9:29 AM EDT Irregular menses HEMOGLOBIN + HEMATOCRIT Routine 11/22/2024 9:29 AM EDT Hair loss TESTOSTERONE, FREE (DIALYSIS) AND TOTAL,MS Routine 11/22/2024 9:29 AM EDT Hair loss FERRITIN Routine 11/22/2024 9:24 AM EDT Hair loss IRON AND TOTAL IRON BINDING CAPACITY Routine 11/22/2024 9:24 AM EDT Hair loss TSH W/REFLEX TO FT4 Routine 11/22/2024 9 :24 AM EDT Hair loss HM PAP/HPV Routine 04/22/2024 12:00 AM EST BI US BREAST LIMITED LEFT STAT 04/01/2024 [...] Relevant to Health Maintenance Results * (ABNORMAL) Hemoglobin and Hematocrit (11/22/2024 9:29 AM EDT) Hemoglobin 11.1(L) 12.0 - 16.0 g/dl [facility] Hematocrit 36.2(L) 37.0 - 47.0 % [facility] Blood Venous blood specimen / Unknown 11/22/2024 9:29 AM EDT 11/22/2024 11:33 AM EDT [facility] LAB BLOOD ORDERABLES Final Resul t [facility] [address] [place] [phone] * Testosterone, Free (Dialysis) And Total, MS (11/22/2024 9:29 AM EDT) Testosterone, Total 17 2 - 45 ng/dL [facility] Comment:For additional infor mation, please refer tohttp://education.[employer]/faq/OipllBnvuogrkvxkpWHVKBIGTZ263(This link is being provided for informational/educational purposes only.)This test was developed and its analytical performancecharacteristics have been determined by [employer] [place], [place]. It hasnot been cleared or approved by the U.S. Food and DrugAdministration. This assay has been validated pursuantto the CLIA regulations and is used for clinicalpurposes. Testosterone, Free 2.3 0.1 - 6.4 pg/mL [facility] Comment:This test was develo ped and its analytical performancecharacteristics have been determined by [employer] [place], [place]. It hasnot been cleared or approved by the U.S. Food and DrugAdministration. This assay has been validated pursuantto the CLIA regulations and is used for clinicalpurposes.THIS TEST WAS PERFORMED AT:[facility] [place] [address]VEEGTSYTANESHA BANKS MD,PHD Blood Venous blood specimen / Unknown 11/22/2024 9:29 AM EDT 11/22/2024 11:33 AM EDT Margoth Baig [facility] BLOOD ORDERABLES Final Resul t Performing Organization Address [facility] de Phone Number [facility] [address] [place] [phone] * FSH (11/22/2024 9:29 AM EDT) Follicle Stimulating Hormone 10.5 mIU/mL [facility] Comment:Reference Range Foll icular Phase 2.5-10.2 Mid-cycle Peak 3.1-17.7 Luteal Phase 1.5- 9.1 Postmenopausal 23.0-116.3THIS TEST WAS PERFORMED AT:[employer] [address] [phone] CONNER MD Blood Venous blood specimen / Unknown 11/22/2024 9:29 AM EDT 11/22/2024 11:33 AM EDT Margoth Baig ANP LAB BLOOD ORDERABLES Final Resul t Performing Organization Address [facility] Co de Phone Number [facility] [address] [place] [phone] * TSH W/Reflex to FT4 (11/22/2024 9:24 AM EDT) TSH reflex Free T4 1.46 0.32 - 4.0 uIU/mL [facility] Blood Venous blood specimen / Unknown 11/22/2024 9:24 AM EDT 11/22/2024 11:31 AM EDT us Margoth Baig ANP LAB BLOOD ORDERABLES Final Resul t Performing Organization Address [facility] de Phone Number [facility] [address] [place] [phone] * (ABNORMAL) Iron And Total Iron Binding Capacity (11/22/2024 9:24 AM EDT) Iron 29(L) 30 - 160 mcg/dL [facility] Total Iron Binding Capacity 298 228 - 428 mcg/dL [facility] Percent Iron Saturation 10(L) 15 - 50 % [facility] Unsaturated Iron Binding 269 ug/dL [facility] Blood Venous blood specimen / Unknown 11/22/2024 9:24 AM EDT 11/22/2024 11:31 AM EDT us Margoth Baig ANP LAB BLOOD ORDERABLES Final Resul t Performing Organization Address [facility] Phone Number [facility] [address] [place] [phone] * (ABNORMAL) Ferritin (11/22/2024 9:24 AM EDT) Ferritin 9(L) 10 - 250 ng/mL [facility] Blood Venous blood specimen / Unknown 11/22/2024 9:24 AM EDT 11/22/2024 11:31 AM EDT us Margoth Baig ANP LAB BLOOD ORDERABLES Final Resul t Performing Organization Address [facility] Co de Phone Number [facility] [address] [place] [phone] * HM PAP/HPV (04/22/2024 12:00 AM EST) us Historical Provider HEALTH MAINTENANCE Final Result * BI US Breast Limited Left (04/01/2024 11:52 AM EST) Anatomical Region Laterality Modality Breast Left Ultrasound 04/01/2024 11:5 2 AM EST Narrative 04/01/2024 12:18 PM EST [address] [place] [address] Ultrasound Report Signed Patient: Madison Eric MR#: [id number] : 1980 Acct:[id number] Age/Sex: 43 / F ADM Date: 04/01/24 Loc: HO.MAMMO Attending Dr: Emil Rodriguez CNM Ordering Physician: EMIL RODRIGUEZ CNM Date of Service: 04/01/24 Procedure(s): US breast LT limited mamm only Accession Number(s): [id number] cc: EMIL RODRIGUEZ CNM; MARGOTH BAIG NP [...] by: Lluvia Carpio DO 04/01/2024 12:15 PM EST Dictated By: Lluvia Carpio DO Signed By: <Electronically signed by Lluvia Carpio DO in OV> 04/01/24 1215 DD/ 1152 TD/TT: 04/01/24 1207 Skidder: Procedure Note Donotuseinterpreter, Image - 04/01/2024 [facility] [address] [place] [address] Ultrasound Report Signed Patient: Gee Eric#: [id number] : 1980Acct:[id number] Age/Sex: 43 / FADM Date: 04/01/24 Loc: [facility] Attending Dr: Emil Rodriguez CNM Ordering Physician: EMIL RODRIGUEZ CNM Date of Service: 04/01/24 Procedure(s): US breast LT limited mamm only Accession Number(s): [id number] cc: EMIL RODRIGUEZ CNM; MARGOTH BAIG NP [...] by: Lluvia Carpio DO 04/01/2024 12:15 PM [facility] Dictated By: Lluvia Carpio DO Signed By: <Electronically signed by Lluvia Carpio DO in OV> 04/01/24 1215 DD/ 1152 TD/TT: 04/01/24 1207 Skidder: us Emil Rodriguez CNM IM US PROCEDURES Edited Result - Final * (ABNORMAL) Lipid Panel, Standard (11/18/2023 10:38 AM EDT) Triglycerides 172(H) <150 mg/dL [facility] Comment:Desirable Triglyceri de: less than 150 mg/dLBorderline High Triglyceride 150-199 mg/dLHigh Triglyceride: 200-499 mg/dLVery High Triglyceride: greater than or equal to 5OO mg/dL Cholesterol 227(H) <200 mg/dL [facility] Comment:Desirable Cholestero l: less than 200 mg/dLBorderline High Cholesterol: 200-239 mg/dLHigh Cholesterol: greater than 239 mg/dL LDL Cholesterol Calculated 146(H) <100 mg/dL [facility] Comment:Desirable LDL: less than 100 mg/dLNear Optimal/Above Optimal LDL: 110- 129 mg/dLBorderline High LDL: 130-159 mg/dLHigh LDL: 160-189 mg/dLVery High LDL: greater than or equal to 190 mg/dL HDL Cholesterol 47 >40 mg/dL [facility] Comment:Desirable HDL: great er than 40 mg/dL Note: This HDL assay may give artificially low results in patients with liver disease. Blood Venous blood specimen / Unknown 11/18/2023 10:38 AM EDT 11/18/2023 10:38 AM EDT us Margoth Baig [facility] BLOOD ORDERABLES Final Resul t [facility] [address] [place] [phone] * THINPREP TIS PAP AND HPV mRNA E6/E7, CT/NG, TRICH (10/10/2021 3:14 PM EDT) Chlamydia trachomatis RNA, TMA, Urogenital NOT DETECTED NOT DETECTED [facility] Clinical Information: None given [facility] COMMENT SEE COMMENT [facility] Comment: The analytical performance characteristics of this assay, when used to test SurePath(TM) specimens have been determined by [employer]. The modifications have not been cleared or approved by the FDA. This assay has been validated pursuant to the CLIA regulations and is used for clinical purposes. For additional information, please refer to https://education.[employer]/faq/TJB270 (This link is being provided for information/ educational purposes only.) COMMENT [facility] Comment: EXPLANATORY NOTE: The Pap is a screening test for cervical cancer. It is not a diagnostic test and is subject to false negative and false positive results. It is most reliable when a satisfactory sample, regularly obtained, is submitted with relevant clinical findings and history, and when the Pap result is evaluated along with historic and current clinical information. COMMENT: This Pap test has been evaluated with computer assisted technology. [facility] Educational Programming Director: SEE COMMENT [facility] Comment: ED, CT(ASCP) CT screening location: [address] [address] HPV nRNA E6/E7 Not Detected Not Detected [facility] Comment: Methodology: Criminal Justice Program Director-Mediated Amplification This assay detects E6/E7 viral messenger RNA (mRNA) from 14 high-risk HPV types (16,18,31,33,35,39,45,51,52,56,58,59,66,68). Cervical sources are required for HPV testing. If a vaginal source from a patient who has had a total hysterectomy with removal of cervix was submitted, please contact the testing laboratory for alternative testing options. For additional information, please refer to http://education.[employer]/faq/RYW785d7 (This link if provided for information/ educational purposes only.) Interpretation/Re sult: Negative for intraepithelial lesion or malignancy. [facility] LMP: 10/02/2021 [facility] Neisseria gonorrhoeae RNA, TMA, Urogenital NOT DETECTED NOT DETECTED [facility] Prev. BX: NONE GIVEN [facility] [...] of this assay have been determined by [employer]. The modifications have not been cleared or approved by the FDA. This assay has been validated pursuant to the CLIA regulations and is used for clinical purposes. For additional information, please refer to http://Certess.[employer]/ faq/Trichomonastma (This link is being provided for information/ educational purposes only.) 10/10/2021 3:14 PM EDT us Emil SOTO LAB PATHOLOGY ORDERABLES Final Result [facility] [address] [place] [address], * HEPATITIS C AB W/REFL TO HCV RNA, QN, PCR (08/20/2021 10:22 AM EDT) HEPATITIS C ANTIBODY NON-REACT FRIEDA NON-REACT FRIEDA [facility] INDEX 0.01 <1.00 [facility] Comment: HCV antibody was non-reactive. There is no laboratory evidence of HCV infection. In most cases, no further action is required. However, if recent HCV exposure is suspected, a test for HCV RNA (test code 32228) is suggested. For additional information please refer to http://Certess.[employer]/faq/HPR40n6 (This link is being provided for informational/ educational purposes only.) 08/20/2021 10:2 2 AM EDT Margoth Baig ANP HISTORICAL/NON ORDERABLE LABS Fi nal Result Performing Organization Address [facility] Phone Number [facility] [address] * HIV 1/2 ANTIGEN/ANTIBODY,FOURTH GENERATION W/RFL (08/20/2021 10:22 AM EDT) HIV-1/2 ANTIGEN AND ANTIBODIES, 4TH GENERATION W/ REFLEX NON-REACT FRIEDA NON-REACT FRIEDA [facility] Comment: HIV-1 antigen and HIV-1/HIV-2 antibodies were not detected. There is no laboratory evidence of HIV infection. PLEASE NOTE: This information has been disclosed to you from records whose confidentiality may be protected by state law. If your state requires such protection, then the state law prohibits you from making any further disclosure of the information without the specific written consent of the person to whom it pertains, or as otherwise permitted by law. A general authorization for the release of medical or other information is NOT sufficient for this purpose. For additional information please refer to http://Certess.[employer]/faq/KOJ251 (This link is being provided for informational/ educational purposes only.) The performance of this assay has not been clinically validated in patients less than 2 years old. 08/20/2021 10:2 2 AM EDT Margoth Baig ANP LAB BLOOD ORDERABLES Final Resul t Performing Organization Address [facility] Phone Number [facility] [address] from Last 3 Months or Most Recently Relevant to Health Maintenance Insurance [facility] STANDARD * Guarantor: Madison Eric Account Type Relation to Patient Date of Phone Billing Address Dental Self [address] [place] [address] [facility] MEDICAID STAND ADULT Care Teams Manager Field Investigations Relationship Specialty Start Date End Date Margoth Baig ANP [address] [place] [address] [phone] PCP - General Family Medicine 03/26/21 Daniela Joy health clinician 01/22/23 Jeramie Damon Casework ManagerResort Manager 10/28/23
--- OUTSIDE RECORDS SUMMARY | 2025-01-28 10:46 | XMS_ITS | Encounter Summary ---
Author Organization [employer] Address [address] [facility] 7t [place] [address] Care Team Providers Care Rag Production Worker Name Role Phone Genna Snow Primary Care Provider [phone] Encounter Details Date Type Department Care Team (Late st Contact Info) Description 03/10/2023 Abstract [facility] [address] [place], [place] [phone] Genna Snow ANP [address] [place], [place] [phone] Social History Tobacco Use Types Packs/Day Years [...] Office Visit [facility] [address] [place] [address] Genna Snow ANP [address] [place] [address] documented as of this encounter Visit Diagnoses Not on filedocumented in this encounter Care Teams Rag Production Worker Relationship Specialty Start Date End Date Genna Snow ANP [address] [place] [address] PCP - General Family Medicine 03/26/21 Daniela Joy RN Care Manager 01/22/23 Jeramie Damon Solid Tire Tuber Machine OperatorSize Mixer 10/28/23 documented as of this encounter
--- OUTSIDE RECORDS SUMMARY | 2025-01-28 10:46 | XMS_ITS | Encounter Summary ---
Author Organization [employer] Address [address] [facility] 7t [place] [address] Care Team Providers Care Mobile Development Manager Name Role Phone Genna Snow Primary Care Provider [phone] Reason for Visit * Reason Onset Date Comments Med Refill 12/16/2024 Encounter Details Date Type Department Care Team ([facility] st Contact Info) Description 12/16/2024 Refill [facility] [address] [place], [place] [phone] Genna Snow ANP [address] [place], [place] [phone] Class 2 severe obesity with serious comorbidity [...] with others, in a hotel, in a fci, living outside on the street, on a beach, in a car, or in a park 06/25/[address] you li ve. Do you have problems with any of the following? Mold;Lead [place] or Pipes;Water leaks 06/25/2024 Food Insecurity Answer [...] Description 02/22/2025 9:30 AM EDT Office Visit [facility] [address] [place] [phone] Genna Snow ANP [address] [place] [address] documented as of this encounter Visit Diagnoses Diagnosis Class 2 severe obesity with serious comorbidity and body mass index (BMI) of 36.0 to 36.9 in adult, unspecified obesity type documented in this encounter Additional Health Concerns Assessment Noted Time PHQ-9 Depression Total Score: 21 025 3:43 PM EST documented as of this encounter Care Teams Mobile Development Manager Relationship Specialty Start Date End Date Genna Snow ANP [address] [place] [address] PCP - General Family Medicine 03/26/21 Daniela Joy RN Care Manager 01/22/23 Jeramie Damon Foot OrthopedistClay Processing Labourer 10/28/23 documented as of this encounter
--- OUTSIDE RECORDS SUMMARY | 2025-01-28 10:46 | XMS_ITS | Encounter Summary ---
Author Organization [employer] Address [address] [facility] 7t [place] [address] Care Team Providers Care Sal[employer] Officer Name Role Phone Genna Snow Primary Care Provider [phone] Reason for Visit * Reason Comments Med Refill Encounter Details Date Type Department Care Team ([facility] st Contact Info) Description 06/17/2024 Refill [facility] 230 [place], [place] [phone] Genna Snow ANP 230 [place], [place] [phone] Class 2 obesity with body mass index [...] Description 02/22/2025 9:30 AM EDT Office Visit [facility] [address] [place] [address] Genna Snow ANP [address] [place] [address] documented as of this encounter Visit Diagnoses Diagnosis Class 2 obesity with body mass index (BMI) of 38.0 to 38.9 in adult, unspecified obesity type, unspecified whether serious comorbidity present documented in this encounter Additional Health Concerns Assessment Noted Time PHQ-9 Depression Total Score: 19 024 12:50 PM EDT documented as of this encounter Care Teams [employer] Officer Relationship Specialty Start Date End Date Genna Snow ANP [address] [place] [address] PCP - General Family Medicine 03/26/21 Daniela Joy RN Care Manager 01/22/23 Jeramie Damon Cake Batter MixerBakery Demonstrator 10/28/23 documented as of this encounter
--- OUTSIDE RECORDS SUMMARY | 2025-01-28 10:46 | XMS_ITS | Clinical Summary ---
Author Organization [facility] Address [address] [place] [address] Phone Care Team Providers Care Barley Steeper Name Role Phone Genna Snow NP Primary Care Provider [phone] Allergies No known active allergies Medications ibuprofen [...] capsule (20 mg total) by mouth. Active Zepbound 7.5 mg/0.5 mL injection Inject 0.5 mL (7.5 mg total) under the skin every 7 (seven) days. Active Active Problems Problem Noted Date Diagnosed Date Iron deficiency anemia due to chronic blood loss 02/27/2022 Ureteral stone 08/29/2016 Overview (02/23/2024): Seeing urology Bipolar disorder ([facility] V24, [facility] V28) 07/28 Gestational diabetes mellitus 08/23/2014 Encounters Date Type Department Care Team Description 01/17/2025 7:58 PM EDT - 01/17/2025 8:35 PM EDT Emergency [facility] Emergency [address] [place] [address] Anish Mcgowan MD Hypoglycemia (Primary Dx) Discharge Disposition: Home or Self Care from Last 3 Months Immunizations Immunization Administration Dates Next Due PPD Test 08/23/2014 [...] History Medical History Date Comments Anemia DX:Anemia Sciatica Asthma Family History Relation Name Status Comments Father [...] Sign Reading Time Taken Comments Blood Pressure 159/89 01/17/2025 5:28 PM EDT Pulse 69 01/17/2025 5:28 PM EDT Temperature 36.8 C (98.2 F) 01/17/2025 5:28 PM EDT Respiratory Rate 20 01/17/2025 5:28 PM EDT Oxygen Saturation 100% 01/17/2025 5:28 PM EDT Inhaled Oxygen Concentration - - Weight 86.2 kg (190 lb) 01/17/2025 5:28 PM EDT Height 165.1 cm (5' 5 ) 01/17/2025 5:28 PM EDT Body Mass Index 31.62 01/17/2025 5:28 PM EDT Plan of Treatment Upcoming Encounters Date Type Department Care Team (Late st Contact Info) Description 02/14/2025 10:45 AM EDT Office Visit [facility] Hematology Oncology [address] [place] [phone] Savannah Rangel, DO [address] [place] [address] Health Maintenance Due Date Last Done Comments Social Influencers of Health Screening 04/10/2022 HPV Vaccines (2 - 3-dose SCDM series) 12/16/2023 11/18/2023 Depression Screening 04/28/2024 COVID-19 Vaccine ( season) 2024 02/27/2022, 10/17/2021, 04/25/2021, Additional history exists Influenza Vaccine (#1) 2024 , 02/27/2022, 03/26/2021, Additional history exists Breast Cancer Screening 10/06/2025 10/07/2023 Cervical Cancer Screening: Pap Smear 04/22/2027 04/22/2024, 09/23/2014, 09/23/2014 Cholesterol Screening (Lipid Panel) 11/17/2028 11/18/2023, 07/03/2016 DTaP,Tdap,and Td Vaccines (3 - Td or Tdap) 08/09/2034 08/09/2024, 08/23/2014 RSV Immunization Adult Patients (1 - 1-dose 75+ series) 07/03/2055 Hepatitis C Screening Completed 12/21/2015 HIV Screening Completed 08/20/2021, 12/21/2015 Pneumococcal Vaccine: Pediatrics (0 to 5 Years) and At-Risk Patients (6 to 49 Years) Completed 11/18/2023 Hepatitis B Vaccines Completed 09/14/2024, 08/11/19 HIB Vaccines Aged Out No longer eligi [...] Procedure Name Priority Date/Time Associated Diagnosis Comments ECG ANNOTATED 01/18/2025 POCT GLUCOSE BLOOD Routine 01/17/2025 8: 05 PM EDT CBC WITH AUTO DIFFERENTIAL STAT 01/17/2025 6:20 PM EDT COMPREHENSIVE METABOLIC PANEL STAT 01/17/2025 6:20 PM EDT CBC AND DIFFERENTIAL STAT 01/17/2025 6:20 PM EDT ECG 12-LEAD STAT 01/17/2025 6:14 PM EDT PAP SMEAR Routine 04/22/2024 12:00 AM EST Unspecified abnormal cytological findings in specimens from cervix uteri MG MAMMO DIGITAL SCREENING W TORIBIO BILAT Routine 10/07/2023 8:37 AM EDT LIPID PANEL Routine 07/03/2016 HM HEPATITIS C SCREENING Routine 12/21/2015 HIV SCREENING Routine 12/21/2015 from Last 3 Months or Most Recently Relevant to Health Maintenance Results * ECG-Annotated (01/18/2025) us Provider Onbase MD ECG ORDERABLES Final Result * POCT Glucose, blood (01/17/2025 8:05 PM EDT) [facility] Glucose POCT 98 70 - 100 mg/dL 01/18/2025 5:35 AM EDT [facility] Blood Capillary blood specimen / Unknown 01/17/2025 8:05 PM EDT 01/18/2025 5:36 AM EDT Anish Mcgowan MD LAB POINT OF CAR E TEST DOCKED DEVICE UNSOLICITED RESULTS Final Result [facility] [address] [place] [address], [place] [phone] * (ABNORMAL) CBC auto differential (01/17/2025 6:20 PM EDT) [facility] WBC 10.6 4.8 - 10.8 K/mcL LAB HEMETOLOGY METHOD 01/17/2025 6:57 PM EDT [facility] RBC 4.70 3.80 - 4.80 M/mcL LAB HEMETOLOGY METHOD 01/17/2025 6:57 PM EDT [facility] Hemoglobin 12.1 11.5 - 16.0 g/dL LAB HEMETOLOGY METHOD 01/17/2025 6:57 PM EDT [facility] Hematocrit 38.7 35.0 - 47.0 % LAB HEMETOLOGY METHOD 01/17/2025 6:57 PM EDT [facility] MCV 82.7 79.0 - 98.0 FL LAB HEMETOLOGY METHOD 01/17/2025 6:57 PM EDT [facility] MCH 25.9(L) 27.0 - 32.0 pcg LAB HEMETOLOGY METHOD [facility]/17[facility]25 [facility] MCHC 31.3(L) 32.0 - 37.0 g/dL LAB HEMETOLOGY METHOD 01/17/2025 6:57 PM EDT [facility] RDW 14.8 11.0 - 15.0 % LAB HEMETOLOGY METHOD 01/17/2025 6:57 PM EDT [facility] Platelets 306 130 - 400 K/mcL LAB HEMETOLOGY METHOD 01/17/2025 6:57 PM [facility] MPV 9.6 7.0 - 11.0 FL LAB HEMETOLOGY METHOD 01/17/2025 6:57 PM [facility] NRBC 0.0 <1.0 % LAB HEMETOLOGY METHOD 01/17/2025 6:57 PM [facility] NRBC Absolute 0.00 <0.10 K/mcL LAB HEMETOLOGY METHOD 01/17/2025 6:57 PM [facility] Neutrophils Relative 63.5 % LAB HEMETOLOGY METHOD 01/17/2025 6:57 PM [facility] Lymphocytes Relative 28.2 % LAB HEMETOLOGY METHOD 01/17/2025 6:57 PM [facility] Monocytes Relative 7.2 % LAB HEMETOLOGY METHOD 01/17/2025 6:57 PM [facility] Eosinophils Relative 0.5 % LAB HEMETOLOGY METHOD 01/17/2025 6:57 PM [facility] Basophils Relative 0.3 % LAB HEMETOLOGY METHOD 01/17/2025 6:57 PM [facility] Immature Granulocytes Relative 0.3 % LAB HEMETOLOGY METHOD 01/17/2025 6:57 PM EDT [facility] Neutrophils Absolute 6.72 1.50 - 7.00 K/mcL LAB HEMETOLOGY METHOD 01/17/2025 6:57 PM EDT [facility] Lymphocytes Absolute 2.98 1.00 - 5.00 K/mcL LAB HEMETOLOGY METHOD 01/17/2025 6:57 PM EDT [facility] Monocytes Absolute 0.76 0.20 - 1.00 K/mcL LAB HEMETOLOGY METHOD 01/17/2025 6:57 PM EDT [facility] Eosinophils Absolute 0.05 0.00 - 0.50 K/mcL LAB HEMETOLOGY METHOD 01/17/2025 6:57 PM EDT [facility] Basophils Absolute 0.03 0.00 - 0.20 K/mcL LAB HEMETOLOGY METHOD 01/17/2025 6:57 PM EDT [facility] Immature Granulocytes Absolute 0.03 0.00 - 0.03 K/mcL LAB HEMETOLOGY METHOD 01/17/2025 6:57 PM EDT [facility] Blood Venous blood specimen / Unknown Venipuncture / Unknown 01/17/2025 6:20 PM EDT 01/17/2025 6:42 PM EDT us Adam Amezcua MD LAB BLOOD ORDERABLES Final R esult [facility] [address] [place] [address], * (ABNORMAL) Comprehensive metabolic panel (01/17/2025 6:20 PM EDT) Sodium 140 133 - 145 mmol/L LAB CHEMISTRY METHOD 01/17/2025 7:06 PM EDT [facility] Potassium 3.6 3.5 - 5.5 mmol/L LAB CHEMISTRY METHOD 01/17/2025 7:06 PM [facility] Chloride 105 96 - 110 mmol/L LAB CHEMISTRY METHOD 01/17/2025 7:06 PM [facility] CO2 31 21 - 32 mmol/L LAB CHEMISTRY METHOD 01/17/2025 7:06 PM [facility] Anion Gap 4 3 - 11 LAB CHEMISTRY METHOD 01/17/2025 7:06 PM [facility] Glucose 69(L) 70 - 100 mg/dL LAB CHEMISTRY METHOD 01/17/2025 7:06 PM [facility] BUN 13 5 - 25 mg/dL LAB CHEMISTRY METHOD 01/17/2025 7:06 PM [facility] Creatinine 0.95 0.50 - 1.10 mg/dL LAB CHEMISTRY METHOD 01/17/2025 7:06 PM [facility] eGFR 76 >=60 mL/min/1. 73m2 LAB CHEMISTRY METHOD 01/17/2025 7:06 PM [facility] Comment:Calculation based on the Chronic Kidney Disease Epidemiology Collaboration (CKD-EPI) equation refit without adjustment for race. BUN/Creatinine Ratio 13.7 LAB CHEMISTRY METHOD 01/17/2025 7:06 PM [facility] Calcium 9.2 8.5 - 10.5 mg/dL LAB CHEMISTRY METHOD 01/17/2025 7:06 PM [facility] AST (SGOT) 10 10 - 42 unit/L LAB CHEMISTRY METHOD 01/17/2025 7:06 PM [facility] ALT (SGPT) 17 10 - 60 unit/L LAB CHEMISTRY METHOD 01/17/2025 7:06 PM [facility] Alkaline Phosphatase 63 42 - 121 unit/L LAB CHEMISTRY METHOD 01/17/2025 7:06 PM [facility] Total Protein 7.0 6.0 - 8.0 g/dL LAB CHEMISTRY METHOD 01/17/2025 7:06 PM EDT [facility] Albumin 3.9 3.2 - 5.0 g/dL LAB CHEMISTRY METHOD 01/17/2025 7:06 PM EDT [facility] Total Bilirubin 0.3 0.0 - 1.4 mg/dL LAB CHEMISTRY METHOD 01/17/2025 7:06 PM EDT [facility] Blood Venous blood specimen / Unknown Venipuncture / Unknown 01/17/2025 6:20 PM EDT 01/17/2025 6:42 PM EDT Adam Amezcua MD LAB BLOOD ORDERABLES Final R esult Performing Organization Address City/[facility] Co de Phone Number [facility] [address] [place] [address], [place] [phone] * ECG 12 lead (01/17/2025 6:14 PM EDT) Ventricular Rate ECG 53 BPM G[facility] Atrial Rate 53 BPM [facility] P-R Interval 168 ms GEMUSE QRS Duration 88 ms GEMUSE Q-T Interval 426 ms GEMUSE QTc 399 ms GEMUSE P Wave [place] 65 degrees GEMUSE R [place] 72 degrees GEMUSE T [place] 45 degrees GEMUSE ECG Interpretation Sinus bradycardia Otherwise normal ECG When compared with ECG of 26-JAN-2022 15:16, No significant change was found Confirmed by DREA MURRAY ([id number]) on 01/19/2025 9:44:00 PM GEMUSE 01/17/2025 6:14 PM EDT 01/19/2025 9:44 PM EDT Adam Amezcua MD ECG ORDERABLES Final Result Performing Organization Address [facility] Co de Phone Number G[facility] * Pap smear (04/22/2024 12:00 AM EST) Interpretation Negative for intraepithelial lesion or malignancy 04/26/2024 4:26 PM EST [facility] General Categorization Negative 04/26/2024 4:[address] [facility] Other Findings Shift in ramin suggestive of bacterial vaginosis 04/26/2024 4:[address] [facility] Specimen Adequacy Satisfactory for evaluation, endocervical/valente sformation zone component absent 04/26/2024 4:[address] [facility] Pap Methodology Liquid Based Pap Test 04/26/2024 4:[address] [facility] Disclaimer The Pap test is a screening test which carries an inherent false negative rate. These test results should be correlated with the patient's clinical findings and history. This Pap test was processed using an automated screening system. Technical cytopathology services provided by [facility], at [address] [place] [id number] (CLIA # [id number]/Penny Ozuna MD, [facility].) 04/26/2024 4:[address] [facility] Console Pap Interpretation Reported 04/26/2024 4:[address] [facility] Brushing/Spatula Cervix uteri structure / Unknown 04/22/2024 04/23/2024 7:04 AM EST Bertha Grewal MD LAB CYTOLOGY ORDERABLES Final Result [facility] [address] [place] [address], [place] [phone] * MG Mammo Digital Screening w Toribio bilat (10/07/2023 8:37 AM EDT) Anatomical Region Laterality Modality Breast Bilateral Mammography us Genna Snow NP IMG BI PROCEDURES Final Result * (ABNORMAL) Lipid panel (07/03/2016) LDL/HDL Ratio 5(A) 0 - 4 Triglycerides 165(A) 0 - 150 mg/dL Cholesterol 252(A) 0 - 200 mg/dL HDL 46 >=40 mg/dL LDL Cholesterol 173(A) 0 - 100 mg/dL Blood Venous blood specimen / Unknown [facility] Provider LAB BLOOD ORDERABLES Shelli l Result * HIV Screening (12/21/2015) HIV Screening Abstracted Historical Provider HEALTH MAINTENANCE Final Result * Hepatitis C Screening (12/21/2015) Hepatitis C Screening Abstracted [facility] Provider HEALTH MAINTENANCE Final Result from Last 3 Months or Most Recently Relevant to Health Maintenance Insurance MEDICAID - [place] Care Teams Barley Steeper Relationship Specialty Start Date End Date Genna Snow NP [address] [phone] PCP - General 01/30/22
[2025-01-28 11:32] LABS: MANUAL DIFF FLAG NO
[2025-01-28 12:03] LABS: Hematocrit 37.4 % (37.0-47.0); Hemoglobin 12.0 g/dl (12.0-16.0); Imm Gran Abs Auto 0.02 X10*3/uL (0.00-0.03); Imm Gran Pct Auto 0.3 % (0.0-0.4); Lymphocytes Absolute Auto 2.5 X10*3/uL (1.2-4.9); Mean Corpuscular HGB Conc 32.1 g/dl (31.0-35.0); Mean Corpuscular Hemoglobin 25.9 pg (27.0-33.0); Mean Corpuscular Volume 80.6 fL (80.0-98.0); NRBC Abs Auto 0.000 X10*3/uL (0.0-0.012); NRBC Pct Auto 0.0 /100WBC (0.0-0.2); Platelet Count 266 X10*3/uL (160-400); Red Blood Count 4.64 X10*6/uL (4.20-5.50); White Blood Count 7.4 X10*3/uL (4.8-10.8)
[2025-01-28 12:13] LABS: Anion Gap 8 (12-20); Blood Urea Nitrogen 10 mg/dL (9-16); Calcium 8.9 mg/dL (8.4-10.2); Carbon Dioxide 29 mmol/L (22-29); Chloride 108 mmol/L (96-108); Cholesterol 220 mg/dL (<200); Estimated Glomerular Filt Rate > 60; HDL Cholesterol 46 mg/dL (>40); Potassium 4.4 mmol/L (3.3-5.1); Sodium 141 mmol/L (135-145); Triglycerides 107 mg/dL (<150)
[2025-01-28 12:17] LABS: Thyroid Stimulating Hormone 1.49 uIU/mL (0.32-4.0)
== END 2025-01-28 10:02 | disposition home or self-care (01) ==
LOC: HO.HHCL 10:01
PROVIDERS: PCP Nurse Practitioner Primary Care; Referring Provider Optometrist; Visit Provider Nurse Practitioner Primary Care
DX: E16.2 Hypoglycemia, unspecified (principal); E78.5 Hyperlipidemia, unspecified; D50.0 Iron deficiency anemia secondary to blood loss (chronic); Z13.29 Encounter for screening for other suspected endocrine disorder; Z13.1 Encounter for screening for diabetes mellitus; Z13.6 Encounter for screening for cardiovascular disorders; Z01.84 Encounter for antibody response examination
CPT/HCPCS: 36415; 80048; 80061; 83036; 83525; 84443; 84445; 84479; 84480; 84681; 85025; 86376

== ENCOUNTER 2025-04-15 13:11 | Outpatient (AMB) | payer MEDICAID, SELFPAY ==
--- OUTSIDE RECORDS SUMMARY | 2025-04-14 14:30 | XMS_ITS | Encounter Summary ---
Author Organization [employer] Address [address] [facility] 7t [place] [address] Care Team Providers Care Claims Sorter Name Role Phone Genna Snow RITA Primary Care Provider [phone] Reason for Visit * Reason Comments Redness, Eye Encounter Details Date Type Department Care Team (Latest Contact Info) Description 04/14/2025 2:30 PM EST Office Visit [facility] OPTOMETRY [address] [place], [place] [phone] Kenji, Elizabeth, OD [address] [place] [address] Subconjunctival hemorrhage of right eye (Primary Dx); Pharmacologic anisocoria Social History Tobacco Use Types Packs/Day Years [...] with others, in a hotel, in a alf, living outside on the street, on a beach, in a car, or in a park 06/25/[address] you li ve. Do you have problems with any of the following? Mold;Lead [place] or Pipes;Water leaks 06/25/2024 Food Insecurity Answer [...] Care Team (Late st Contact Info) Description 05/24/2025 9:30 AM EST Office Visit [facility] [address] [place] [phone] Genna Snow ANP [address] [place] [address] documented as of this encounter Visit Diagnoses Diagnosis Subconjunctival hemorrhage of right eye- Primary Pharmacologic anisocoria documented in this encounter Additional Health Concerns Assessment Noted Time PHQ-9 Depression Total Score: 21 025 3:43 PM EST documented as of this encounter Care Teams Claims Sorter Relationship Specialty Start Date End Date Genna Snow ANP [address] [place] [address] PCP - General Family Medicine 03/26/21 Daniela Joy RN Care Manager 01/22/23 Jeramie Damon Mica Machine OperatorMedical Supervisor 10/28/23 documented as of this encounter
--- NOTE | 2025-04-15 13:15 | A.OFFVIS_ITS ---
Vital Signs 04/15/25 13:22 Height 5 ft 5 in Weight 201 lb 8.04 oz BMI 33.5 BP 115/72 Blood Pressure Location Lt brachial Position Sitting Pulse 64 Pulse Source Pulse Oximeter Pulse Oximetry (%) 98 Oxygen Delivery Method Room Air Intake Visit Reasons: 4months Intake Note: Patient presents today for right hip bursa and fibromyalgia follow up. Computer Repair Technician Required: No Information Interpreted: non-clinical & clinical Accompanied by: Self / Same As Patient Allergies No Known Allergies Allergy (Verified 04/15/25 13:21) Medication List - Last Reconciled 04/15/25 by Praveena Shipley MD albuterol sulfate 90 mcg/actuation 2 puffs inhalation Q6H PRN docusate sodium 100 mg PO BID famotidine 20 mg PO fluticasone propionate 44 mcg/actuation (Flovent HFA) 2 puffs inhalation BID hydrocortisone 1% appl topical BID ibuprofen 600 mg PO Q6H PRN methocarbamol 500 mg PO TID PRN HPI Comments Details: Patient is a 44-year-old female asthma, GERD, peripheral neuropathy of undetermined etiology, psoriasis and ?PsA here today for follow up Interval History: Patient last seen 12/08/24 with me - not on any rheumatologic medications - Complaining of left outer hip pain - Went to PT but this was not helpful - Would like another injection today Today - not on any rheumatologic medications - Doing well after steroid injection - States that she was snow plowing with her boyfriend about 1 week ago and in the days after shw was having soreness of the back of her knee up to her back Rheumatologic History: Initial History: Ms. Eric 42-year-old female referred for evaluation of left ankle enthesopathy. Patient reports she had ankle pain and was evaluated by her PCP who took an x-ray and they sent her to Rheumatology for further workup. She also reports left-sided pain to her gluteal muscle. Additionally, a time left lateral thigh to feels numb with a weird pain. It sometimes wakes her up at night and she has to constantly turning to change sides during sleep. The pain travels down from her gluteal muscle to the side of her knees at times. She reports that sometimes her left leg feels weak like it is going to fall out from under her. She takes Aleve that sometimes help but the last 2-3 hours and Tylenol is of no effect Patient denies Raynaud's phenomenon, butterfly rash on face ; denies photosensitivity - getting sick or developing a rash from being out in the sun; denies blood or froth in urine; patient denies hx of SOB, chest pain. Patient denies hx of Carditis or Pleuritis. The patient reports never have had o take aspirin or a blood thinner during the successful pregnancies. Denies fevers, excessive fatigue, unexplained weight-loss or weight-gain, Denies: thinning hair or hair loss Denies: dry, itchy eyes, red burning eyes needing steroids to treat. She does report that she was told she has increased pressure in her high and possible glaucoma in the right. Patient denied dry mouth, mouth sores or ulcers; nose bleed; ringing in the ear, She has abdominal pain to right upper quadrant but workup was unrevealing and she was put on a PPI. Patient has bouts of constipation that can last up to 4 days. However, she denies blood or mucous in stool; nausea, vomiting and diarrhea , difficulty swallowing, heartburn. Colonoscopy 1 year ago at [facility] - no concerns per patient. Denies morning stiffness lasting more than 10 mins. She deines red, warm swollen joints. Denies dactylitis, uveitis, plantar fasciitis, low back pain, elbow tendinitis. Current Rheumatology Medication(s): [facility] Medical History (Updated 04/15/25 @ 13:24 by Praveena Shipley MD) Trochanteric bursitis, left hip Piriformis syndrome of left side Left sciatic nerve pain Plantar fasciitis of left foot Psoriasis Enthesopathy of ankle Hyperlipidemia, unspecified Pseudotumor cerebri Iron deficiency anemia due to chronic blood loss Cardiovascular event risk Depressive disorder Asthma Family History Maternal Aunt Hx of autoimmune disorder Mother Arthritis Maternal Grandmother Arthritis Social History Household Members: Significant Other Alcohol intake: current Alcohol intake frequency: holidays/special occasions only Patient Tobacco Use Status: Former Tobacco user Years Smoked: 5 Substance Use Type: Marijuana Current occupational status: unemployed Review of Systems Narrative Review of Systems Constitutional: Denies fever, chills, weight loss ENT: Denies vision changes, eye pain or eye redness, dental caries, dry mouth GI: Denies nausea, vomiting, diarrhea, abdominal pain, change in BM Pulm: Denies SOB, BROUSSARD, hemoptysis, wheezing Cards: Denies chest pain, palpitations GRADE CHECKER: Denies headaches, weakness, paresthesias, recurrent falls MSK: as per HPI All other systems reviewed and are unremarkable except noted above Physical Exam Exam Exam: Vital signs reviewed Physical Examination CONSTITUITIONAL Patient alert and cooperative. Well appearing and in no apparent painful distress MSK Hands * Right Hand: Able to make a fist. No swelling or tenderness to palpation of the MCPs, PIPs or DIPs. No deformities noted. * Left Hand: Able to make a fist. No swelling or tenderness to palpation of the MCPs, PIPs or DIPs. No deformities noted. Wrists * Right Wrist: Full ROM to flexion and extension. No swelling or TTP * Left Wrist: Full ROM to flexion and extension. No swelling or TTP Elbows * Right Elbow: Full ROM. No swelling or TTP. No TTP of the medial epicondyle. No TTP of the lateral epicondyle * Left Elbow: Full ROM. No swelling or TTP. No TTP of the medial epicondyle. No TTP of the lateral epicondyle Shoulders * Right shoulder: Full ROM. No swelling noted. No TTP of the AC joint. No TTP of the subacromial bursa. No TTP of the posterior shoulder * Left shoulder: Full ROM. No swelling noted. No TTP of the AC joint. No TTP of the subacromial bursa. No TTP of the posterior shoulder Knees * Right knee: Full ROM. No swelling noted. No TTP of the knee joint line. No TTP of pes anserine bursa * Left knee: Full ROM. No swelling noted. No TTP of the knee joint line. No TTP of pes anserine bursa. Ankles * Right ankle: Good ankle dorsiflexion and plantar flexion. No swelling. No TTP of the ankle joint * Left ankle: Good ankle dorsiflexion and plantar flexion. No swelling. No TTP of the ankle joint Feet * Right foot: Negative squeeze test * Left foot: Negative squeeze test Tender points? * No tenderness to palpation of the bilateral trapezius, supraspinatus, anterior costochondral junctions, bilateral suboccipital muscle insertions SKIN No rashes Vital Signs: Last Vital Signs Pulse 64 04/15/25 13:22 BP 115/72 04/15/25 13:22 Pulse Ox 98 04/15/25 13:22 Oxygen Delivery Method Room Air 04/15/25 13:22 BMI result Body Mass Index 33.5 Office Meds ketorolac 30 mg/mL (1 mL) injection solution Performing Provider: Praveena Shipley MD Performing Location: [facility] Rheumatology-[facility] Administered by: Jeffrey Reid RN on 04/15/25 13:55 Dose Route Admin Location Dispensed Lot Number Expiration Date [employer] 30 mg IM left deltoid 1 mL [id number] 07/26/25 85010-866-18 [employer] Total Dispensed Waste 1 mL 0 % Results Reviewed Results Reviewed: Laboratory Tests 01/28/25 10:18 WBC 7.4 RBC 4.64 Hgb 12.0 Hct 37.4 Plt Count 266 Sodium 141 Potassium 4.4 Chloride 108 Carbon Dioxide 29 BUN 10 Creatinine 0.82 Assessment & Plan Assessment & Plan (1) Low back pain: Code(s): M54.50 - Low back pain, unspecified Qualifiers: Back pain laterality: unspecified Chronicity: chronic Sciatica presence: without sciatica Qualified Code(s): M54.50 - Low back pain, unspecified; G89.29 - Other chronic pain Plan: #Low back pain Patient is a 44 year old female with PsO here today for follow up Complaining of low back pain No evidence of synovitis or dactylitis No concern for PsA at this time Back pain is stable Encouraged patient to continue her home exercises (2) Trochanteric bursitis, left hip: Comment: Steroid injection: 09/04/23; 12/14/24 Code(s): M70.62 - Trochanteric bursitis, left hip Category: Medical Plan: #Left trochanteric bursitis Resolved (3) Muscle strain of right lower leg: Code(s): S86.911A - Strain of unspecified muscle(s) and tendon(s) at lower leg level, right leg, initial encounter Qualifiers: Encounter type: initial encounter Qualified Code(s): S86.911A - Strain of unspecified muscle(s) and tendon(s) at lower leg level, right leg, initial encounter Plan: #Left thigh muscle strain Likely secondary to her activity with snow blowing. We will give her Toradol to help with her pain Plan - IM Ketorolac 30mg Plan I spent 20 minutes reviewing the record and labs, taking a history, examining the patient, discussing the treatment plan and documenting in the medical record Orders: Orders AMB Ketorolac Injection Today S86.912K - Strain of unspecified muscle(s) and tendon(s) at lower leg level, right leg, initial encounter Coding Level of Care Code Est Pt Level 3 (53021) Diagnoses Chronic low back pain without sciatica, unspecified back pain laterality M54.50; G89.29 Back pain laterality: unspecified Chronicity: chronic Sciatica presence: without sciatica Trochanteric bursitis, left hip M70.62 Muscle strain of right lower leg, initial encounter S86.911P Encounter type: initial encounter
[2025-04-15 13:22] VITALS: BP 115/72; PULSE 64; O2SAT 98; BMI 33.5
--- NOTE | 2025-04-15 13:59 | AM.OFFVISNUR ---
Vital Signs 04/15/25 13:22 Height 5 ft 5 in Weight 201 lb 8.04 oz BMI 33.5 BP 115/72 Blood Pressure Location Lt brachial Position Sitting Pulse 64 Pulse Source Pulse Oximeter Pulse Oximetry (%) 98 Oxygen Delivery Method Room Air Intake Visit Reasons: 4months Allergies No Known Allergies Allergy (Verified 04/15/25 13:21) Medication List - Last Reconciled 04/15/25 by Praveena Shipley MD albuterol sulfate 90 mcg/actuation 2 puffs inhalation Q6H PRN docusate sodium 100 mg PO BID famotidine 20 mg PO fluticasone propionate 44 mcg/actuation (Flovent HFA) 2 puffs inhalation BID hydrocortisone 1% appl topical BID ibuprofen 600 mg PO Q6H PRN methocarbamol 500 mg PO TID PRN Office Meds ketorolac 30 mg/mL (1 mL) injection solution Performing Provider: Praveena Shipley MD Performing Location: [facility] Rheumatology-[facility] Administered by: Jeffrey Reid RN on 04/15/25 13:55 Dose Route Admin Location Dispensed Lot Number Expiration Date [facility] [employer] 30 mg IM left deltoid 1 mL [id number] 07/26/25 85785-262-96 [employer] Total Dispensed Waste 1 mL 0 % Assessment & Plan Assessment & Plan (1) Trochanteric bursitis, left hip: Comment: Steroid injection: 09/04/23; 12/14/24 Code(s): M70.62 - Trochanteric bursitis, left hip Category: Medical Orders: Orders AMB Ketorolac Injection Today S86.911A - Strain of unspecified muscle(s) and tendon(s) at lower leg level, right leg, initial encounter Coding Diagnoses Trochanteric bursitis, left hip M70.62
--- OUTSIDE RECORDS SUMMARY | 2025-04-15 14:59 | XMS_ITS | Encounter Summary ---
Author Organization [employer] Address [address] [facility] 7t [place] [address] Care Team Providers Care Agriscience Teacher Name Role Phone Genna Snow Primary Care Provider [phone] Encounter Details Date Type Department Care Team (Late st Contact Info) Description 05/30/2023 Abstract [facility] MEDICINE [address] [place], [place] [phone] Genna Snow ANP [address] [place], [place] [phone] Social History Tobacco Use Types Packs/Day Years [...] Description 05/24/2025 9:30 AM EST Office Visit [facility] MEDICINE [address] [place] [address] Genna Snow ANP [address] [place] [address] documented as of this encounter Visit Diagnoses Not on filedocumented in this encounter Additional Health Concerns Assessment Noted Time PHQ-9 Depression Total Score: 0 04/17/20 23 12:51 PM EST documented as of this encounter Care Teams Agriscience Teacher Relationship Specialty Start Date End Date Genna Snow ANP [address] [place] [phone] PCP - General Family Medicine 03/26/21 Daniela Joy RN Care Manager 01/22/23 Jeramie Damon Materials DirectorFabric Worker 10/28/23 documented as of this encounter
--- OUTSIDE RECORDS SUMMARY | 2025-04-15 14:59 | XMS_ITS | Encounter Summary ---
Author Organization [employer] Address [address] [facility] 7t [place] [address] Care Team Providers Care Screwhead Stoner And Polisher Name Role Phone Genna Snow Primary Care Provider [phone] Reason for Visit * Reason Onset Date Comments Med Refill 09/06/2024 Encounter Details Date Type Department Care Team ([facility] st Contact Info) Description 09/06/2024 Refill [facility] MEDICINE [address] [place], [place] [phone] Genna Snow ANP [address] [place], [place] [phone] Class 2 severe obesity with serious comorbidity [...] problems with any of the following? Mold;Lead [place] or Pipes;Water leaks 06/25/2024 Food Insecurity Answer [...] Description 05/24/2025 9:30 AM EST Office Visit [facility] MEDICINE [address] [place] [address] Genna Snow ANP [address] [place] [address] documented as of this encounter Visit Diagnoses Diagnosis Class 2 severe obesity with serious comorbidity and body mass index (BMI) of 36.0 to 36.9 in adult, unspecified obesity type documented in this encounter Additional Health Concerns Assessment Noted Time PHQ-9 Depression Total Score: 21 025 3:43 PM EST documented as of this encounter Care Teams Screwhead Stoner And Polisher Relationship Specialty Start Date End Date Genna Snow ANP [address] [place] [phone] PCP - General Family Medicine 03/26/21 Daniela Joy RN Care Manager 01/22/23 Jeramie Damon Broom WorkerOperations Staff Specialist Security 10/28/23 documented as of this encounter
--- OUTSIDE RECORDS SUMMARY | 2025-04-15 14:59 | XMS_ITS | Encounter Summary ---
Author Organization [facility] Address [address] [place] [address] Care Team Providers Care Hydraulic Press In Operator Name Role Phone Genna Snow NP Primary Care Provider [phone] Encounter Details Date Type Department Care Team (Latest Contact Info) Description 04/23/2024 Lab Requisition [facility] - Main Lab [address] [facility] [place] [phone] Bertha Grewal MD [address] [phone] Unspecified abnormal cytological findings in specimens from [...] Care Team (Late st Contact Info) Description 07/12/2025 10:30 AM EDT Office Visit [facility] Hematology Oncology [address] [place] [phone] Savannah Rangel DO [address] [place] [address] documented as of this encounter Procedures Procedure [...] LAB MICROBIOLOGY METHOD 04/23/2024 1:37 PM EST [facility] Chlamydia, RNA Probe Negative Negative LAB MICROBIOLOGY METHOD 04/23/2024 1:37 PM [facility] Brushing/Spatula Cervix uteri structure / Unknown 04/22/2024 04/23/2024 7:04 AM EST us Bertha Grewal MD LAB CYTOLOGY ORDERABLES Final Result [facility] [address] [place] [address], * Pap smear (04/22/2024 12:00 AM EST) Interpretation Negative for intraepithelial lesion or malignancy 04/26/2024 4:26 PM EST [facility] at 1626 EST General Categorization Negative 04/26/2024 4:26 PM [facility] Other Findings Shift in ramin suggestive of bacterial vaginosis 04/26/2024 4:26 PM EST [facility] Specimen Adequacy Satisfactory for evaluation, endocervical/valente sformation zone component absent 04/26/2024 4:26 PM EST [facility] Pap Methodology Liquid Based Pap Test 04/26/2024 4:26 PM EST [facility] Disclaimer The Pap test is a screening test which carries an inherent false negative rate. These test results should be correlated with the patient's clinical findings and history. This Pap test was processed using an automated screening system. Technical cytopathology services provided by [facility], at [address] [place] [address] (CLIA # [id number]/Penny Ozuna MD, Genetic Supervisor.) 04/26/2024 4:26 PM [facility] Console Pap Interpretation Reported 04/26/2024 4:26 PM [facility] Brushing/Spatula Cervix uteri structure / Unknown 04/22/2024 04/23/2024 7:04 AM EST us Bertha Grewal MD LAB CYTOLOGY ORDERABLES Final Result [facility] [address] [place] [address], documented in this encounter Visit Diagnoses Diagnosis Unspecified abnormal cytological findings in specimens from cervix uteri Encounter for gynecological examination (general) (routine) without abnormal findings documented in this encounter Care Teams Hydraulic Press In Operator Relationship Specialty Start Date End Date Genna Snow NP [address] [place] [phone] PCP - General 01/30/22 documented as of this encounter
--- OUTSIDE RECORDS SUMMARY | 2025-04-15 14:59 | XMS_ITS | Encounter Summary ---
Author Organization [employer] Address [address] [facility] 7t [place] [address] Care Team Providers Care College And Career Counselor Name Role Phone Genna Snow Primary Care Provider Encounter Details Date Type Department Care Team (Late st Contact Info) Description 03/10/2023 Abstract [facility] [address] [place], [place] [phone] Genna Snow ANP [address] [place], [place] [phone] Social History Tobacco Use Types Packs/Day Years [...] Description 05/24/2025 9:30 AM EST Office Visit [facility] MEDICINE [address] [place] [address] Genna Snow ANP [address] [place] [address] documented as of this encounter Visit Diagnoses Not on filedocumented in this encounter Care Teams College And Career Counselor Relationship Specialty Start Date End Date Genna Snow ANP [address] [place] [phone] PCP - General Family Medicine 03/26/21 Daniela Joy RN Care Manager 01/22/23 Jeramie Damon Utilization Review NurseJoint Machine Operator 10/28/23 documented as of this encounter
--- OUTSIDE RECORDS SUMMARY | 2025-04-15 14:59 | XMS_ITS | Clinical Summary ---
Author Organization [facility] Prior to 09/25/24 Address [address] [place] [address] Care Team Providers Care Transfer Controller Name Role Phone Genna Snow NP Primary Care Provider [phone] Allergies Active Allergy Reactions Criticality Noted Date [...] 10/17/2021, 04/25/2021, 04/04/2021 Influenza Vaccine (#1) 2024 2, 03/26/2021 Pneumococcal Vaccine Aged Out No long er eligible based on patient's age to complete this topic RSV Ped < 20 months Aged Out No longe r eligible based on patient's age to complete this topic Care Teams Transfer Controller Relationship Specialty Start Date End Date Genna Snow NP [address] [place] [phone] PCP - General Nurse Practitioner 01/30/22
--- OUTSIDE RECORDS SUMMARY | 2025-04-15 14:59 | XMS_ITS | Encounter Summary ---
Author Organization [employer] Address [address] [facility] 7t [place] [address] Care Team Providers Care Purchasing Internship Name Role Phone Genna Snow Primary Care Provider [phone] Reason for Visit * Reason Comments Med Refill Encounter Details Date Type Department Care Team ([facility] st Contact Info) Description 06/19/2024 Refill [facility] MEDICINE [address] [place], [place] [phone] Genna Snow ANP [address] [place], [place] [phone] Class 2 obesity with body mass index [...] 9:30 AM EST Office Visit [facility] MEDICINE [address] [place] [phone] Genna Snow ANP [address] [place] [address] documented as of this encounter Visit Diagnoses Diagnosis Class 2 obesity with body mass index (BMI) of 38.0 to 38.9 in adult, unspecified obesity type, unspecified whether serious comorbidity present documented in this encounter Additional Health Concerns Assessment Noted Time PHQ-9 Depression Total Score: 19 024 12:50 PM EDT documented as of this encounter Care Teams Purchasing Internship Relationship Specialty Start Date End Date Genna Snow ANP [address] [place] [address] PCP - General Family Medicine 03/26/21 Daniela Joy RN Care Manager 01/22/23 Jeramie Damon Whiteprinting Machine OperatorSenior Test Engineer 10/28/23 documented as of this encounter
--- OUTSIDE RECORDS SUMMARY | 2025-04-15 14:59 | XMS_ITS | Encounter Summary ---
Author Organization [employer] Address [address] [facility] 7t [place] [address] Care Team Providers Care Load Dropper Name Role Phone Genna Snow Primary Care Provider [phone] Reason for Visit * Reason Onset Date Comments Med Refill 11/19/2024 Encounter Details Date Type Department Care Team ([facility] st Contact Info) Description 11/19/2024 Refill [facility] MEDICINE [address] [place], [place] [phone] Genna Snow ANP [address] [place], [place] [phone] Class 2 severe obesity with serious comorbidity [...] with others, in a hotel, in a mcc, living outside on the street, on a beach, in a car, or in a park 06/25/[address] you li ve. Do you have problems with any of the following? Mold;Lead [place] or Pipes;Water leaks 06/25/2024 Food Insecurity Answer [...] Description 05/24/2025 9:30 AM EST Office Visit [facility] MEDICINE [address] [place] [address] Genna Snow ANP [address] [place] [address] documented as of this encounter Visit Diagnoses Diagnosis Class 2 severe obesity with serious comorbidity and body mass index (BMI) of 36.0 to 36.9 in adult, unspecified obesity type documented in this encounter Additional Health Concerns Assessment Noted Time PHQ-9 Depression Total Score: 21 025 3:43 PM EST documented as of this encounter Care Teams Load Dropper Relationship Specialty Start Date End Date Genna Snow ANP [address] [place] [phone] PCP - General Family Medicine 03/26/21 Daniela Joy RN Care Manager 01/22/23 Jeramie Damon Garage LaborerNeedleworker 10/28/23 documented as of this encounter
--- OUTSIDE RECORDS SUMMARY | 2025-04-15 14:59 | XMS_ITS | Encounter Summary ---
Author Organization [employer] Address [address] [facility] [address] 7t [place] [address] Care Team Providers Care Aquatic Ecologist Name Role Phone Genna Snow Primary Care Provider [phone] Encounter Details Date Type Department Care Team (Late st Contact Info) Description 08/25/2024 Orders Only [facility]S [address] [place] [address] Josey Gray Social History Tobacco Use Types [...] problems with any of the following? Mold;Lead [place] or Pipes;Water leaks 06/25/2024 Food Insecurity Answer [...] Description 05/24/2025 9:30 AM EST Office Visit [facility] MEDICINE [address] [place] [phone] Genna Snow ANP [address] [place] [address] documented as of this encounter Procedures Procedure [...] documented as of this encounter Care Teams Aquatic Ecologist Relationship Specialty Start Date End Date Genna Snow ANP [address] [place] [phone] PCP - General Family Medicine 03/26/21 Daniela Joy metal mine inspector 01/22/23 Jeramie Damon Reception Centre ManagerHistoric Interpreter 10/28/23 documented as of this encounter
--- OUTSIDE RECORDS SUMMARY | 2025-04-15 14:59 | XMS_ITS | Encounter Summary ---
Author Organization [employer] Address [address] [facility] 7t [place] [address] Care Team Providers Care Prenatal Teacher Name Role Phone Genna Snow Primary Care Provider [phone] Reason for Visit * Reason Onset Date Comments Nurse Triage 06/09/2024 Encounter Details Date Type Department Care Team ([facility] st Contact Info) Description 06/09/2024 Telephone [facility] MED[facility] [address] [place], [place] [phone] Genna Snow ANP [address] [place], [place] [phone] Nurse Triage Social History Tobacco Use Types [...] sitting position if dizziness anticipated. Pt reports is near by when Pt doesn't feel well. ASK [...] Reason: Trouble walking Please contact pt at [phone]. documented in this encounter Plan of Treatment Upcoming Encounters Date Type Department Care Team ([facility] st Contact Info) Description 05/24/2025 9:30 AM EST Office Visit [facility] [address] [place] [address] Genna Snow ANP 230 [place] [address] documented as of this encounter Visit Diagnoses Not on filedocumented in this encounter Additional Health Concerns Assessment Noted Time PHQ-9 Depression Total Score: 19 024 12:50 PM EDT documented as of this encounter Care Teams Prenatal Teacher Relationship Specialty Start Date End Date Genna Snow ANP [address] [place] [address] PCP - General Family Medicine 03/26/21 Daniela Joy RN Care Manager 01/22/23 Jeramie Damon Neurodiagnostic TechCyber Threat Analyst 10/28/23 documented as of this encounter
--- OUTSIDE RECORDS SUMMARY | 2025-04-15 14:59 | XMS_ITS | Encounter Summary ---
Author Organization [employer] Address 75 [facility] 7t [place] [address] Care Team Providers Care Planting Material Unloader Name Role Phone Genna Snow Primary Care Provider [phone] Encounter Details Date Type Department Care Team (Latest Contact Info) Description 04/14/2025 Travel Social History Tobacco Use Types Packs/Day [...] with others, in a hotel, in a retirement, living outside on the street, on a beach, in a car, or in a park 06/25/[address] you li ve. Do you have problems with any of the following? Mold;Lead [place]etr[place] or Pipes;Water leaks 06/25/2024 Food Insecurity Answer [...] Description 05/24/2025 9:30 AM EST Office Visit [facility]INE 230 [place] [address] Genna Snow ANP [address] [place] [address] documented as of this encounter Visit Diagnoses Not on filedocumented in this encounter Additional Health Concerns Assessment Noted Time PHQ-9 Depression Total Score: 21 025 3:43 PM EST documented as of this encounter Care Teams Planting Material Unloader Relationship Specialty Start Date End Date Genna Snow ANP [address] [place] [address] PCP - General Family Medicine 03/26/21 Daniela Joy RN Care Manager 01/22/23 Jeramie Damon Synthetic PlastererLead Setter 10/28/23 documented as of this encounter
--- OUTSIDE RECORDS SUMMARY | 2025-04-15 14:59 | XMS_ITS | Encounter Summary ---
Author Organization [employer] Address 75 [facility] 7t [place] [address] Care Team Providers Care Machine Tester Name Role Phone Genna Snow Primary Care Provider [phone] Reason for Visit * Reason Comments Med Refill Encounter Details Date Type Department Care Team ([facility] st Contact Info) Description 12/30/2023 Refill [facility] MEDICINE 230 [place], [place] [phone] Genna Snow ANP 230 [place], [place] [phone] Depressive disorder; Heartburn Social History Tobacco Use [...] Description 05/24/2025 9:30 AM EST Office Visit [facility] MEDICINE [address] [place] [address] Genna Snow ANP 230 [place] [address] documented as of this encounter Visit Diagnoses Diagnosis Depressive disorder Depressive disorder, not elsewhere classified Heartburn documented in this encounter Additional Health Concerns Assessment Noted Time PHQ-9 Depression Total Score: 19 024 12:50 PM EDT documented as of this encounter Care Teams Machine Tester Relationship Specialty Start Date End Date Genna Snow ANP [address] [place] [address] PCP - General Family Medicine 03/26/21 Daniela Joy RN Care Manager 01/22/23 Jeramie Damon Ios Software EngineerPhotographer Apprentice Lithographic 10/28/23 documented as of this encounter
--- OUTSIDE RECORDS SUMMARY | 2025-04-15 14:59 | XMS_ITS | Clinical Summary ---
Author Organization [facility] Address [address] [place] [address] Phone Care Team Providers Care Spring Repairer Helper Hand Name Role Phone Genna Snow NP Primary Care Provider [phone] Allergies No known active allergies Medications ibuprofen [...] skin every 7 (seven) days. 5 Active Zepbound 5 mg/0.5 mL injection Inject 0.5 mL (5 mg total) under the skin every 7 (seven) days. 5 Active Active Problems Problem Noted Date Diagnosed Date Iron deficiency anemia due to chronic blood loss 02/27/2022 Ureteral stone 08/29/2016 Overview (02/23/2024): Seeing urology Bipolar disorder 08/23/2014 Gestational diabetes mellitus 08/23/2014 Encounters Date Type Department Care Team Description 04/05/2025 2:00 PM EST - 04/05/2025 11:59 PM EST Hospital Encounter [facility] Infusion Center [address] [place] [phone] Iron deficiency anemia due to chronic blood loss (Primary Dx) Discharge Disposition: Home or Self Care 03/23/2025 11:14 AM EST - 03/23/2025 11:59 PM [facility] Hospital Encounter [facility] Infusion Center [address] [place] [phone] Iron deficiency anemia due to chronic blood loss (Primary Dx) Discharge Disposition: Home or Self Care 03/11/2025 Telephone [facility] Hematology Oncology [address] [place] [phone] Savannah Rangel DO 02/14/2025 10:45 AM EDT Office Visit [facility] Hematology Oncology [address] [place] [phone] Savannah Rangel DO Iron deficiency anemia due to chronic blood loss (Primary Dx) 01/17/2025 7:58 PM EDT - 01/17/2025 8:35 PM EDT Emergency [facility] Emergency [address] [place] [address] Anish Mcgowan MD Hypoglycemia (Primary [...] Sign Reading Time Taken Comments Blood Pressure 116/80 04/05/2025 2:10 PM EST Pulse 78 04/05/2025 2:10 PM EST Temperature 36.9 C (98.4 F) 04/05/2025 2:10 PM EST Respiratory Rate 18 04/05/2025 2:10 PM EST Oxygen Saturation 98% 04/05/2025 2:10 PM EST Inhaled Oxygen Concentration - - Weight 88 kg (194 lb) 02/14/2025 10:46 AM EDT Height 165.1 cm (5' 5 ) 02/14/2025 10:46 AM EDT Body Mass Index 32.28 02/14/2025 10:46 AM EDT Plan of Treatment Upcoming Encounters Date Type Department Care Team (Late st Contact Info) Description 07/12/2025 10:30 AM EDT Office Visit [facility] Hematology Oncology [address] [place] [phone] Savannah Rangel, DO [address] [place] [address] Health Maintenance Due Date Last Done Comments Social Influencers of Health Screening 04/10/2022 HPV Vaccines (2 - 3-dose SCDM series) 12/16/2023 11/18/2023 Depression Screening 04/28/2024 Breast Cancer Screening 10/06/2025 10/07/2023 Cervical Cancer Screening: Pap Smear 04/22/2027 04/22/2024, 09/23/2014 Cholesterol Screening (Lipid Panel) 01/28/2030 01/28/2025, 11/18/2023, 07/03/2016 DTaP,Tdap,and Td Vaccines (3 - [...] Procedure Name Priority Date/Time Associated Diagnosis Comments FERRITIN Routine 02/14/2025 11:24 AM EDT Iron deficiency anemia due to chronic blood loss IRON AND TIBC Routine 02/14/2025 11:24 AM EDT Iron deficiency anemia due to chronic blood loss ECG ANNOTATED 01/18/2025 POCT GLUCOSE BLOOD Routine [...] Relevant to Health Maintenance Results * (ABNORMAL) Iron and TIBC (02/14/2025 11:24 AM EDT) Iron 29(L) 40 - 150 mcg/dL LAB CHEMISTRY METHOD 02/14/2025 12:17 PM EDT [facility] TIBC 359 250 - 450 mcg/dL LAB CHEMISTRY METHOD 02/14/2025 12:17 PM EDT [facility] Iron Saturation 8(L) 15 - 50 % LAB CHEMISTRY METHOD 02/14/2025 12:17 PM EDT [facility] Blood Venous blood specimen / Unknown Venipuncture / Unknown 02/14/2025 11:24 AM EDT 02/14/2025 11:30 AM EDT Savannah Alisha Rangel DO LAB BLOOD ORDERABLES Final Result Performing Organization Address City/[facility]/ZIP Co de Phone Number [facility] [address] [place] [address], [place] [phone] * (ABNORMAL) Ferritin (02/14/2025 11:24 AM EDT) Pathologist [facility] Ferritin 6(L) 8 - 252 ng/mL LAB CHEMISTRY METHOD 02/14/2025 12:27 PM EDT [facility] Blood Venous blood specimen / Unknown Venipuncture / Unknown 02/14/2025 11:24 AM EDT 02/14/2025 11:30 AM EDT Savannah Alisha Rangel DO LAB BLOOD ORDERABLES Final Result Performing Organization Address [facility]/ZIP Co de Phone Number [facility] [address] [place] [address], [place] [phone] * ECG-Annotated (01/18/2025) Provider Onbase MD ECG ORDERABLES Final Result * POCT Glucose, blood (01/17/2025 8:05 PM EDT) Glucose POCT 98 70 - 100 mg/dL 01/18/2025 5:35 AM EDT [facility] Blood Capillary blood specimen / Unknown 01/17/2025 8:05 PM EDT 01/18/2025 5:36 AM EDT Anish Mcgowan MD LAB POINT OF CAR E TEST DOCKED DEVICE UNSOLICITED RESULTS Final Result [facility] [address] [place] [address], * (ABNORMAL) CBC auto differential (01/17/2025 6:20 PM EDT) WBC 10.6 4.8 - 10.8 K/mcL LAB HEMETOLOGY METHOD 01/17/2025 6:57 PM EDT [facility] RBC 4.70 3.80 - 4.80 M/mcL LAB HEMETOLOGY METHOD 01/17/2025 6:57 PM EDT [facility] Hemoglobin 12.1 11.5 - 16.0 g/dL LAB HEMETOLOGY METHOD 01/17/2025 6:57 PM EDT [facility] Hematocrit 38.7 35.0 - 47.0 % LAB HEMETOLOGY METHOD 01/17/2025 6:57 PM EDT [facility] MCV 82.7 79.0 - 98.0 FL LAB HEMETOLOGY METHOD 01/17/2025 6:57 PM EDT [facility] MCH 25.9(L) 27.0 - 32.0 pcg LAB HEMETOLOGY METHOD 01/17/2025 6:57 PM EDT [facility] MCHC 31.3(L) 32.0 - 37.0 g/dL LAB HEMETOLOGY METHOD 01/17/2025 6:57 PM EDT [facility] RDW 14.8 11.0 - 15.0 % LAB HEMETOLOGY METHOD 01/17/2025 6:57 PM EDT [facility] Platelets 306 130 - 400 K/mcL LAB HEMETOLOGY METHOD 01/17/2025 6:57 PM EDT [facility] MPV 9.6 7.0 - 11.0 FL LAB HEMETOLOGY METHOD 01/17/2025 6:57 PM EDT [facility] NRBC 0.0 <1.0 % LAB HEMETOLOGY METHOD 01/17/2025 6:57 PM EDT [facility] NRBC Absolute 0.00 <0.10 K/mcL LAB HEMETOLOGY METHOD 01/17/2025 6:57 PM EDT [facility] Neutrophils Relative 63.5 % LAB HEMETOLOGY METHOD 01/17/2025 6:57 PM EDT [facility] Lymphocytes Relative 28.2 % LAB HEMETOLOGY METHOD 01/17/2025 6:57 PM EDT [facility] Monocytes Relative 7.2 % LAB HEMETOLOGY METHOD 01/17/2025 6:57 PM EDT [facility] Eosinophils Relative 0.5 % LAB HEMETOLOGY METHOD 01/17/2025 6:57 PM EDT [facility] Basophils Relative 0.3 % LAB HEMETOLOGY METHOD 01/17/2025 6:57 PM EDT [facility] Immature Granulocytes Relative 0.3 % LAB HEMETOLOGY METHOD 01/17/2025 6:57 PM EDT [facility] Neutrophils Absolute 6.72 1.50 - 7.00 K/mcL LAB HEMETOLOGY METHOD 01/17/2025 6:57 PM EDT [facility] Lymphocytes Absolute 2.98 1.00 - 5.00 K/mcL LAB HEMETOLOGY METHOD 01/17/2025 6:57 PM EDT [facility] Monocytes Absolute 0.76 0.20 - 1.00 K/mcL LAB HEMETOLOGY METHOD 01/17/2025 6:57 PM EDT [facility] Eosinophils Absolute 0.05 0.00 - 0.50 K/mcL LAB HEMETOLOGY METHOD 01/17/2025 6:57 PM EDT [facility] Basophils Absolute 0.03 0.00 - 0.20 K/mcL LAB HEMETOLOGY METHOD 01/17/2025 6:57 PM EDT [facility] Immature Granulocytes Absolute 0.03 0.00 - 0.03 K/mcL LAB HEMETOLOGY METHOD 01/17/2025 6:57 PM [facility] Blood Venous blood specimen / Unknown Venipuncture / Unknown 01/17/2025 6:20 PM EDT 01/17/2025 6:42 PM EDT us Adam Amezcua MD LAB BLOOD ORDERABLES Final R esult [facility] [address] [place] [address], [place] [phone] * (ABNORMAL) Comprehensive metabolic panel (01/17/2025 6:20 PM EDT) Sodium 140 133 - 145 mmol/L LAB CHEMISTRY METHOD 01/17/2025 7:06 PM [facility] Potassium 3.6 3.5 - 5.5 mmol/L LAB CHEMISTRY METHOD 01/17/2025 7:06 PM [facility] Chloride 105 96 - 110 mmol/L LAB CHEMISTRY METHOD 01/17/2025 7:06 PM [facility] CO2 31 21 - 32 mmol/L LAB CHEMISTRY METHOD 01/17/2025 7:06 PM [facility] Anion Gap 4 3 - 11 LAB CHEMISTRY METHOD 01/17/2025 7:06 PM [facility] Glucose 69(L) 70 - 100 mg/dL LAB CHEMISTRY METHOD 01/17/2025 7:06 PM [facility] BUN 13 5 - 25 mg/dL LAB CHEMISTRY METHOD 01/17/2025 7:06 PM [facility] Creatinine 0.95 0.50 - 1.10 mg/dL LAB CHEMISTRY METHOD 01/17/2025 7:06 PM EDT [facility] eGFR 76 >=60 mL/min/1. 73m2 LAB CHEMISTRY METHOD 01/17/2025 7:06 PM T [facility] Comment:Calculation based on the Chronic Kidney Disease Epidemiology Collaboration (CKD-EPI) equation refit without adjustment for race. BUN/Creatinine Ratio 13.7 LAB CHEMISTRY METHOD 01/17/2025 7:06 PM [facility] Calcium 9.2 8.5 - 10.5 mg/dL LAB CHEMISTRY METHOD 01/17/2025 7:06 PM [facility] AST (SGOT) 10 10 - 42 unit/L LAB CHEMISTRY METHOD 01/17/2025 7:06 PM [facility] ALT (SGPT) 17 10 - 60 unit/L LAB CHEMISTRY METHOD 01/17/2025 7:06 PM [facility] Alkaline Phosphatase 63 42 - 121 unit/L LAB CHEMISTRY METHOD 01/17/2025 7:06 PM [facility] Total Protein 7.0 6.0 - 8.0 g/dL LAB CHEMISTRY METHOD 01/17/2025 7:06 PM [facility] Albumin 3.9 3.2 - 5.0 g/dL LAB CHEMISTRY METHOD 01/17/2025 7:06 PM [facility] Total Bilirubin 0.3 0.0 - 1.4 mg/dL LAB CHEMISTRY METHOD 01/17/2025 7:06 PM [facility] Blood Venous blood specimen / Unknown Venipuncture / Unknown 01/17/2025 6:20 PM EDT 01/17/2025 6:42 PM EDT us Adam Amezcua MD LAB BLOOD ORDERABLES Final R esult [facility] [address] [place] [address], [place] [phone] * ECG 12 lead (01/17/2025 6:14 PM EDT) Ventricular Rate ECG 53 BPM GEMUSE Atrial Rate 53 BPM GEMUSE P-R Interval 168 ms GEMUSE QRS Duration 88 ms GEMUSE Q-T Interval 426 ms GEMUSE QTc 399 ms GEMUSE P Wave [place] 65 degrees GEMUSE R [place] 72 degrees GEMUSE T [place] 45 degrees GEMUSE ECG Interpretation Sinus bradycardia Otherwise normal ECG When compared with ECG of 26-JAN-2022 15:16, No significant change was found Confirmed by DREA MURRAY ([id number]) on 01/19/2025 9:44:00 PM GEMUSE 01/17/2025 6:14 PM EDT 01/19/2025 9:44 PM EDT us Adam Amezcua MD ECG ORDERABLES Final Result GEMUSE * Pap smear (04/22/2024 12:00 AM EST) Interpretation Negative for intraepithelial lesion or malignancy 04/26/2024 4:26 PM EST [facility] at 1626 EST General Categorization Negative 04/26/2024 4:26 PM [facility] Other Findings Shift in ramin suggestive of bacterial vaginosis 04/26/2024 4:26 PM [facility] Specimen Adequacy Satisfactory for evaluation, endocervical/valente sformation zone component absent 04/26/2024 4:26 PM EST [facility] Pap Methodology Liquid Based Pap Test 04/26/2024 4:26 PM [facility] Disclaimer The Pap test is a screening test which carries an inherent false negative rate. These test results should be correlated with the patient's clinical findings and history. This Pap test was processed using an automated screening system. Technical cytopathology services provided by [facility], at [address] [place] [address] (CLIA # [id number]/Penny Ozuna MD, Chemical Compounder Helper.) 04/26/2024 4:26 PM EST [facility] Console Pap Interpretation Reported 04/26/2024 4:26 PM EST [facility] Brushing/Spatula Cervix uteri structure / Unknown 04/22/2024 04/23/2024 7:04 AM EST Bertha Grewal MD LAB CYTOLOGY ORDERABLES Final Result [facility] [address] [place] [address], [place] [phone] * MG Mammo Digital Screening w Toribio [...] Blood Venous blood specimen / Unknown Result [facility] Historical Provider LAB BLOOD ORDERABLES Shelli l Result * HIV Screening (12/21/2015) Pathologist [facility] HIV Screening Abstracted Historical Provider HEALTH MAINTENANCE Final Result * Hepatitis C Screening (12/21/2015) Pathologist [facility] Hepatitis C Screening Abstracted Result [facility] Historical Provider HEALTH MAINTENANCE Final Result from Last 3 Months or Most Recently Relevant to Health Maintenance Insurance [address] [place] [address] [place] Care Teams Spring Repairer Helper Hand Relationship Specialty Start Date End Date Genna Snow NP [address] [phone] PCP - General 01/30/22
--- OUTSIDE RECORDS SUMMARY | 2025-04-15 14:59 | XMS_ITS | Encounter Summary ---
Author Organization [email or web address] Address 75 [facility] 7t [place] [address] Care Team Providers Care Inspector Balance Bridge Name Role Phone Genna Snow Primary Care Provider [phone] Reason for Visit * Reason Onset Date Comments Med Refill 12/16/2024 Encounter Details Date Type Department Care Team ([facility] st Contact Info) Description 12/16/2024 Refill [facility] [address] [place], [place] [phone] Genna Snow ANP [address] [place], [place] [phone] Class 2 severe obesity with serious comorbidity [...] with others, in a hotel, in a half-way, living outside on the street, on a beach, in a car, or in a park 06/25/[address] you li ve. Do you have problems with any of the following? Mold;Lead [place] or Pipes;Water leaks 06/25/2024 Food Insecurity Answer [...] Description 05/24/2025 9:30 AM EST Office Visit [facility] [address] [place] [address] Genna Snow ANP [address] [place] [address] documented as of this encounter Visit Diagnoses Diagnosis Class 2 severe obesity with serious comorbidity and body mass index (BMI) of 36.0 to 36.9 in adult, unspecified obesity type documented in this encounter Additional Health Concerns Assessment Noted Time PHQ-9 Depression Total Score: 21 025 3:43 PM EST documented as of this encounter Care Teams Inspector Balance Bridge Relationship Specialty Start Date End Date Genna Snow ANP [address] [place] [address] PCP - General Family Medicine 03/26/21 Daniela Joy RN Care Manager 01/22/23 Jeramie Damon Color SpecialistPrecision Instrument And Tool Maker 10/28/23 documented as of this encounter
--- OUTSIDE RECORDS SUMMARY | 2025-04-15 14:59 | XMS_ITS | Encounter Summary ---
Author Organization [employer] Address 75 [facility] 7t [place] [address] Care Team Providers Care Senior Java Web Application Developer Name Role Phone Genna Snow Primary Care Provider [phone] Reason for Visit * Reason Comments Med Refill Encounter Details Date Type Department Care Team ([facility] st Contact Info) Description 06/17/2024 Refill [facility] MEDICINE [address] [place], [place] [phone] Genna Snow ANP [address] [place], [place] [phone] Class 2 obesity with body mass index [...] Description 05/24/2025 9:30 AM EST Office Visit [facility] MED[facility]INE [address] [place] [address] Genna Snow ANP [address] [place] [address] documented as of this encounter Visit Diagnoses Diagnosis Class 2 obesity with body mass index (BMI) of 38.0 to 38.9 in adult, unspecified obesity type, unspecified whether serious comorbidity present documented in this encounter Additional Health Concerns Assessment Noted Time PHQ-9 Depression Total Score: 19 024 12:50 PM EDT documented as of this encounter Care Teams Senior Java Web Application Developer Relationship Specialty Start Date End Date Genna Snow ANP [address] [place] [address] PCP - General Family Medicine 03/26/21 Daniela Joy RN Care Manager 01/22/23 Jeramie Damon Linoleum Tile Floor LayerLiner Man 10/28/23 documented as of this encounter
--- OUTSIDE RECORDS SUMMARY | 2025-04-15 14:59 | XMS_ITS | Encounter Summary ---
Author Organization [employer] Address 75 [facility] 7t [place] [address] Care Team Providers Care Side Sawyer Name Role Phone Genna Snow Primary Care Provider [phone] Reason for Visit * Reason Onset Date Comments Med Refill 10/12/2024 Encounter Details Date Type Department Care Team ([facility] st Contact Info) Description 10/12/2024 Refill [facility] MED[facility]INE [address] [place], [place] [phone] Genna Snow ANP [address] [place], [place] [phone] Heartburn Social History Tobacco Use Types Packs/Day [...] problems with any of the following? Mold;Lead [place] or Pipes;Water leaks 06/25/2024 Food Insecurity Answer [...] Description 05/24/2025 9:30 AM EST Office Visit [facility] [address] [place] [address] Genna Snow ANP [address] [place] [address] documented as of this encounter Visit Diagnoses Diagnosis Heartburn documented in this encounter Additional Health Concerns Assessment Noted Time PHQ-9 Depression Total Score: 21 025 3:43 PM EST documented as of this encounter Care Teams Side Sawyer Relationship Specialty Start Date End Date Genna Snow ANP [address] [place] [address] PCP - General Family Medicine 03/26/21 Daniela Joy dietetic intern 01/22/23 Jeramie Damon Automotive EngineerGrocery Buyer 10/28/23 documented as of this encounter
--- OUTSIDE RECORDS SUMMARY | 2025-04-15 14:59 | XMS_ITS | Encounter Summary ---
Author Organization [employer] Address 75 [facility] 7t [place] [address] Care Team Providers Care Chief Operator Synthesis Name Role Phone Genna Snow Primary Care Provider [phone] Reason for Visit * Reason Onset Date Comments Med Refill 10/11/2024 Encounter Details Date Type Department Care Team ([facility] st Contact Info) Description 10/11/2024 Refill [facility] [address] [place], [place] [phone] Genna Snow ANP 230 [place], [place] [phone] Class 2 severe obesity with serious comorbidity [...] problems with any of the following? Mold;Lead [place] or Pipes;Water leaks 06/25/2024 Food Insecurity Answer [...] Description 05/24/2025 9:30 AM EST Office Visit [facility] [address] [place] [address] Genna Snow ANP [address] [place] [address] documented as of this encounter Visit Diagnoses Diagnosis Class 2 severe obesity with serious comorbidity and body mass index (BMI) of 36.0 to 36.9 in adult, unspecified obesity type documented in this encounter Additional Health Concerns Assessment Noted Time PHQ-9 Depression Total Score: 21 025 3:43 PM EST documented as of this encounter Care Teams Chief Operator Synthesis Relationship Specialty Start Date End Date Genna Snow ANP [address] [place] [address] PCP - General Family Medicine 03/26/21 Daniela Joy RN Care Manager 01/22/23 Jeramie Damon Oral Communication InstructorLamp Shade Maker 10/28/23 documented as of this encounter
--- OUTSIDE RECORDS SUMMARY | 2025-04-15 14:59 | XMS_ITS | Encounter Summary ---
Author Organization [email or web address] Address [address] [place] [address] Care Team Providers Care Community Health Educator Name Role Phone Genna Snow Primary Care Provider [phone] Reason for Visit * Reason Onset Date Comments Med Refill 01/17/2025 Encounter Details Date Type Department Care Team ([facility] st Contact Info) Description 01/17/2025 Refill [facility] [address], [place] [phone] Araceli Sinha MD [address] [place], [place] [phone] Class 2 severe obesity with serious comorbidity [...] problems with any of the following? Mold;Lead [place];Water leaks 06/25/2024 Food Insecurity Answer [...] Description 05/24/2025 9:30 AM EST Office Visit [facility] [address] [place] [phone] Genna Snow ANP [address] [place] [phone] documented as of this encounter Visit Diagnoses Diagnosis Class 2 severe obesity with serious comorbidity and body mass index (BMI) of 36.0 to 36.9 in adult, unspecified obesity type documented in this encounter Additional Health Concerns Assessment Noted Time PHQ-9 Depression Total Score: 21 025 3:43 PM EST documented as of this encounter Care Teams Community Health Educator Relationship Specialty Start Date End Date Genna Snow ANP [address] [place] [phone] PCP - General Family Medicine 03/26/21 Daniela Joy cloth sponger 01/22/23 Jeramie Damon Vice President Of CommunicationsCompliance Clerk 10/28/23 documented as of this encounter
--- OUTSIDE RECORDS SUMMARY | 2025-04-15 15:00 | XMS_ITS | Clinical Summary ---
Author Organization [employer] Address [address] [facility] [address] [place] [address] Care Team Providers Care Java Engineer Name Role Phone Margoth Baig Primary Care Provider [phone] Allergies Active Allergy Reactions Criticality Noted Date [...] the morning, at noon, and at bedtime. 2 Active Multiple Vitamins-Mineral s (Hair/Skin/Nails ) capsule Active omeprazole (PriLOSEC) [address] capsule Take 1 capsule by mouth before breakfast. 2 Active albuterol (2.5 MG/3ML) 0.083% nebulizer solutionIndicati ons:Mild persistent asthma with acute exacerbation Take 3 mL by nebulization every 6 (six) hours if needed for shortness of breath or wheezing. 75 mL 1 4 Active Ventolin HFA 108 (90 Base) MCG/ACT inhalerIndicatio ns:Mild persistent asthma with acute exacerbation INHALE 2 PUFFS EVERY 6 HOURS NEEDED FOR SHORTNESS OF BREATH 18 g 1 4 Active PARoxetine (Paxil) 20 MG tabletIndication s:Depressive disorder Take 1 tablet (20 mg) by mouth in the morning. 90 tablet 3 5 Active Blood Pressure kitIndications:E levated blood pressure reading without diagnosis of hypertension 1 each 2 times daily. 1 kit 5 026 Active budesonide-formo terol (Symbicort) 160-4.5 MCG/ACT inhalerIndicatio ns:Mild persistent asthma with acute exacerbation Inhale 2 puffs in the morning and at bedtime. Rinse mouth with water after use to reduce aftertaste and incidence of candidiasis. Do not swallow. 1 each 11 5 026 Active Blood Glucose Monitoring Suppl (FreeStyle Lite) w/Device kitIndications:H ypoglycemia 1 each 2 times daily. 1 kit 5 Active FREESTYLE LITE test stripIndications :Hypoglycemia Use as instructed twice daily 100 each 12 5 Active Lancets 33G miscIndications: Hypoglycemia 1 each 2 times daily. 100 each 2 5 Active ibuprofen 800 MG tabletIndication s:Left leg pain Take 1 tablet (800 mg) by mouth Every 8-12 hours as needed for mild pain or moderate pain. 90 tablet 1 5 Active Tirzepatide-Weig ht Management (Zepbound) 7.5 MG/0.5ML solution auto-injectorInd ications:Class 1 obesity with serious comorbidity and body mass index (BMI) of 32.0 to 32.9 in adult, unspecified obesity type,Pseudotumor cerebri Inject 0.5 mL (7.5 mg) under the skin 1 (one) time per week. 2 mL 2 5 Active Active Problems Patient Care Coordination No te [...] by . She was given information for [facility] for sooner appointments. Pt is aware [...] Health Integration Plan Internal Follow up with [facility] External OP therapy referral and OP psychiatry Referral Patient Self Plan Patient to utilize skills provided in intervention , Patient to reach out to [facility] team as needed, Patient to engage in OP therapy , and Patient to reach out to [facility] as needed Cannabis use disorder 12/16/2023 [...] and protective factors. She was referred to [facility] on 09/26/23. Clinician provided information so that Madison can contact agency for the intake process. Pt is currently on medication to treat symptoms (see PCP note). PLAN: (check all that apply) Continue with current services (defined as services in the past 12 months) . Pt was referred to [facility] on 09/26/23. I printed out letter with agency's contact information. Resolved Problems Problem Noted Date Diagnosed Date Resolved Date Current moderate episode of major depressive disorder without prior episode ([facility]) 03/12/2023 12/16/2023 Assessment & Plan (03/12/2023 4:46 PM EST): Madison reports feeling anhedonia feeling depressed, sleep disturbances, little energy, poor appetite, difficulties concentrating and passive SI; denies plan and/or attempt. She also reports feeling on edge, difficulties controlling worries, worrying about different things, trouble relaxing and fearfulness. She agrees to follow up 03/12. I will reach out to Plant Maintenance Worker to inform Madison would like a call. [...] and protective factors. She was referred to [facility] on 09/26/23. Clinician provided information so that Madison can contact agency for the intake process. Pt is currently on medication to treat symptoms (see PCP note). PLAN: (check all that apply) Continue with current services (defined as services in the past 12 months) . Pt was referred to [facility] on 09/26/23. I printed out letter with [...] external referral and will reach out to [facility] clinician during next medical f/u if [...] of change. PLAN: 1. Follow up with [facility]: Recommended for follow-up: As needed 2. Patient goal is to explore additional coping mechanisms and meet with [facility] critical care specialist 3. Behavioral Recommendations a. SDOH referral b. Yoga c. Deep Breathing Encounters Date Type Department Care Team Description 04/14/2025 2:30 PM EST Office Visit [facility] OPTOMETRY [address] [place] [address] Elizabeth Phillip, OD Subconjunctival hemorrhage of right eye (Primary Dx); Pharmacologic anisocoria 04/14/2025 Travel 04/05/2025 Telephone [facility] MEDICINE [address] [place], [place] [phone] Margoth Baig, RITA Nurse Triage 03/18/2025 Outside Procedure [facility] [address] [place] [address] Elizabeth Phillip, OD Presbyopia (Primary Dx) 03/16/2025 3:30 PM EST Office Visit [facility] OPTOMETRY [address] [place] [address] Elizabeth Phillip, OD Regular astigmatism of both eyes (Primary Dx) 03/16/2025 Travel 03/11/[address] [address] Margoth Baig ANP Nurse Triage 02/25/[address] [address] Margoth Baig ANP Maria Luisa recall 02/22/2025 9:30 AM EDT Office Visit [address] [address] Margoth Baig ANP Class 1 obesity with serious comorbidity and body mass index (BMI) of 32.0 to 32.9 in adult, unspecified obesity type (Primary Dx); Iron deficiency anemia due to chronic blood loss; Pseudotumor cerebri; Hair loss; Musculoskeletal pain of extremity; LAURO (generalized anxiety disorder); Moderate depressive disorder 02/22/2025 Travel 02/21/[address] [address] Margoth Baig ANP chart prep 02/20/[address] [address] Margoth Baig ANP Class 2 severe obesity with serious comorbidity and body mass index (BMI) of 36.0 to 36.9 in adult, unspecified obesity type 02/15/2025 Patient Outreach [address] [address] Margoth Baig ANP Pre-visit Planning (SDOH screening completed on 06/25/24) 01/28/2025 9:00 AM EDT Office Visit [facility] OPTOMETRY [address] [place] [phone] Kenji, Elizabeth, OD Proptosis (Primary Dx); [place] dot; Pinguecula of both eyes; Presbyopia 01/28/2025 Results Follow-Up [address] [address] Margoth Baig ANP Hemoglobin A1c, Lipid Panel, Standard, Insulin, Additional followed-up results: 2 01/28/2025 Travel 01/20/2025 11:30 AM EDT Office Visit [address] [address] Margoth Baig ANP Hypoglycemia (Primary Dx); Hyperlipidemia, unspecified hyperlipidemia type; Iron deficiency anemia due to chronic blood loss; Left leg pain; Encounter for immunization; Encounter for vaccination; Class 1 obesity with serious comorbidity and body mass index (BMI) of 32.0 to 32.9 in adult, unspecified obesity type; Dietary counseling; Exercise counseling; Screening for diabetes mellitus 01/20/2025 Travel 01/18/2025 Telephone [facility] [address] [place], [place] [phone] Margoth Baig ANP chart prep 01/17/2025 Refill [facility] [address] [place] [address] Araceli Sinha MD Class 2 severe obesity with serious comorbidity and body mass index (BMI) of 36.0 to 36.9 in adult, unspecified obesity type (CMS/HCC) 01/17/2025 Refill [facility] [address] [place], [place] [phone] Margoth Baig ANP Class 2 severe obesity with serious comorbidity and body mass index (BMI) of 36.0 to 36.9 in adult, unspecified obesity type (CMS/HCC) 01/17/2025 Telephone [facility]IN [facility] [address] [place], [place] [phone] Laura Wiggins MD ER Follow-up 01/17/2025 Travel from Last 3 Months Immunizations Immunization Administration [...] problems with any of the following? Mold;Lead Yaurel or Pipes;Water leaks 06/25/2024 Food Insecurity Answer [...] Sign Reading Time Taken Comments Blood Pressure 108/80 02/22/2025 9:39 AM EDT Pulse 76 02/22/2025 9:39 AM EDT Temperature 36.3 C (97.3 F) 02/22/2025 9:39 AM EDT Respiratory Rate 12 02/22/2025 9:39 AM EDT Oxygen Saturation 98% 02/22/2025 9:39 AM EDT Inhaled Oxygen Concentration - - Weight 89.4 kg (197 lb 2 oz) 02/22/2025 9:39 AM EDT Height 165.1 cm (5' 5 ) 02/22/2025 9:39 AM EDT Body Mass Index 32.8 02/22/2025 9:39 AM EDT Plan of Treatment Upcoming Encounters Date Type Department Care Team (Late st Contact Info) Description 05/24/2025 9:30 AM EST Office Visit [facility] MEDICINE [address] [place], [place] [phone] Margoth Baig ANP [address] [place], [place] [phone] Health Maintenance Due Date Last Done Comments Dental Oral Exam 1980 Dental Prophylaxis 1980 Dental X-Ray: Bitewings 1980 Dental X-Ray: Full Mouth 1980 Family Planning (PISQ) 07/03/1995 HPV Vaccines (2 - 3-dose series) 12/16/2023 11/18/2023 Depression Monitoring 01/01/2025 07/01/2024, 025 Mammogram 04/01/2025 04/01/2024, 08/2023, 04/01/2024, Additional history exists SDOH Screening 06/25/2025 06/25/2024 Alcohol/Substance Use Screening 08/09/2025 08/09/2024 Disability Screening 08/09/2025 08/09/2024 Tobacco Screening 02/22/2026 02/22/2025 Cervical Cancer Screening 04/22/2027 HPV/Cotest 04/22/2027 10/10/2021 Pap Smear 04/22/2027 04/22/2024, 10/10/2021 Lipid Panel 01/28/2030 01/28/2025, 072 06/2023, 06/06/2022, Additional history exists Zoster Vaccines (1 of 2) 2030 DTaP/Tdap/Td [...] Procedure Name Priority Date/Time Associated Diagnosis Comments TSH Routine 01/28/2025 10:18 AM EDT Proptosis T3 UPTAKE Routine 01/28/2025 10:18 AM EDT Proptosis T3, TOTAL Routine 01/28/2025 10:18 AM EDT Proptosis TSI (THYROID STIMULATING IMMUNOGLOBULIN) Routine 01/28/2025 10:18 AM EDT Proptosis THYROID PEROXIDASE ANTIBODIES Routine 01/28/2025 10:18 AM EDT Proptosis BASIC METABOLIC PANEL Routine 01/28/2025 10:18 AM EDT Hypoglycemia CBC WITH AUTO DIFFERENTIAL Routine 01/28/2025 10:18 AM EDT Iron deficiency anemia due to chronic blood loss INSULIN Routine 01/28/2025 10:18 AM EDT Hypoglycemia C-PEPTIDE Routine 01/28/2025 10:18 AM EDT Hypoglycemia LIPID PANEL, STANDARD Routine 01/28/2025 10:18 AM EDT Hyperlipidemia, unspecified hyperlipidemia type HEMOGLOBIN A1C Routine 01/28/2025 10:18 AM EDT Hypoglycemia HM PAP/HPV Routine 04/22/2024 12:00 AM EST BI US BREAST LIMITED LEFT STAT 04/01/2024 11:52 AM EST THINPREP IMAGING PAP AND HPV MRNA E6/E7, WITH CT/NG, TRICHOMONAS Routine 10/10/2021 3:14 PM EDT ZZZ HISTORICAL HEPATITIS C AB W/REFL TO HCV RNA, QN, PCR Routine 08/20/2021 10:22 AM EDT HIV 1/2 ANTIGEN/ANTIBODY, FOURTH GENERATION W/RFL Routine 08/20/2021 10:22 AM EDT from Last 3 Months or Most Recently Relevant to Health Maintenance Results * (ABNORMAL) CBC auto differential (01/28/2025 10:18 AM EDT) White Blood Count 7.4 4.8 - 10.8 X10*3/uL [facility] Red Blood Count 4.64 4.20 - 5.50 X10*6/uL [facility] Hemoglobin 12.0 12.0 - 16.0 g/dl [facility] Hematocrit 37.4 37.0 - 47.0 % [facility] Mean Corpuscular Volume 80.6 80.0 - 98.0 fL [facility] Mean Corpuscular Hemoglobin 25.9(L) 27.0 - 33.0 pg [facility] Mean Corpuscular HGB Conc 32.1 31.0 - 35.0 g/dl [facility] Red Cell Distribution Width 15.0 11.0 - 16.0 % [facility] Platelet Count 266 160 - 400 X10*3/uL [facility] Mean Platelet Volume 9.7 9.4 - 12.3 fL [facility] Neutrophils Percent Auto 58.6 45 - 73 % [facility] Imm Gran Pct Auto 0.3 0.0 - 0.4 % [facility] Lymphocytes Percent Auto 33.4 20 - 40 % [facility] Monocytes Percent Auto 6.6 2 - 11 % [facility] Eosinophils Percent Auto 0.8 0 - 4 % [facility] Basophils Percent Auto 0.3 0 - 2 % [facility] NRBC Pct Auto 0.0 0.0 - 0.2 /100WBC [facility] Neutrophils Absolute Auto 4.4 2.0 - 8.3 x10*3/uL [facility] Imm Gran Abs Auto 0.02 0.00 - 0.03 X10*3/uL [facility] Lymphocytes Absolute Auto 2.5 1.2 - 4.9 X10*3/uL [facility] Monocytes Absolute Auto 0.5 0.1 - 1.2 X10*3/uL [facility] Eosinophils Absolute Auto 0.1 0.0 - 0.4 X10*3/uL [facility] Basophils Absolute Auto 0.0 0.0 - 0.2 X10*3/uL [facility] NRBC Abs Auto 0.000 0.0 - 0.012 X10*3/uL [facility] Blood Venous blood specimen / Unknown 01/28/2025 10:18 AM EDT 01/28/2025 11:26 AM EDT us Margoth Baig [facility] LAB BLOOD ORDERABLES Final Resul t [facility] [address] [place] [phone] * Thyroid peroxidase antibody (01/28/2025 10:18 AM EDT) Thyroid Peroxidase Antibodies 1 <9 IU/mL [facility] Comment:THIS TEST WAS PERFOR MED AT:[employer] [place] [phone] CONNER MD Blood Venous blood specimen / Unknown 01/28/2025 10:18 AM EDT 01/28/2025 11:26 AM EDT Elizabeth Kenji OD LAB BLOOD ORDERABLES Final Re sult Performing Organization Address [facility]/ZIP Co de Phone Number [facility] [address] [place] [phone] * Insulin (01/28/2025 10:18 AM EDT) Insulin 8 2 - 29 uU/mL [facility] Comment:This test was perfor med using the [employer] chemiluminescentmethod. Values obtained from different assay methods cannot beused interchangeably. This insulin assay shows a possiblecross-reactivity with antibodies generated against insulin(immunoreactive insulin and some patients treated withbovine or porcine insulin). Insulin levels may be measuredlower in patients with insulin autoimmune syndrome orfamilial high pro-insulinemia. Blood Venous blood specimen / Unknown 01/28/2025 10:18 AM EDT 01/28/2025 11:26 AM EDT us Margoth Baig ANP LAB BLOOD ORDERABLES Final Resul t Performing Organization Address [facility]/ZIP Co de Phone Number [facility] [address] [place] [phone] * Thyroid stimulating immunoglobulin (01/28/2025 10:18 AM EDT) Thyroid Stimulating Immunoglobulin <89 <140 % baseline [facility] Comment: Thyroid stimulating immunoglobulins (TSI) can engagethe TSH receptors resulting in hyperthyroidism inGraves' disease patients. TSI levels can be useful inmonitoring the clinical outcome of Graves' disease aswell as assessing the potential for hyperthyroidismfrom maternal- transfer. TSI results greater thanor equal to (>=) 140% of the Reference Control areconsidered positive.NOTE:A serum TSH level greater than 350 micro-InternationalUnits/mL can interfere with the TSI bioassay andpotentially give false positive results.Patients who are and are suspected of havinghyperthyroidism should have both TSI and humanChorionic Gonadotropin(hCG) tests measured. A serumhCG level greater than 40,625 mIU/mL can interferewith the TSI bioassay and may give false negativeresults. In these patients it is recommended thata second TSI be obtained when the hCG concentrationfalls below 40,625 mIU/mL (usually after uqcpvplotnonm52-mvvtn gestation).The analytical performance characteristics of thisassay have been determined by [facility] [place], [place]. The modificationshave not been cleared or approved by the FDA. Thisassay has been validated pursuant to the CLIAregulations and is used for clinical purposes.THIS TEST WAS PERFORMED AT:[employer]/[facility] [place] [phone] W. MASON,MD,PHD Blood Venous blood specimen / Unknown 01/28/2025 10:18 AM EDT 01/28/2025 11:26 AM EDT us Elizabeth Phillip OD LAB BLOOD ORDERABLES Final Re sult [facility] [address] [place] [phone] * C-Peptide (01/28/2025 10:18 AM EDT) C-Peptide 2.84 0.80 - 3.85 ng/mL [facility] Comment:THIS TEST WAS PERFOR MED AT:[employer] [address] [phone] CONNER MD Blood Venous blood specimen / Unknown 01/28/2025 10:18 AM EDT 01/28/2025 11:26 AM EDT Margoth Baig ANP LAB BLOOD ORDERABLES Final Resul t Performing Organization Address [facility] Co de Phone Number [facility] [address] [place] [phone] * T3, Total (01/28/2025 10:18 AM EDT) T3, Total 90 76 - 181 ng/dL [facility] Comment:THIS TEST WAS PERFOR MED AT:[employer] [place] [phone] CONNER MD Blood Venous blood specimen / Unknown 01/28/2025 10:18 AM EDT 01/28/2025 11:26 AM EDT Elizabeth Phillip OD LAB BLOOD ORDERABLES Final Re sult Performing Organization Address [facility] de Phone Number [facility] [address] [place] [phone] * T3 Uptake (01/28/2025 10:18 AM EDT) Pathologist [facility] T3 Uptake 27 22 - 35 % [facility] Comment:THIS TEST WAS PERFOR MED AT:[facility] [place] [phone] CONNER MD Blood Venous blood specimen / Unknown 01/28/2025 10:18 AM EDT 01/28/2025 11:26 AM EDT Elizabeth Phillip OD LAB BLOOD ORDERABLES Final Re sult Performing Organization Address [facility] Co de Phone Number [facility] [address] [place] [phone] * TSH (01/28/2025 10:18 AM EDT) [facility] Thyroid Stimulating Hormone 1.49 0.32 - 4.0 uIU/mL [facility] Comment:TSH 3rd Generation ( [employer]) Blood Venous blood specimen / Unknown 01/28/2025 10:18 AM EDT 01/28/2025 11:26 AM EDT Elizabeth Phillip OD LAB BLOOD ORDERABLES Final Re sult Performing Organization Address City/[facility]/ZIP Co de Phone Number [facility] [address] [place] [phone] * Hemoglobin A1c (01/28/2025 10:18 AM EDT) Hemoglobin A1c 5.3 <6.0 % [facility] Comment:Hemoglobin A1C Refer ence Range Adults: 4.8 - 6.0 % Non diabetic: < 6.0 % Goal: < 7.0 %Additional Action Suggested: > 8.0 %Note: Hemoglobin A1c results are invalid for patients with abnormal amounts of HbF. Blood transfusions may impact the HbA1c concentration in the patient sample. Estimated Average Glucose 105 mg/dL [facility] Comment:eAG = Estimated ave rage glucose which is %A1C expressed asaverage glucose, using the formula of the Q7Q-ZchekdwOxztflk Glucose study (ADAG), Diabetes Care, Vol.31,#8,Nov. 2007 Blood Venous blood specimen / Unknown 01/28/2025 10:18 AM EDT 01/28/2025 11:26 AM EDT Margoth Baig ANP LAB BLOOD ORDERABLES Final Resul t Performing Organization Address [facility]/ZIP Co de Phone Number [facility] [address] [place] [phone] * (ABNORMAL) Lipid Panel, Standard (01/28/2025 10:18 AM EDT) Triglycerides 107 <150 mg/dL [facility] Comment:Desirable Triglyceri de: less than 150 mg/dLBorderline High Triglyceride 150-199 mg/dLHigh Triglyceride: 200-499 mg/dLVery High Triglyceride: greater than or equal to 5OO mg/dL Cholesterol 220(H) <200 mg/dL [facility] Comment:Desirable Cholestero l: less than 200 mg/dLBorderline High Cholesterol: 200-239 mg/dLHigh Cholesterol: greater than 239 mg/dL LDL Cholesterol Calculated 153(H) <100 mg/dL [facility] Comment:Desirable LDL: less than 100 mg/dLNear Optimal/Above Optimal LDL: 110- 129 mg/dLBorderline High LDL: 130-159 mg/dLHigh LDL: 160-189 mg/dLVery High LDL: greater than or equal to 190 mg/dL HDL Cholesterol 46 >40 mg/dL [facility] Comment:Desirable HDL: great er than 40 mg/dL Note: This HDL assay may give artificially low results in patients with liver disease. Blood Venous blood specimen / Unknown 01/28/2025 10:18 AM EDT 01/28/2025 11:26 AM EDT Margoth Baig [facility] LAB BLOOD ORDERABLES Final Resul t [facility] [address] [place] [phone] * (ABNORMAL) Basic Metabolic Panel (01/28/2025 10:18 AM EDT) Sodium 141 135 - 145 mmol/L [facility] Potassium 4.4 3.3 - 5.1 mmol/L [facility] Chloride 108 96 - 108 mmol/L [facility] Carbon Dioxide 29 22 - 29 mmol/L [facility] Anion Gap 8(L) 12 - 20 [facility] Urea Nitrogen (BUN) 10 9 - 16 mg/dL [facility] Creatinine, Serum 0.82 0.5 - 1.4 mg/dL [facility] Estimated Glomerular Filt Rate >60 [facility] Comment:Chronic Kidney Disea se: Estimated GFR < 60 mL/min/1.41k7Vzpiir Kidney Disease: Estimated GFR < 15 mL/min/1.73m2 Glucose 95 60 - 115 mg/dL [facility] Calcium 8.9 8.4 - 10.2 mg/dL [facility] Blood Venous blood specimen / Unknown 01/28/2025 10:18 AM EDT 01/28/2025 11:26 AM EDT us Margoth Baig ANP LAB BLOOD ORDERABLES Final Resul t [facility] [address] [place] [phone] [phone] * HM PAP/HPV (04/22/2024 12:00 AM EST) us Historical Provider MD HEALTH MAINTENANCE Final Result * BI US Breast Limited Left (04/01/2024 11:52 AM EST) Anatomical Region Laterality Modality Breast Left Ultrasound 04/01/2024 11:5 2 AM EST Narrative 04/01/2024 12:18 PM EST [facility] [address] [place] [address] Ultrasound Report Signed Patient: Madison Eric MR#: [id number] : 1980 Acct:[id number] Age/Sex: 43 / F ADM Date: 04/01/24 Loc: HO.MAMMO Attending Dr: Emil Rodriguez CNM Ordering Physician: EMIL RODRIGUEZ CNM Date of Service: 04/01/24 Procedure(s): US breast LT limited mamm only Accession Number(s): [id number] cc: EMIL RODRIGUEZ CNM; MARGOTH BAIG NP [...] 12:15 PM [facility] Dictated By: Lluvia Carpio DO Signed By: <Electronically signed by Lluvia Carpio DO in OV> 04/01/24 1215 DD/ 1152 TD/TT: 04/01/24 1207 Perforator Loader: Procedure Note Donmarlys, Image - 04/01/2024 [facility] [address] [place] [address] Ultrasound Report Signed Patient: Madison EricMR#: [id number] : 1980Acct:[id number] Age/Sex: 43 / FADM Date: 04/01/24 Loc: HO.MAMMO Attending Dr: Emil Rodriguez CNM Ordering Physician: EMIL RODRIGUEZ CNM Date of Service: 04/01/24 Procedure(s): US breast LT limited mamm only Accession Number(s): [id number] cc: EMIL RODRIGUEZ CNM; MARGOTH BAIG NP [...] 04/01/24 1215 DD/ 1152 TD/TT: 04/01/24 1207 Perforator Loader: us Emil Rodriguez CNM IM US PROCEDURES Edited Result - Final * THINPREP TIS PAP AND HPV mRNA E6/E7, CT/NG, TRICH (10/10/2021 3:14 PM EDT) Chlamydia trachomatis RNA, TMA, Urogenital NOT DETECTED NOT DETECTED [facility] Clinical Information: None given [facility] COMMENT SEE COMMENT [facility] Comment: The analytical performance characteristics of this assay, when used to test SurePath(TM) specimens have been determined by [employer]. The modifications have not been cleared or approved by the FDA. This assay has been validated pursuant to the CLIA regulations and is used for clinical purposes. For additional information, please refer to https://[employer].GOintegro/faq/SFV860 (This link is being provided for information/ [...] along with historic and current clinical information. Comment: This Pap test has been evaluated with computer assisted technology. [facility] Cardiac Technician: SEE COMMENT [facility] Comment: ED, CT(ASCP) CT screening location: [place] [address] HPV nRNA E6/E7 Not Detected Not Detected [facility] Comment: Methodology: Test Preparer-Mediated Amplification This assay detects E6/E7 viral messenger RNA (mRNA) from 14 high-risk HPV types (16,18,31,33,35,39,45,51,52,56,58,59,66,68). Cervical sources are required for HPV testing. If a vaginal source from a patient who has had a total hysterectomy with removal of cervix was submitted, please contact the testing laboratory for alternative testing options. For additional information, please refer to http://[employer].GOintegro/faq/QQB945x0 (This link if provided for information/ educational purposes only.) Interpretation/Re sult: Negative for intraepithelial lesion or malignancy. [facility] LMP: 10/02/2021 [facility] Neisseria gonorrhoeae RNA, TMA, Urogenital NOT DETECTED NOT DETECTED [facility] Prev. BX: NONE [facility] Prev. PAP: NONE [facility] SOURCE: None given [facility] Statement Of Adequacy: SEE COMMENT [facility] Comment: Satisfactory for evaluation. Endocervical/transformation zone component absent. Trichomonas vaginalis, QL, TMA, PAP Vial NOT DETECTED NOT DETECTED [facility] Comment: The analytical performance characteristics of this assay have been determined by [employer]. The modifications have not been cleared or approved by the FDA. This assay has been validated pursuant to the CLIA regulations and is used for clinical purposes. For additional information, please refer to http://[employer].GOintegro/ faq/Trichomonastma (This link is being provided for information/ educational purposes only.) 10/10/2021 3:14 PM EDT Emil Rodriguez [facility] LAB PATHOLOGY ORDERABLES Final Result Performing Organization Address [facility] Phone Number [facility] [address] * HEPATITIS C AB W/REFL TO HCV RNA, QN, PCR (08/20/2021 10:22 AM EDT) HEPATITIS C ANTIBODY NON-REACT FRIEDA NON-REACT FRIEDA [facility] INDEX 0.01 <1.00 [facility] Comment: HCV antibody was non-reactive. There is no laboratory evidence of HCV infection. In most cases, no further action is required. However, if recent HCV exposure is suspected, a test for HCV RNA (test code 89428) is suggested. For additional information please refer to http://[employer].GOintegro/faq/XXG90y9 (This link is being provided for informational/ educational purposes only.) 08/20/2021 10:2 2 AM EDT Margoth Gwendolyn ANP HISTORICAL/NON ORDERABLE LABS Fi nal Result Performing Organization Address [facility] de Phone Number [facility] [address] * HIV 1/2 ANTIGEN/ANTIBODY,FOURTH GENERATION W/RFL (08/20/2021 10:22 AM EDT) HIV-1/2 ANTIGEN AND ANTIBODIES, 4TH GENERATION W/ REFLEX NON-REACT FRIEDA NON-REACT FRIEDA [facility] Comment: HIV-1 antigen and HIV-1/HIV-2 [...] purpose. For additional information please refer to http://education.myinfoQ.Meituan.com/faq/LII385 (This link is being provided for informational/ educational purposes only.) The performance of this assay has not been clinically validated in patients less than 2 years old. 08/20/2021 10:2 2 AM EDT [facility] LAB BLOOD ORDERABLES Final Resul t [facility] [address] from Last 3 Months or Most Recently Relevant to Health Maintenance Insurance [facility] STAND ADULT Care Teams Java Engineer Relationship Specialty Start Date End Date Margoth Baig ANP [address] [place], [place] [address] [address] PCP - General Family Medicine 03/26/21 Daniela Joy RN Care Manager 01/22/23 Jeramie Damon Box Lining Machine OperatorNews Internship 10/28/23
--- OUTSIDE RECORDS SUMMARY | 2025-04-15 15:00 | XMS_ITS | Encounter Summary ---
Author Organization [employer] Address [address] [facility] [address] [place] [address] Care Team Providers Care Spine Nurse Name Role Phone Genna Snow Primary Care Provider [phone] Reason for Visit * Reason Comments Med Refill Encounter Details Date Type Department Care Team ([facility] st Contact Info) Description 11/07/2023 Refill [facility] [address] [place], [place] [phone] Genna Snow ANP [address] [place], [place] [phone] Depressive disorder Social History Tobacco Use Types [...] AM EST Office Visit [facility] [address] [place] [phone] Genna Snow ANP [address] [place] [address] documented as of this encounter Visit Diagnoses Diagnosis Depressive disorder Depressive disorder, not elsewhere classified documented in this encounter Additional Health Concerns Assessment Noted Time PHQ-9 Depression Total Score: 14 024 3:11 PM EDT documented as of this encounter Care Teams Spine Nurse Relationship Specialty Start Date End Date Genna Snow ANP [address] [place] [phone] PCP - General Family Medicine 03/26/21 Daniela Joy RN Care Manager 01/22/23 Jeramie Damon Registered Nurse Cardiovascular [employer] 10/28/23 documented as of this encounter
--- OUTSIDE RECORDS SUMMARY | 2025-04-15 15:00 | XMS_ITS | Clinical Summary ---
Author Organization [facility] Address [address] [facility] [address] [place] [phone] Phone Care Team Providers Care Oyster Harvester Name Role Phone Genna Snow NP Primary Care Provider [phone] Allergies No known active allergies Medications No [...] ACO C3 ACO C3 ACO C3 ACO [facility] [place] [place] [phone] Care Teams Oyster Harvester Relationship Specialty Start Date End Date Genna Snow NP [address] [place] [id number] PCP - General Nurse Practitioner 05/10/23 Additional Source Comments The information contained in this document represents components of the legal health record. It is not the complete legal health record.[facility]
== END 2025-04-15 13:55 | disposition home or self-care (01) ==
LOC: HO.RHES 13:12
PROVIDERS: PCP Nurse Practitioner Primary Care; Visit Provider Student in an Organized Health Care Education/Training Program
DX: M54.50 Low back pain, unspecified (principal); G89.29 Other chronic pain; M70.62 Trochanteric bursitis, left hip; S86.911A Strain of unspecified muscle(s) and tendon(s) at lower leg level, right leg, initial encounter
CPT/HCPCS: 99213

== ENCOUNTER → 2025-04-15 13:11 | Outpatient (BNVA) | payer MEDICAID, SELFPAY | PROVIDERS: PCP Nurse Practitioner Primary Care; Visit Provider Student in an Organized Health Care Education/Training Program | DX: G89.29 Other chronic pain (principal); M54.50 Low back pain, unspecified; M70.62 Trochanteric bursitis, left hip; S86.911A Strain of unspecified muscle(s) and tendon(s) at lower leg level, right leg, initial encounter; X58.XXXA Exposure to other specified factors, initial encounter; Y93.29 Activity, other involving ice and snow | CPT/HCPCS: 96372; 99212; J1885 ==